=== PATIENT | female | born 1965 | race Caucasian/White ===

== ENCOUNTER 2023-06-19 14:20 | Emergency (ER) | payer SELFPAY ==
[2023-06-19 14:50] VITALS: BP 112/69; PULSE 92; RESP 20; TEMP 36.9; O2SAT 96; BMI 18.8
[2023-06-19 15:30] VITALS: BP 112/69; PULSE 92; RESP 16; O2SAT 96
[2023-06-19 15:36] LABS: Coronavirus 19, PCR Not Detected (NotDetected); Influenza B, PCR Not Detected (NotDetected)
[2023-06-19] MEDS: KETOROLAC 30MG/ML VIAL 30 MG IV (15:37)
[2023-06-19] MEDS: ACETAMINOPHEN 1,000MG/100ML VIAL 1000 MG IV (15:37)
[2023-06-19 15:43] LABS: Basophils % 0.4 % (0.1-2.0); Eosinophils % 0.2 % (0.1-12.0); Hematocrit 42.8 % (37.0-47.0); Hemoglobin 14.1 g/dL (12.2-16.2); Lymphocytes # 1.3 K/mm3 (0.7-4.5); Lymphocytes % 10.8 % (10-50); Mean Corpuscular HGB Conc 32.9 g/dL (31.8-35.4); Mean Corpuscular Hemoglobin 29.4 pg (27.0-31.2); Mean Corpuscular Volume 89.2 fl (81-99); Mean Platelet Volume 10.9 fl (7.4-10.4); Monocytes # 0.7 K/mm3 (0.1-1.0); Monocytes % 5.8 % (1.7-9.3); Neutrophils # 9.7 K/mm3 (1.8-7.8); Neutrophils % 82.7 % (37.0-80.0); Platelet Count 137 K/mm3 (142-424); Red Cell Distribution Width 14.1 % (11.5-17.5); White Blood Count 11.7 K/mm3 (4.8-10.8)
[2023-06-19 15:53] LABS: Chloride 106 mmol/L (98-107); Potassium 3.2 mmoL/L (3.5-5.1); Sodium 137 mmol/L (136-145)
[2023-06-19 15:55] LABS: Alanine Aminotransferase 20 U/L (12-78); Blood Urea Nitrogen 14 mg/dl (7-17); Creatinine Clearance Estimated 80 mL/min (50-200); Estimated Glomerular Filt Rate 102 ml/min (>60); GFR (African American) 124 ML/MIN (>60)
[2023-06-19 15:56] LABS: Albumin Level 3.2 g/dl (3.5-5.0); Albumin/Globulin Ratio 1.3 (1.1-1.8); Alkaline Phosphatase 90 U/L (38-126); Anion Gap 8.2 mEq/L (5-15); Aspartate Amino Transferase 30 U/L (14-36); Bilirubin,Total 0.2 mg/dl (0.2-1.3); Carbon Dioxide 26 mmol/L (22.0-30.0); Creatine Kinase 73 U/L (30-135); Globulin 2.5 g/dL (1.3-3.2); Glucose 99 mg/dl (74-100); Magnesium 1.8 mg/dl (1.6-2.3); Total Protein,Serum 5.7 g/dl (6.3-8.2)
[2023-06-19 16:00] VITALS: BP 122/70; PULSE 94; RESP 18; O2SAT 96
--- NOTE | 2023-06-19 16:03 | CT_ITS ---
PROCEDURE INFORMATION: Exam: CT Head Without Contrast Exam date and time: 06/19/2023 4:11 PM Age: 57 years old Clinical indication: Pain; Headache; Additional info: Bilateral tinnitus TECHNIQUE: Imaging protocol: Computed tomography of the head without contrast. Radiation optimization: All CT scans at this facility use at least one of these dose optimization techniques: automated exposure control; mA and/or kV adjustment per patient size (includes targeted exams where dose is matched to clinical indication); or iterative reconstruction. COMPARISON: No relevant prior studies available. FINDINGS: Brain: Normal. No hemorrhage. Unremarkable white matter. No mass effect. Cerebral ventricles: No ventriculomegaly. Paranasal sinuses: Small fluid level in the left maxillary sinus. Mastoid air cells: Visualized mastoid air cells are well aerated. Bones/joints: Unremarkable. No acute fracture. Soft tissues: Unremarkable. IMPRESSION: 1. No acute intracranial abnormality. 2. Minor left maxillary sinus disease.
--- NOTE | 2023-06-19 16:06 | CT_ITS ---
PROCEDURE INFORMATION: Exam: CT Cervical Spine Without Contrast Exam date and time: 06/19/2023 4:13 PM Age: 57 years old Clinical indication: Neck pain; Additional info: Midline pain rad lle TECHNIQUE: Imaging protocol: Computed tomography of the cervical spine without contrast. Radiation optimization: All CT scans at this facility use at least one of these dose optimization techniques: automated exposure control; mA and/or kV adjustment per patient size (includes targeted exams where dose is matched to clinical indication); or iterative reconstruction. COMPARISON: CT HEAD/BRAIN WO CON 06/19/2023 4:11 PM FINDINGS: Bones/joints: No acute fracture. Normal alignment. Mild disc space narrowing at C5-C6. No significant disc bulge or herniation. No severe spinal canal stenosis. Mild bilateral bony foraminal stenosis at C5-C6. Lungs: Biapical bronchiectasis and chronic appearing pleural thickening. Soft tissues: Unremarkable. IMPRESSION: No acute findings.
--- NOTE | 2023-06-19 16:06 | [facility].EDGENADL ---
Discharge Plan Disposition Patient Disposition: Home, Self-Care Prescriptions Prescriptions: No Action No Known Home Medications Referrals Follow up/Referrals: Brice Hughes DO [Staff Physician] - See instructions Provider,Referral, [Primary Care Provider] - See instructions Activity Restrictions/Add. Instructions Additional Instructions/Restrictions: At this time it was felt you are safe to be discharged home. If new or worsening symptoms please do not hesitate to return the emergency department. Please call and schedule an appointment with Dr. Hughes for next week as soon as you are able to establish care for further workup. Clinical Impressions Clinical Impression: Hypocalcemia, Hypokalemia, Pain, Influenza Discharge ED Provider: Fausto Jones General Adult HPI General Chief complaint: PAIN Stated complaint: arm/back pain Time Seen by Provider: 06/19/23 15:52 Mode of Arrival: Ambulatory Source of Information: Patient Limitations: No Limitations Description of Symptoms (Recalled from ER Triage Doc. 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 Onset was chronic, occurring since March. She is a [employer] worker. It is intermittent however has gotten progressively more continuous, in a bandlike distribution across her mid neck radiating down bilateral lower extremities left worse than right, intermittent left lower extremity pain. She has had no vertiginous symptoms however does have bilateral ringing in her ears which is near persistent. She has had some episodes of incontinence however feels as if she is about to go and does not make it to the restroom in time. No other acute complaints at this time. Denies trauma. No reported saddle anesthesia. Related Data Home Medications Medication Instructions Recorded Confirmed No Known Home Medications 06/19/23 06/19/23 Allergies Allergy/AdvReac Type Severity Reaction Status Date / Time morphine Allergy Verified 06/19/23 15:[address] [place] [address] Disclaimer: The information contained in this section may have been updated after the patient was seen, as this information can be updated by other users. Social History Smoking Status: Current every day smoker alcohol intake: never current occupational status: employed Travel in the last 8 weeks: None ROS Obtained: Yes Systems reviewed as appropriate & no additional complaints except as documented Physical Exam General General appearance: alert and in no apparent distress Head Head exam: atraumatic and normocephalic Eye Eye exam: Present PERRL and EOMI ENT ENT exam: Present mucous membranes moist and TM's normal bilaterally Neck Neck exam: Present normal inspection Chest Chest inspection: Present normal inspection and symmetric chest wall rise Respiratory Respiratory exam: Present normal lung sounds bilaterally; Absent respiratory distress Cardiovascular Cardiovascular exam: Present regular rate and normal rhythm Abdominal Exam Abdominal exam: Present soft; Absent tenderness Extremities Exam Extremities exam: Present normal inspection and other (5 out of 5 strength bilateral upper and lower extremities.) Neurological Exam Neurological exam: Present alert and CN II-XII intact; Absent motor sensory deficit Psychiatric Psychiatric exam: Present normal affect Skin Skin exam: Present warm and dry Medical Decision Making Barry Inquiry Pt receiving controlled substance: No Vital Signs: 06/19/23 14:50 06/19/23 15:30 06/19/23 16:00 Temperature 98.5 F Temperature Source Oral Pulse Rate 92 H 94 H Pulse Rate [Left Radial] 92 H Respiratory Rate 20 16 18 Blood Pressure 112/69 122/70 Blood Pressure [Right Arm] 112/69 Blood Pressure Mean [Right Arm] 83 Blood Pressure Source Automatic Cuff Automatic Cuff Blood Pressure Source [Right Arm] Automatic Cuff Blood Pressure Position Sitting Sitting Blood Pressure Position [Right Arm] Sitting 02 Sat by Pulse Oximetry 96 96 96 Oxygen Delivery Method Room Air Room Air Room Air 06/19/23 16:30 06/19/23 17:00 Temperature Temperature Source Pulse Rate 80 79 Pulse Rate [Left Radial] Respiratory Rate 14 18 Blood Pressure 99/53 L 104/62 L Blood Pressure [Right Arm] Blood Pressure Mean [Right Arm] Blood Pressure Source Automatic Cuff Automatic Cuff Blood Pressure Source [Right Arm] Blood Pressure Position Sitting Sitting Blood Pressure Position [Right Arm] 02 Sat by Pulse Oximetry 95 95 Oxygen Delivery Method Room Air Room Air Lab Data Lab Results 06/19/23 15:27: SARS-CoV-2 (PCR) Not detected, Influenza A Untype (PCR) Detected A, Influenza Type B (PCR) Not detected 06/19/23 15:30: WBC 11.7 H, RBC 4.80, Hgb 14.1, Hct 42.8, MCV 89.2, MCH 29.4, MCHC 32.9, RDW 14.1, Plt Count 137 L, MPV 10.9 H, Neut % (Auto) 82.7 H, Lymph % (Auto) 10.8, [place] % (Auto) 5.8, Eos % (Auto) 0.2, Baso % (Auto) 0.4, Neut # (Auto) 9.7 H, Lymph # (Auto) 1.3, [place] # (Auto) 0.7, Eos # (Auto) 0.0, Baso # (Auto) 0.0, Sodium 137, Potassium 3.2 L, Chloride 106, Carbon Dioxide 26, Anion Gap 8.2, BUN 14, Creatinine 0.60, Estimated Creat Clear 80, Estimated GFR 102, Est GFR ( Amer) 124, Glucose 99, Calcium 8.0 L, Magnesium 1.8, Total Bilirubin 0.2, AST 30, ALT 20, Alkaline Phosphatase 90, Total Creatine Kinase 73, Total Protein 5.7 L, Albumin 3.2 L, Globulin 2.5, Albumin/Globulin Ratio 1.3 06/19/23 16:53: Urine Color Yellow, Urine Appearance Clear, Urine pH 6.0, Ur Specific [place] 1.020, Urine Protein 1+, Urine Glucose (UA) Negative, Urine Ketones Trace, Urine Blood 1+, Urine Nitrate Negative, Urine Bilirubin Negative, Urine Urobilinogen 1.0, Ur Leukocyte Esterase Negative, Urine RBC Occasional, Urine WBC 3-5, Ur Squamous Epith Cells Occasional, Urine Bacteria Trace 06/19/23 15:30 06/19/23 15:30 Orders (Tests/Meds): ED MEDICATIONS Discontinued Medications Generic Name Dose Route Start Last Admin Trade Name Freq PRN Reason Stop Dose Admin Acetaminophen 1,000 mg 06/19/23 15:08 06/19/23 15:37 Acetaminophen 1,000mg/100ml Vial IV 06/19/23 15:09 1,000 mg ONCE ONE Administration Calcium Carbonate 500 mg 06/19/23 17:20 06/19/23 17:42 Oyster Shell Calcium (Elemental) 500mg Tab PO 06/19/23 17:21 500 mg ONCE ONE Administration Ketorolac Tromethamine 30 mg 06/19/23 15:08 06/19/23 15:37 Ketorolac 30mg/Ml Vial IV 06/19/23 15:09 30 mg ONCE ONE Administration Potassium Chloride 40 meq 06/19/23 17:20 06/19/23 17:41 Potassium Chloride 20meq Tab PO 06/19/23 17:21 40 meq ONCE ONE Administration ORDERS Category Date Time Status CT cervical spine wo con Stat Cat Scan 06/19/23 16:[address] head/brain wo con Stat Cat Scan 06/19/23 16:03 Completed CBC w/Auto Diff [Complete Blood Count Auto Diff] Stat Lab 06/19/23 15:30 Completed CK [Creatine Kinase] Stat Lab 06/19/23 15:30 Completed CMP [Comprehensive Metabolic Panel] Stat Lab 06/19/23 15:30 Completed MG [Magnesium] Stat Lab 06/19/23 15:30 Completed Rapid PCR Covid and Flu A/B Stat Lab 06/19/23 15:27 Completed UA [Urinalysis and Microscopic] Stat Lab 06/19/23 16:53 Completed Medical Decision Narrative: In summary patient is a 57-year-old female past medical history described above who presents emergency department for evaluation of pain that is chronic. Patient is hemodynamically stable nontoxic-appearing arrival, afebrile with a nonfocal neurologic exam. Differential diagnosis includes intracranial mass, cervical spine pathology, myositis, radiculopathy, among others. Workup will be conducted with hematologic labs, urinalysis, noncontrasted CT scan of the head and cervical spine, postvoid residual. Initial inventions include Tylenol and Toradol. Workup reviewed by me, hematologic labs are nonactionable, mild hypokalemia and hypocalcemia that is not critical and will be repleted orally, she does have influenza A but states that she tested positive for it last week. CT head informally interpreted by me, no large intra-axial hemorrhage or midline shift. Formal read shows moderate left maxillary sinus disease, no acute intracranial abnormality. PVR 25 mL not concerning for spinal cord compression. Given this patient is appropriate for discharge at this time and will follow-up on an outpatient basis to establish care with Dr. Hughes in the coming days. Critical Care Critical Care Time Critical Care Time: No
[2023-06-19 16:30] VITALS: BP 99/53; PULSE 80; RESP 14; O2SAT 95
[2023-06-19 16:30] LABS: Influenza A, PCR Detected (NotDetected)
--- NOTE | 2023-06-19 16:39 | PC.NURSE ---
Pt resting. No needs voiced. Call light within reach.
[2023-06-19 17:00] VITALS: BP 104/62; PULSE 79; RESP 18; O2SAT 95
[2023-06-19 17:00] LABS: Microscopic, Urine URINE MICROSCOPIC (MICROSCOPIC)
--- NOTE | 2023-06-19 17:21 | PC.NURSE ---
POST VOID 25MLS. NOTIFIED
[2023-06-19 17:26] LABS: Appearance,Urine CLEAR (Clear); Bilirubin,Urine Negative (Negative); Blood, Urine 1+ (Negative); Color,Urine YELLOW (Yellow); Glucose,Urine (UA) Negative (Negative); Ketones,Urine TRACE (Negative); Leukocyte Esterase,Urine Negative (Negative); Nitrate,Urine Negative (Negative); Protein,Urine 1+ (Negative)
[2023-06-19 17:32] LABS: Bacteria,Urine Trace /lpf; RBC,Urine Occasional #/hpf (0-3); Squamous Epithelial Cell,Urine Occasional #/hpf (0-5)
[2023-06-19] MEDS: POTASSIUM CHLORIDE 20MEQ TAB 40 MEQ PO (17:41)
[2023-06-19] MEDS: OYSTER SHELL CALCIUM (ELEMENTAL) 500MG TAB 500 MG PO (17:42)
--- NOTE | 2023-06-19 17:45 | PC.NURSE ---
DR SMITH AT BEDSIDE TO UPDATE PT
[2023-06-19 17:49] VITALS: BP 118/70; PULSE 78; RESP 18; TEMP 36.8; O2SAT 99
== END 2023-06-19 17:52 | disposition home or self-care (01) ==
PROVIDERS: Emergency Provider Emergency Medicine
DX: M54.2 Cervicalgia (principal); M54.6 Pain in thoracic spine; M79.604 Pain in right leg; M79.605 Pain in left leg; M79.602 Pain in left arm; E83.51 Hypocalcemia; E87.6 Hypokalemia; R32 Unspecified urinary incontinence; J10.89 Influenza due to other identified influenza virus with other manifestations; F17.200 Nicotine dependence, unspecified, uncomplicated; Z85.51 Personal history of malignant neoplasm of bladder
CPT/HCPCS: 70450; 72125; 80053; 81001; 82550; 83735; 85025; 87636; 96374; 96375; 99285; J0131

== ENCOUNTER 2023-07-04 15:56 | Observation (INO) | payer SELFPAY ==
[2023-07-04] VITALS (9 sets, daily range): BP systolic 109–134; BP diastolic 68–90; PULSE 81–116; RESP 16–20; TEMP 36.6–36.8; O2SAT 89–100; BMI 18.5
--- NOTE | 2023-07-04 | ECG_ITS ---
APPROVED REPORT Exam: Resting ECG HR:111 bpm ECG Measurements Heart Rate 111 AXES WI 136 P 82 QRSd 82 QRS 66 QT 317 T 59 QTc 383 Conclusion SINUS TACHYCARDIA ABNORMAL RHYTHM ECG UNCONFIRMED REPORT Electronically signed by : Ciaran Park MD 07/05/2023 20:01:03
--- NOTE | 2023-07-04 16:04 | PC.NURSE ---
PT PLACED ON 2L/NC. ROOM AIR SAT 89%
--- NOTE | 2023-07-04 16:15 | ED_ITS ---
Discharge Plan Disposition Chief Complaint: Shortness of Breath/Dyspnea Discharge ED Provider: Fausto Jones HPI <KUSH Mora - Last Filed: 07/04/23 17:38> General Chief Complaint: Shortness of Breath/Dyspnea Stated Complaint: SOA, back pain Time Seen by Provider: 07/04/23 16:14 Mode of Arrival: Wheelchair Source of Information: Patient Limitations: No Limitations Description of Symptoms (Recalled from ER Triage Doc. by RN): PT C/O SHORTNESS OF BREATH X 2 WEEKS. RECENTLY HAD FLU. REPORTS DIARRHEA, RESOLVED. COUGH AND BACK PAIN. History of Present Illness HPI narrative: Patient is a 57-year-old female with only significant [place]ub[place] history of ongoing tobaccoism but not on any home medications, and no chronic medical conditions who was recently diagnosed approximately 2 weeks ago with the flu. Patient reports increasing shortness of breath over those 2 weeks. And now patient gives a several day history of right-sided chest wall pain worse with breathing and movement but it does not radiate. She denies cardiac type chest pain fever chills hemoptysis hematochezia melena hematemesis. She reports a wet somewhat productive cough. There is no aggravating or relieving factors. Related Data Home Medications Medication Instructions Recorded Confirmed No Known Home Medications 06/19/23 07/04/23 Allergies Allergy/AdvReac Type Severity Reaction Status Date / Time morphine Allergy Verified 06/19/23 15:08 PFSH <KUSH Mora - Last Filed: 07/04/23 17:38> [facility] Disclaimer: The information contained in this section may have been updated after the patient was seen, as this information can be updated by other users. Social History (Updated 06/19/23 @ 17:48 by Fausto Jones MD) Smoking Status: Current every day smoker alcohol intake: never current occupational status: employed Travel in the last 8 weeks: None <KUSH Mora - Last Filed: 07/04/23 17:38> ROS Obtained: Yes Systems reviewed as appropriate & no additional complaints except as documented Physical Exam <KUSH Mora - Last Filed: 07/04/23 17:38> Narrative Physical exam: The patient is a thin, petite, unwell appearing, cachectic appearing 57-year-old female who otherwise is in no acute distress General General appearance: alert, in no apparent distress and other (Appears to be unwell) Head Head exam: atraumatic and normal inspection Eye Eye exam: Present normal appearance, PERRL and EOMI ENT ENT exam: Present normal exam, normal oropharynx and mucous membranes moist Neck Neck exam: Present normal inspection, full ROM and trachea midline; Absent lymphadenopathy Chest Chest inspection: Present normal inspection and symmetric chest wall rise; Absent tenderness Respiratory Respiratory exam: Present other (Deep breath provokes cough however breath sounds are heard to bases bilaterally. Patient has right greater than left in spiratory and expiratory wheezes and rhonchi.); Absent respiratory distress or accessory muscle use Cardiovascular Cardiovascular exam: Present normal rhythm, tachycardia, normal heart sounds, +S1 and +S2 Abdominal Exam Abdominal exam: Present soft and normal bowel sounds; Absent tenderness, guarding or rebound Extremities Exam Extremities exam: Present normal inspection and full ROM Neurological Exam Neurological exam: Present alert, oriented X3 and CN II-XII intact Psychiatric Psychiatric exam: Present normal affect and normal mood Skin Skin exam: Present warm, dry and normal color HEART Score <KUSH Mora - Last Filed: 07/04/23 17:38> HEART Score HEART Score assessment performed?: Yes History (anamnesis): Slightly suspicious ECG: Normal Age: 45-65 years Risk factors: 1-2 risk factors Troponin: </= normal limit HEART Score: 2 <Fausto Jones MD - Last Filed: 07/04/23 18:03> HEART Score HEART Score: 2 Critical Care <KUSH Mora - Last Filed: 07/04/23 17:38> Critical Care Time Critical Care Time: Yes Attestation: On 07/04/23, the high probability of a clinically significant, sudden or life threatening deterioration of the following system(s) required my full and direct attention, intervention and personal management. The time I documented below is in addition to time spent performing reported procedures but includes the following listed in this critical care notation. Total Time Total Critical Care Time: 30 Medical Decision Making <KUSH Mora - Last Filed: 07/04/23 17:38> Medical Records Medical records reviewed: Yes I reviewed the patient's medical records. Vital Signs Vital Signs: 07/04/23 15:58 07/04/23 16:16 07/04/23 16:30 Temperature 97.9 F Temperature Source Oral Pulse Rate 114 H 101 H Pulse Rate [Apical] 116 H Respiratory Rate 20 18 18 Blood Pressure 129/88 120/69 Blood Pressure [Right Arm] 129/88 Blood Pressure Mean 86 Blood Pressure Mean [Right Arm] 101 Blood Pressure Source [Right Arm] Automatic Cuff Blood Pressure Position [Right Arm] Sitting 02 Sat by Pulse Oximetry 89 L 92 L 92 L Oxygen Delivery Method Room Air Nasal Cannula Nasal Cannula Oxygen Flow Rate (LPM) 2 3 07/04/23 17:12 07/04/23 17:30 Temperature Temperature Source Pulse Rate 97 H 97 H Pulse Rate [Apical] Respiratory Rate 16 16 Blood Pressure 134/69 109/68 L Blood Pressure [Right Arm] Blood Pressure Mean 93 81 Blood Pressure Mean [Right Arm] Blood Pressure Source [Right Arm] Blood Pressure Position [Right Arm] 02 Sat by Pulse Oximetry 100 98 Oxygen Delivery Method Oxygen Flow Rate (LPM) Lab Data Lab results reviewed: Yes I reviewed the patient's lab results. Labs: Lab Results 07/04/23 16:16: WBC 27.9 H*, RBC 3.89 L, Hgb 11.6 L, Hct 35.9 L, MCV 92.5, MCH 29.8, MCHC 32.2, RDW 14.3, Plt Count 606 H, MPV 8.9, Neut % (Auto) 86.9 H, Lymph % (Auto) 7.4 L, [place] % (Auto) 4.7, Eos % (Auto) 0.6, Baso % (Auto) 0.4, Neut # (Auto) 24.3 H, Lymph # (Auto) 2.1, [place] # (Auto) 1.3 H, Eos # (Auto) 0.2, Baso # (Auto) 0.1, Total Counted 100, Neutrophils % (Manual) 79 H, Lymphocytes % (Manual) 18, Monocytes % (Manual) 3, Platelet Estimate Moderate increase, RBC Morphology Normal, PT 11.2, INR 1.04, D-Dimer 1.49 H, Sodium 140, Potassium 3.8, Chloride 105, Carbon Dioxide 31 H, Anion Gap 7.8, BUN 13, Creatinine 0.50 L, Estimated Creat Clear 94, Estimated GFR 126, Est GFR ( Amer) 153, Glucose 103 H, Lactate 1.4, Calcium 8.2 L, Total Bilirubin 0.2, AST 33, ALT 23, Alkaline Phosphatase 156 H, Troponin I < 0.01, Total Protein 6.3, Albumin 2.6 L, Globulin 3.7 H, Albumin/Globulin Ratio 0.7 L, Procalcitonin 0.394 07/04/23 16:16 07/04/23 16:16 Response Orders (Tests/Meds): ED MEDICATIONS Generic Name Dose Route Start Last Admin Trade Name Freq PRN Reason Stop Dose Admin Acetaminophen 650 mg 07/04/23 17:35 Acetaminophen 325mg Tab PO 08/03/23 17:34 Q4HP PRN Fever or Mild Pain (1-3) Albuterol/Ipratropium 3 ml 07/04/23 18:00 Ipratropium/Albuterol 3 Ml [facility] 08/03/23 17:59 Q6RT [facility] Dexamethasone Sodium Phosphate 10 mg 07/04/23 17:21 07/04/23 17:22 Dexamethasone 4mg/Ml 1ml Vial IV 07/04/23 17:22 10 mg ONCE ONE Administration Enoxaparin Sodium 40 mg 07/05/23 09:00 Enoxaparin 40mg/0.4ml Syringe SQ 08/04/23 08:59 DAILY DAVID Piperacillin Sod/Tazobactam 50 mls @ 100 mls/hr 07/04/23 16:45 07/04/23 17:10 Sod 3.375 gm/ Sodium Chloride IV 07/14/23 16:44 100 mls/hr Q6H DAVID Administration Vancomycin/PEG/NADA/Lysine/Water 1.25 gm in 250 mls @ 125 mls/hr 07/04/23 16:45 Vancomycin 1.25gm/250ml (Peg) Premix IV 07/04/23 18:44 ONCE ONE Miscellaneous 1 each 07/04/23 16:45 Vancomycin Consult Request NOTAPPLIC 08/03/23 16:44 CONSULT PHARMACY [facility] Nicotine 21 mg 07/04/23 17:37 Nicotine 21mg/24hr Patch TD 08/03/23 17:36 DAILYP PRN Nicotine Cravings Sodium Chloride 3 ml 07/04/23 17:37 Sodium Chloride 3% 15ml [facility] 08/03/23 17:36 ONCE PRN INDUCE SPUTUM COLLECTION Discontinued Medications Generic Name Dose Route Start Last Admin Trade Name Freq PRN Reason Stop Dose Admin Acetaminophen 1,000 mg 07/04/23 16:19 07/04/23 17:22 Acetaminophen 1,000mg/100ml Vial IV 07/04/23 16:20 1,000 mg ONCE ONE Administration Albuterol/Ipratropium 3 ml 07/04/23 16:19 07/04/23 17:19 Ipratropium/Albuterol 3 Ml Neb IH 07/04/23 16:20 3 ml ONCE ONE Administration Dexamethasone Sodium Phosphate 10 mg 07/04/23 16:19 07/04/23 17:03 Dexamethasone 4mg/Ml 1ml Vial IM 07/04/23 16:20 Not Given ONCE ONE Azithromycin 500 mg/ Sodium 250 mls @ 250 mls/hr 07/04/23 16:30 07/04/23 17:17 Chloride IV 07/14/23 16:29 Not Given Q24H DAVID Lactated Ringer's 1,000 mls @ 999 mls/hr 07/04/23 16:19 07/04/23 16:30 Lactated Ringer's 1000 Ml Bag IV 07/04/23 17:19 999 mls/hr .Q1H1M ONE Administration Ceftriaxone Sodium 1 gm/ 50 mls @ 100 mls/hr 07/04/23 16:30 07/04/23 17:18 Sodium Chloride IV 07/14/23 16:29 Not Given Q24H DAVID Iopamidol 70 ml 07/04/23 17:04 07/04/23 17:05 Iopamidol-370 (76%);100ml Bottle IV 07/04/23 17:05 70 ml ONCE ONE Administration Ketorolac Tromethamine 15 mg 07/04/23 16:19 07/04/23 17:02 Ketorolac 30mg/Ml Vial IV 07/04/23 16:20 15 mg ONCE ONE Administration Sodium Chloride 10 ml 07/04/23 17:04 07/04/23 17:05 Sodium Chloride 0.9% 10ml Syr (Rad Only) IV 07/04/23 17:05 10 ml ONCE ONE Administration Sodium Chloride 50 ml 07/04/23 17:04 07/04/23 17:05 0.9 % Sodium Chloride 50 Ml Vial IV 07/04/23 17:05 50 ml ONCE ONE Administration ORDERS Category Date Time Status CT angio chest PE protocol Stat Cat Scan 07/04/23 16:30 Completed Pulmonology Consult [Consult to Pulmonology] [CONS] Cons 07/05/23 07:00 Active Routine Chest XR -- portable [XR chest portable] Stat Exams 07/04/23 16:20 Completed CBC w/Auto Diff [Complete Blood Count Auto Diff] Stat Lab 07/04/23 16:16 Completed CMP [Comprehensive Metabolic Panel] Stat Lab 07/04/23 16:16 Completed Complete Blood Count Auto Diff AMLAB Lab 07/05/23 06:00 Ordered Comprehensive Metabolic Panel AMLAB Lab 07/05/23 06:00 Ordered D-Dimer Stat Lab 07/04/23 16:16 Completed Full Resp Panel w/COVID ([facility]) Routine Lab 07/04/23 16:30 Received INR [Prothrombin Time INR] Stat Lab 07/04/23 16:16 Completed Lactic Acid Stat Lab 07/04/23 16:16 Completed Magnesium AMLAB Lab 07/05/23 06:00 Ordered Procalcitonin Stat Lab 07/04/23 16:16 Completed Trop I [Troponin I] Stat Lab 07/04/23 16:16 Completed Troponin I Q3H Lab 07/04/23 19:30 Ordered Troponin I Q3H Lab 07/04/23 22:30 Ordered Blood Culture Stat Micro 07/04/23 16:50 Received Sputum Culture & Gram Stain Stat Micro 07/04/23 17:37 Ordered Tissue Perfus/Sepsis Re-Eval Sepsis Re-Evaluation Performed: Yes Date Performed: 06/06/23 Time Performed: 17:22 MDM Narrative Medical Decision Narrative: In summary patient is a 57-year-old female who presents to the emergency department for evaluation of shortness of breath and right chest wall pain. Patient is tachycardic but normotensive on arrival but afebrile. Physical exam shows inspiratory and expiratory wheezes right greater than left as well as faint rhonchi bilaterally. Patient has no tachypnea or accessory muscle use. Palpation of the chest wall is nontender. Patient reports increasing pain with deep breath. She denies subjective fever chills hemoptysis hematochezia melena hematemesis hematuria. Differential diagnosis includes post influenza pneumonia, PE, ACS, neoplasm etc. Initial workup will be conducted with hematologic labs radiographic studies full respiratory panel. Initial interventions include DuoNeb Decadron acetaminophen and Toradol. Initial workup reviewed by me shows sepsis without septic shock due to elevated white count with left shift elevated procalcitonin, D-dimer of 1.49 and my informal interpretation of her plain film x-ray and CTA PE protocol does not show any evidence of thrombus but does shows multifocal pneumonia with a likely associated right parapneumonic effusion the base. Upon repeat evaluation has had some interval improvement after DuoNeb and steroids with her subjective shortness of breath and some reduction of her chest wall pain after administration of Toradol and acetaminophen. Given this I discussed with the patient her findings and via shared decision making I recommended admission to the hospital for continued IV antibiotics for sepsis. Patient was agreeable. Spoke with hospital medicine regarding the patient management of her care. Plan is for hospital medicine to admit. <Fausto Jones MD - Last Filed: 07/04/23 18:03> [place] Inquiry Pt receiving controlled substance: No Vital Signs Vital Signs: 07/04/23 15:58 07/04/23 16:16 07/04/23 16:30 Temperature 97.9 F Temperature Source Oral Pulse Rate 114 H 101 H Pulse Rate [Apical] 116 H Respiratory Rate 20 18 18 Blood Pressure 129/88 120/69 Blood Pressure [Right Arm] 129/88 Blood Pressure Mean 86 Blood Pressure Mean [Right Arm] 101 Blood Pressure Source [Right Arm] Automatic Cuff Blood Pressure Position [Right Arm] Sitting 02 Sat by Pulse Oximetry 89 L 92 L 92 L Oxygen Delivery Method Room Air Nasal Cannula Nasal Cannula Oxygen Flow Rate (LPM) 2 3 07/04/23 17:12 07/04/23 17:30 Temperature Temperature Source Pulse Rate 97 H 97 H Pulse Rate [Apical] Respiratory Rate 16 16 Blood Pressure 134/69 109/68 L Blood Pressure [Right Arm] Blood Pressure Mean 93 81 Blood Pressure Mean [Right Arm] Blood Pressure Source [Right Arm] Blood Pressure Position [Right Arm] 02 Sat by Pulse Oximetry 100 98 Oxygen Delivery Method Oxygen Flow Rate (LPM) Lab Data Labs: Lab Results 07/04/23 16:16: WBC 27.9 H*, RBC 3.89 L, Hgb 11.6 L, Hct 35.9 L, MCV 92.5, MCH 29.8, MCHC 32.2, RDW 14.3, Plt Count 606 H, MPV 8.9, Neut % (Auto) 86.9 H, Lymph % (Auto) 7.4 L, [place] % (Auto) 4.7, Eos % (Auto) 0.6, Baso % (Auto) 0.4, Neut # (Auto) 24.3 H, Lymph # (Auto) 2.1, [place] # (Auto) 1.3 H, Eos # (Auto) 0.2, Baso # (Auto) 0.1, Total Counted 100, Neutrophils % (Manual) 79 H, Lymphocytes % ( Manual) 18, Monocytes % (Manual) 3, Platelet Estimate Moderate increase, RBC Morphology Normal, PT 11.2, INR 1.04, D-Dimer 1.49 H, Sodium 140, Potassium 3.8, Chloride 105, Carbon Dioxide 31 H, Anion Gap 7.8, BUN 13, Creatinine 0.50 L, Estimated Creat Clear 94, Estimated GFR 126, Est GFR ( Amer) 153, Glucose 103 H, Lactate 1.4, Calcium 8.2 L, Total Bilirubin 0.2, AST 33, ALT 23, Alkaline Phosphatase 156 H, Troponin I < 0.01, Total Protein 6.3, Albumin 2.6 L, Globulin 3.7 H, Albumin/Globulin Ratio 0.7 L, Procalcitonin 0.394 Response Orders (Tests/Meds): ED MEDICATIONS Generic Name Dose Route Start Last Admin Trade Name Freq PRN Reason Stop Dose Admin Acetaminophen 650 mg 07/04/23 17:35 Acetaminophen 325mg Tab PO 08/03/23 17:34 Q4HP PRN Fever or Mild Pain (1-3) Albuterol/Ipratropium 3 ml 07/04/23 18:00 Ipratropium/Albuterol 3 Ml Neb IH 08/03/23 17:59 Q6RT DAVID Dexamethasone Sodium Phosphate 10 mg 07/04/23 17:21 07/04/23 17:22 Dexamethasone 4mg/Ml 1ml Vial IV 07/04/23 17:22 10 mg ONCE ONE Administration Enoxaparin Sodium 40 mg 07/05/23 09:00 Enoxaparin 40mg/0.4ml Syringe SQ 08/04/23 08:59 DAILY DAVID Piperacillin Sod/Tazobactam 50 mls @ 100 mls/hr 07/04/23 16:45 07/04/23 17:10 Sod 3.375 gm/ Sodium Chloride IV 07/14/23 16:44 100 mls/hr Q6H DAVID Administration Vancomycin/PEG/NADA/Lysine/Water 1.25 gm in 250 mls @ 125 mls/hr 07/04/23 16:45 Vancomycin 1.25gm/250ml (Peg) Premix IV 07/04/23 18:44 ONCE ONE Miscellaneous 1 each 07/04/23 16:45 Vancomycin Consult Request NOTAPPLIC 08/03/23 16:44 CONSULT PHARMACY [facility] Nicotine 21 mg 07/04/23 17:37 Nicotine 21mg/24hr Patch TD 08/03/23 17:36 DAILYP PRN Nicotine Cravings Sodium Chloride 3 ml 07/04/23 17:37 Sodium Chloride 3% 15ml Neb 08/03/23 17:36 ONCE PRN INDUCE SPUTUM COLLECTION Discontinued Medications Generic Name Dose Route Start Last Admin Trade Name Freq PRN Reason Stop Dose Admin Acetaminophen 1,000 mg 07/04/23 16:19 07/04/23 17:22 Acetaminophen 1,000mg/100ml Vial IV 07/04/23 16:20 1,000 mg ONCE ONE Administration Albuterol/Ipratropium 3 ml 07/04/23 16:19 07/04/23 17:19 Ipratropium/Albuterol 3 Ml Neb 07/04/23 16:20 3 ml ONCE ONE Administration Dexamethasone Sodium Phosphate 10 mg 07/04/23 16:19 07/04/23 17:03 Dexamethasone 4mg/Ml 1ml Vial IM 07/04/23 16:20 Not Given ONCE ONE Azithromycin 500 mg/ Sodium 250 mls @ 250 mls/hr 07/04/23 16:30 07/04/23 17:17 Chloride IV 07/14/23 16:29 Not Given Q24H DAVID Lactated Ringer's 1,000 mls @ 999 mls/hr 07/04/23 16:19 07/04/23 16:30 Lactated Ringer's 1000 Ml Bag IV 07/04/23 17:19 999 mls/hr .Q1H1M ONE Administration Ceftriaxone Sodium 1 gm/ 50 mls @ 100 mls/hr 07/04/23 16:30 07/04/23 17:18 Sodium Chloride IV 07/14/23 16:29 Not Given Q24H DAVID Iopamidol 70 ml 07/04/23 17:04 07/04/23 17:05 Iopamidol-370 (76%);100ml Bottle IV 07/04/23 17:05 70 ml ONCE ONE Administration Ketorolac Tromethamine 15 mg 07/04/23 16:19 07/04/23 17:02 Ketorolac 30mg/Ml Vial IV 07/04/23 16:20 15 mg ONCE ONE Administration Sodium Chloride 10 ml 07/04/23 17:04 07/04/23 17:05 Sodium Chloride 0.9% 10ml Syr (Rad Only) IV 07/04/23 17:05 10 ml ONCE ONE Administration Sodium Chloride 50 ml 07/04/23 17:04 07/04/23 17:05 0.9 % Sodium Chloride 50 Ml Vial IV 07/04/23 17:05 50 ml ONCE ONE Administration ORDERS Category Date Time Status CT angio chest PE protocol Stat Cat Scan 07/04/23 16:30 Completed Pulmonology Consult [Consult to Pulmonology] [CONS] Cons 07/05/23 07:00 Active Routine Chest XR -- portable [XR chest portable] Stat Exams 07/04/23 16:20 Completed CBC w/Auto Diff [Complete Blood Count Auto Diff] Stat Lab 07/04/23 16:16 Completed CMP [Comprehensive Metabolic Panel] Stat Lab 07/04/23 16:16 Completed Complete Blood Count Auto Diff AMLAB Lab 07/05/23 06:00 Ordered Comprehensive Metabolic Panel AMLAB Lab 07/05/23 06:00 Ordered D-Dimer Stat Lab 07/04/23 16:16 Completed Full Resp Panel w/COVID ([facility]) Routine Lab 07/04/23 16:30 Received INR [Prothrombin Time INR] Stat Lab 07/04/23 16:16 Completed Lactic Acid Stat Lab 07/04/23 16:16 Completed Magnesium AMLAB Lab 07/05/23 06:00 Ordered Procalcitonin Stat Lab 07/04/23 16:16 Completed Trop I [Troponin I] Stat Lab 07/04/23 16:16 Completed Troponin I Q3H Lab 07/04/23 19:30 Ordered Troponin I Q3H Lab 07/04/23 22:30 Ordered Blood Culture Stat Micro 07/04/23 16:50 Received Sputum Culture & Gram Stain Stat Micro 07/04/23 17:37 Ordered ECG Data Tracing #1: ECG Narrative: Independently interpreted by me, rate is 111, rhythm is regular, axis is normal, no ST elevation in anatomical contiguous leads, QTc 383. MDM Narrative Medical Decision Narrative: In summary patient is a 57-year-old female who presents to the emergency department for evaluation of shortness of breath and right chest wall pain. Patient is tachycardic but normotensive on arrival but afebrile. Physical exam shows inspiratory and expiratory wheezes right greater than left as well as faint rhonchi bilaterally. Patient has no tachypnea or accessory muscle use. Palpation of the chest wall is nontender. Patient reports increasing pain with deep breath. She denies subjective fever chills hemoptysis hematochezia melena hematemesis hematuria. Differential diagnosis includes post influenza pneumonia, PE, ACS, neoplasm etc. Initial workup will be conducted with hematologic labs radiographic studies full respiratory panel. Initial interventions include DuoNeb Decadron acetaminophen and Toradol. Initial workup reviewed by me shows sepsis without septic shock due to elevated white count with left shift elevated procalcitonin, D-dimer of 1.49 and my informal interpretation of her plain film x-ray and CTA PE protocol does not show any evidence of thrombus but does shows multifocal pneumonia with a likely associated right parapneumonic effusion the base. Upon repeat evaluation has had some interval improvement after DuoNeb and steroids with her subjective shortness of breath and some reduction of her chest wall pain after administration of Toradol and acetaminophen. Given this I discussed with the patient her findings and via shared decision making I recommended admission to the hospital for continued IV antibiotics for sepsis. Patient was agreeable. Spoke with hospital medicine regarding the patient management of her care. Plan is for hospital medicine to admit.
--- NOTE | 2023-07-04 16:20 | XR_ITS ---
PROCEDURE INFORMATION: Exam: XR Chest Exam date and time: 07/04/2023 4:28 PM Age: 57 years old Clinical indication: Cough and shortness of breath; Additional info: Cough, right-sided chest pain TECHNIQUE: Imaging protocol: Radiologic exam of the chest. Views: 1 view. COMPARISON: CT CERVICAL SPINE WO CON 06/19/2023 4:13 PM FINDINGS: Lungs: There are scattered indistinct nodular opacities right upper lobe and both lower lobes more pronounced on the right probably infectious in nature and could be further assessed on CT examination of the chest. Pleural spaces: There is blunting of the costophrenic angles more pronounced on the right likely secondary to small pleural effusions. Heart/Mediastinum: Unremarkable. No cardiomegaly. Bones/joints: Deformity left 6th rib secondary to old healed fracture. No acute bony abnormalities. IMPRESSION: Numerous indistinct airspace nodular opacities lung alan likely infectious in nature which could be further assessed on CT exam of the chest.
[2023-07-04] MEDS: LACTATED RINGERS 1000ML 1,000 ML 999 ML IV (16:30)
--- NOTE | 2023-07-04 16:30 | CT_ITS ---
PROCEDURE INFORMATION: Exam: CTA Chest With Contrast Exam date and time: 07/04/2023 4:56 PM Age: 57 years old Clinical indication: Pain; Shortness of breath; Right-sided; Additional info: R chest pain, recent flu, tachy TECHNIQUE: Imaging protocol: Computed tomographic angiography of the chest with contrast. Exam focused on the arteries. 3D rendering (Not supervised by radiologist): MIP and/or 3D reconstructed images were created by the technologist. Radiation optimization: All CT scans at this facility use at least one of these dose optimization techniques: automated exposure control; mA and/or kV adjustment per patient size (includes targeted exams where dose is matched to clinical indication); or iterative reconstruction. Contrast material: ISOVUE 370; Contrast volume: 70 ml; Contrast route: INTRAVENOUS (IV); COMPARISON: CR XR CHEST PORTABLE 07/04/2023 4:28 PM FINDINGS: Pulmonary arteries: Pulmonary vasculature is adequately opacified without filling defects or other evidence of acute pulmonary embolism. Aorta: Mild atherosclerotic changes descending thoracic aorta. No aortic aneurysm. Lungs: Scattered heterogeneous consolidative opacities throughout the right lung intermixed with peribronchial tree-in-bud opacities both lung alan likely representing combination of multifocal pneumonia and diffuse bronchiolitis. There is confluent area of enhancing consolidation right lung base in part secondary to atelectasis. There is a chronic granulomatous changes right hilum and right midlung zone. Pleural spaces: There is a small right pleural effusion. Left pleural surface is unremarkable. Heart: Heart is not significantly enlarged. No significant coronary artery calcifications. No significant pericardial effusion. Lymph nodes: Mild mediastinal lymphadenopathy that may be reactive and secondary to the lung pathology. Bones/joints: Unremarkable. No acute fracture. Soft tissues: Unremarkable. IMPRESSION: 1. Negative CT angiogram of the chest. No evidence of acute pulmonary embolism. 2. Scattered multifocal pneumonia right lung superimposed on diffuse bronchiolitis both lung alan. 3. Right basilar subsegmental atelectasis and small parapneumonic right pleural effusion. 4. Mild mediastinal lymphadenopathy that may be reactive in nature but should be followed up for confirmation.
[2023-07-04 16:31] LABS: Basophils # 0.1 K/mm3 (0-0.2); Basophils % 0.4 % (0.1-2.0); Eosinophils # 0.2 K/mm3 (0.0-0.4); Eosinophils % 0.6 % (0.1-12.0); Hematocrit 35.9 % (37.0-47.0); Hemoglobin 11.6 g/dL (12.2-16.2); Lymphocytes # 2.1 K/mm3 (0.7-4.5); Lymphocytes % 7.4 % (10-50); Mean Corpuscular HGB Conc 32.2 g/dL (31.8-35.4); Mean Corpuscular Hemoglobin 29.8 pg (27.0-31.2); Mean Corpuscular Volume 92.5 fl (81-99); Mean Platelet Volume 8.9 fl (7.4-10.4); Monocytes # 1.3 K/mm3 (0.1-1.0); Monocytes % 4.7 % (1.7-9.3); Neutrophils # 24.3 K/mm3 (1.8-7.8); Neutrophils % 86.9 % (37.0-80.0); Platelet Count 606 K/mm3 (142-424); Red Blood Count 3.89 M/mm3 (4.20-5.40); Red Cell Distribution Width 14.3 % (11.5-17.5); White Blood Count 27.9 K/mm3 (4.8-10.8)
[2023-07-04 16:35] LABS: MANUAL DIFFERENTIAL MANUAL DIFFERENTIAL (MANUAL DIFF)
[2023-07-04 16:39] LABS: Alanine Aminotransferase 23 U/L (12-78); Albumin Level 2.6 g/dl (3.5-5.0); Albumin/Globulin Ratio 0.7 (1.1-1.8); Alkaline Phosphatase 156 U/L (38-126); Anion Gap 7.8 mEq/L (5-15); Aspartate Amino Transferase 33 U/L (14-36); Bilirubin,Total 0.2 mg/dl (0.2-1.3); Blood Urea Nitrogen 13 mg/dl (7-17); Calcium 8.2 mg/dl (8.4-10.2); Carbon Dioxide 31 mmol/L (22.0-30.0); Chloride 105 mmol/L (98-107); Creatinine Clearance Estimated 94 mL/min (50-200); Estimated Glomerular Filt Rate 126 ml/min (>60); GFR (African American) 153 ML/MIN (>60); Globulin 3.7 g/dL (1.3-3.2); Glucose 103 mg/dl (74-100); Potassium 3.8 mmoL/L (3.5-5.1); Sodium 140 mmol/L (136-145); Total Protein,Serum 6.3 g/dl (6.3-8.2)
[2023-07-04 16:41] LABS: INR 1.04 (0.9-1.1); Prothrombin Time 11.2 seconds (10.1-12.5)
[2023-07-04 16:54] LABS: Lactic Acid 1.4 mmol/L (0.7-2.1); Troponin I < 0.01 ng/ml (0.00-0.034)
[2023-07-04 16:56] LABS: Procalcitonin 0.394 ng/mL (0.0-2.0)
[2023-07-04 16:59] LABS: D-Dimer 1.49 ug/mL (0.0-0.5)
[2023-07-04] MEDS: KETOROLAC 30MG/ML VIAL 15 MG IV (17:02)
[2023-07-04 17:04] LABS: Lymphocytes % 18 % (10-50); Monocytes % 3 % (2-9); Neutrophils % 79 % (42-76); Platelet Estimate Moderate Increase; RBC Morphology Normal; Total Cells Counted 100
[2023-07-04] MEDS: SODIUM CHLORIDE 0.9% 10ML SYR (RAD ONLY) 10 ML IV (17:05)
[2023-07-04] MEDS: IOPAMIDOL-370 (76%);100ML BOTTLE 70 ML IV (17:05)
[2023-07-04] MEDS: 0.9 % SODIUM CHLORIDE 50 ML VIAL IV (17:05)
[2023-07-04] MEDS: PIPERCILLIN/TAZO 3.375 GM in 0.9 % SODIUM CHLORIDE 50 ML IV ×2 (17:10→22:27)
[2023-07-04 17:17] LABS: Adenovirus,PCR Not Detected (NotDetected); Coronavirus 19, PCR Not Detected (NotDetected); Coronavirus 229E Not Detected (NotDetected); Coronavirus NL63 Not Detected (NotDetected); Coronavirus OC43 Not Detected (NotDetected); Coronovirus HKU1,PCR Not Detected (NotDetected); Human Metapneumovirus Not Detected (NotDetected); Influenza A, PCR Not Detected (NotDetected); Influenza AH1, 2009 Not Detected (NotDetected); Influenza AH1, PCR Not Detected (NotDetected); Influenza AH3,PCR Not Detected (NotDetected); Influenza B, PCR Not Detected (NotDetected); Parainfluenza 1, PCR Not Detected (NotDetected); Parainfluenza 2, PCR Not Detected (NotDetected); Parainfluenza 3, PCR Not Detected (NotDetected); Parainfluenza 4, PCR Not Detected (NotDetected); Respiratory Syncytial Virus Not Detected (NotDetected); Rhinovirus/Enterovirus Not Detected (NotDetected)
[2023-07-04] MEDS: IPRATROPIUM/ALBUTEROL 3 ML NEB IH ×2 (17:19→23:00)
[2023-07-04] MEDS: ACETAMINOPHEN 1,000MG/100ML VIAL 1000 MG IV (17:22)
[2023-07-04] MEDS: DEXAMETHASONE 4MG/ML 1ML VIAL 10 MG IV (17:22)
--- NOTE | 2023-07-04 17:34 | PC.NURSE ---
JOSE LUTZ SPEAKING WITH DR BLANK FOR ADMISSION
--- NOTE | 2023-07-04 17:38 | PC.NURSE ---
PROPERTY AND EQUIPMENT CLERK NOTIFIED OF ADMISSION
--- NOTE | 2023-07-04 17:39 | P.HP_ITS ---
History of Present Illness *Admission Date: 07/04/23 *Reason for visit:: dyspnea *History of present illness: Ms. Longoria is a 57-year-old female with no significant past medical history. Smokes 1 to 2 packs a day. 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 States that a month ago she had flu and is just not gotten better since. Over the past week has developed worsening cough, diarrhea, pain in the right side of her back. Chills and subjective fevers but no juan fever. Denies any nausea or vomiting or precordial chest pain. On workup in the ER, she was found to be tachycardic, with new oxygen requirement. Leukocytosis of 27,000. Chest imaging obtained showing diffuse bilateral multifocal pneumonia with pleural effusion (suspected parapneumonic). Requiring oxygen in the ER. Initiated on antibiotics with vancomycin and Zosyn and treated with DuoNebs. Medicine consulted for admission and further management. On arrival to the floor, patient is feeling little bit better. Is currently satting 90 to 92% on room air. Reports she is never been diagnosed with COPD but is smoked 1 to 2 packs a day for over 50 years. [facility] Disclaimer: The information contained in this section may have been updated after the patient was seen, as this information can be updated by other users. Social History Smoking Status: Current every day smoker alcohol intake: never current occupational status: employed Travel in the last 8 weeks: None Review of Systems Review of Systems Review of systems (narrative): 14 point review of systems performed, pertinent positives and negatives as per HPI Meds Home Medications and Allergies Home Medications Medication Instructions Recorded Confirmed Type No Known Home Medications 06/19/23 07/04/23 History New Prescriptions to Start Prescriptions: Allergies Allergy/AdvReac Type Severity Reaction Status Date / Time morphine Allergy Verified 06/19/23 15:08 Exam Data for Last 24 hours Vital signs and Labs for Last 24 Hours: Temp Pulse Resp BP Pulse Ox O2 Del Method O2 Flow Rate 97.9 F 97 H 16 109/68 L 98 Nasal Cannula 3 07/04/23 15:58 07/04/23 17:30 07/04/23 17:30 07/04/23 17:30 07/04/23 17:30 07/04/23 16:30 07/04/23 16:30 Laboratory Results - last 24 hr 07/04/23 16:16: WBC 27.9 H*, RBC 3.89 L, Hgb 11.6 L, Hct 35.9 L, MCV 92.5, MCH 29.8, MCHC 32.2, RDW 14.3, Plt Count 606 H, MPV 8.9, Neut % (Auto) 86.9 H, Lymph % (Auto) 7.4 L, [place] % (Auto) 4.7, Eos % (Auto) 0.6, Baso % (Auto) 0.4, Neut # (Auto) 24.3 H, Lymph # (Auto) 2.1, [place] # (Auto) 1.3 H, Eos # (Auto) 0.2, Baso # (Auto) 0.1, Total Counted 100, Neutrophils % (Manual) 79 H, Lymphocytes % (Manual) 18, Monocytes % (Manual) 3, Platelet Estimate Moderate increase, RBC Morphology Normal, PT 11.2, INR 1.04, D-Dimer 1.49 H, Sodium 140, Potassium 3.8, Chloride 105, Carbon Dioxide 31 H, Anion Gap 7.8, BUN 13, Creatinine 0.50 L, Estimated Creat Clear 94, Estimated GFR 126, Est GFR ( Amer) 153, Glucose 103 H, Lactate 1.4, Calcium 8.2 L, Total Bilirubin 0.2, AST 33, ALT 23, Alkaline Phosphatase 156 H, Troponin I < 0.01, Total Protein 6.3, Albumin 2.6 L, Globulin 3.7 H, Albumin/Globulin Ratio 0.7 L, Procalcitonin 0.394 I & O for Last 24 hours: Intake & Output 07/01/23 07/02/23 07/03/23 07/04/23 23:59 23:59 23:59 23:59 Weight 48.988 kg Constitutional Constitutional: no acute distress and thin *Routine HEENT Exam Head: Present normocephalic Eye: Present EOMI and PERRL ENT: Present mucous membranes moist *Routine Neck Exam Neck: Present supple; Absent lymphadenopathy *Routine Respiratory Exam Respiratory: Present rhonchi, wheezes and crackles Comments: Adventitious sounds bilaterally, crackles worst in left lower base *Routine Cardiovascular Exam Cardiovascular: Present Normal S1 and tachycardia; Absent murmur *Routine Abdominal Exam Abdominal: Present soft and normoactive bowel sounds; Absent tenderness *Routine Rectal Exam Rectal:: deferred *Routine Genitalia Exam Genitalia:: deferred *Routine Extremities Exam Extremities: Absent cyanosis, clubbing or edema *Routine Skin Exam Skin: Present warm; Absent rash *Routine Neurological Exam Neurological: Present alert, oriented X3 and moving all extremities; Absent altered mental status Assessment and Plan *Assessment and plan (1) Sepsis: Status: Acute Category: Medical Code(s): A41.9 - Sepsis, unspecified organism (2) Acute hypoxemic respiratory failure: Status: Acute Category: Medical Code(s): J96.01 - Acute respiratory failure with hypoxia (3) Multifocal pneumonia: Status: Acute Category: Medical Code(s): J18.9 - Pneumonia, unspecified organism (4) Pleural effusion: Status: Acute Category: Medical Code(s): J90 - Pleural effusion, not elsewhere classified (5) Tobacco use disorder: Status: Chronic Category: Medical Code(s): F17.200 - Nicotine dependence, unspecified, uncomplicated Plan Ms. Longoria is a 57-year-old female with extensive smoking history. Reports having had flu about a month ago. Worsening cough and chest discomfort. On arrival found to be hypoxic with pneumonia and meeting sepsis criteria with leukocytosis and tachycardia. Discussed case with the ER provider, request admission for IV antibiotics, persistent pneumonia post flu, and workup with pulmonology. Medicine agreed to admit. Showing some improvement after initiating breathing treatments. Will monitor overnight and have pulmonology see the patient in the morning. Problems addressed as follows: Sepsis secondary to pneumonia with acute hypoxemic respiratory failure Suspected COPD Tobacco use disorder -Meeting sepsis criteria with tachycardia, leukocytosis of 27,000, multifocal pneumonia on chest CT. Personally reviewed CT, shows pleural effusion on right side with dense patchy consolidations. -In light of recent flu, full respiratory panel obtained. Will continue broad- spectrum antibiotics due to risk for MRSA including vancomycin and Zosyn. Monitor for toxicity. -Sputum sample pending, blood cultures obtained. -Continue DuoNebs every 4 hours scheduled -Pulmonology consulted, appreciate their assistance in care -Receiving sepsis bolus -Supplemental oxygen as needed, goal saturation greater than 90%. -CBC, CMP, magnesium ordered for the morning. - Kidney function normal with creatinine 0.5, BUN 13. No significant elec trolyte disturbances. Bicarb 31. Pro-Humberto 0.39. 21 mg nicotine patch as needed daily Full code Regular diet Lovenox 40 mg daily subcu
[2023-07-04] MEDS: RINGERS SOLUTION,LACTATED 500 ML 999 ML IV (17:58)
[2023-07-04] MEDS: LACTATED RINGERS 1000ML 1,000 ML 125 ML IV (18:36)
[2023-07-04] MEDS: VANCOMYCIN/WATER FOR INJ (PEG) 1.25 GM/250 ML PIGGYBACK IV (18:36)
[2023-07-04] MEDS: NICOTINE 21MG/24HR PATCH 21 MG TD (18:42)
[2023-07-04 20:49] LABS: Troponin I < 0.01 ng/ml (0.00-0.034)
[2023-07-04 23:07] LABS: Troponin I < 0.01 ng/ml (0.00-0.034)
[2023-07-05] VITALS (10 sets, daily range): BP systolic 111–127; BP diastolic 68–73; PULSE 76–107; RESP 16–23; TEMP 36.5–37; O2SAT 90–94; BMI 18.4
[2023-07-05] MEDS: PIPERCILLIN/TAZO 3.375 GM in 0.9 % SODIUM CHLORIDE 50 ML IV ×4 (03:48→22:14)
--- NOTE | 2023-07-05 06:00 | PC.NURSE ---
Pt is alert and oriented x4 and currently tolerating RA. Pt has rested well this shift and tolerated fluids and antibiotic therapy well. Pt reported having nightmares, reported to GUILLE Raman. nicotine patch remains in place. Pt denies pain and needs at this time.
[2023-07-05] MEDS: IPRATROPIUM/ALBUTEROL 3 ML NEB IH ×4 (06:25→23:11)
[2023-07-05 06:45] LABS: Basophils % 0.1 % (0.1-2.0); Eosinophils % 0.1 % (0.1-12.0); Hematocrit 34.9 % (37.0-47.0); Hemoglobin 10.8 g/dL (12.2-16.2); Lymphocytes % 4.5 % (10-50); Mean Corpuscular Hemoglobin 28.7 pg (27.0-31.2); Mean Corpuscular Volume 92.7 fl (81-99); Mean Platelet Volume 9.2 fl (7.4-10.4); Monocytes # 0.4 K/mm3 (0.1-1.0); Neutrophils # 21.2 K/mm3 (1.8-7.8); Neutrophils % 93.4 % (37.0-80.0); Platelet Count 565 K/mm3 (142-424); Red Blood Count 3.76 M/mm3 (4.20-5.40); Red Cell Distribution Width 14.2 % (11.5-17.5); White Blood Count 22.7 K/mm3 (4.8-10.8)
[2023-07-05 06:46] LABS: MANUAL DIFFERENTIAL MANUAL DIFFERENTIAL (MANUAL DIFF)
[2023-07-05 06:53] LABS: Chloride 105 mmol/L (98-107); Potassium 4.2 mmoL/L (3.5-5.1); Sodium 136 mmol/L (136-145)
[2023-07-05 06:56] LABS: Alanine Aminotransferase 24 U/L (12-78); Albumin Level 2.3 g/dl (3.5-5.0); Albumin/Globulin Ratio 0.7 (1.1-1.8); Alkaline Phosphatase 135 U/L (38-126); Anion Gap 5.2 mEq/L (5-15); Aspartate Amino Transferase 24 U/L (14-36); Bilirubin,Total 0.2 mg/dl (0.2-1.3); Blood Urea Nitrogen 18 mg/dl (7-17); Calcium 8.2 mg/dl (8.4-10.2); Carbon Dioxide 30 mmol/L (22.0-30.0); Creatinine Clearance Estimated 78 mL/min (50-200); Estimated Glomerular Filt Rate 102 ml/min (>60); GFR (African American) 124 ML/MIN (>60); Globulin 3.5 g/dL (1.3-3.2); Glucose 159 mg/dl (74-100); Magnesium 2.1 mg/dl (1.6-2.3); Total Protein,Serum 5.8 g/dl (6.3-8.2)
[2023-07-05 07:48] LABS: Lymphocytes % 8 % (10-50); Monocytes % 2 % (2-9); Neutrophils % 90 % (42-76); Platelet Estimate Moderate Increase; RBC Morphology Normal; Total Cells Counted 100
--- NOTE | 2023-07-05 07:48 | HMH.PHAINT1 ---
Pharmacy Intervention Comments: Spoke with patient at bedside and verified not taking any prescription medications at home; of note, patient stated they have been taking Nyquil around the clock (Q4h) and IBU Q4-6h
[2023-07-05] MEDS: ENOXAPARIN 40MG/0.4ML SYRINGE 40 MG SQ (08:14)
[2023-07-05] MEDS: LACTATED RINGERS 1000ML 1,000 ML 125 ML IV (08:14)
--- NOTE | 2023-07-05 10:14 | P.CONS_ITS ---
History of Present Illness History of present illness: Ms. Zaldivar is a 57-year-old female with reported history of asthmatic bronchitis, tobacco abuse, presented to the ER with worsening respiratory distress along with cough and diarrhea and pulmonary was called for further evaluation and management. Patient admits history of flu 4 weeks ago managed as an outpatient basis. Admits improving symptoms and then symptoms started getting worse started by right-sided pleuritic chest pain followed by worsening shortness of breath along with cough and productive phlegm. [facility] Disclaimer: The information contained in this section may have been updated after the patient was seen, as this information can be updated by other users. Social History Smoking Status: Current every day smoker alcohol intake: never current occupational status: employed Travel in the last 8 weeks: None Review of Systems Constitutional Constitutional: Reports anorexia, Reports body ache(s) and Reports fatigue Eyes Eyes: Denies eye discharge, Denies dry eyes, Denies irritation and Denies itchy eyes ENT Ears, Nose, Mouth, and Throat: Denies epistaxis, Denies facial pain, Denies lip swelling, Reports nasal discharge and Denies throat swelling *Cardiovascular Cardiovascular: Reports dyspnea and Reports dyspnea on exertion *Respiratory Respiratory: Reports chest congestion, Reports cough, Reports dyspnea, Reports dyspnea on exertion, Reports excessive phlegm production, Denies hemoptysis, Reports pain on inspiration, Reports pain with cough and Denies wheezing *Gastrointestinal Gastrointestinal: Denies abdominal pain, Denies belching and Denies cramping *Musculoskeletal Musculoskeletal: Reports back pain, Reports myalgias and Reports other (No small joint swelling or Pain) Psychiatric Psychiatric: Denies homicidal ideation and Denies suicidal ideation Endocrine Endocrine: Reports fatigue and Denies heat intolerance Hematologic/Lymphatic Hematologic/Lymphatic: Denies easy bleeding and Denies lymphadenopathy Allergic/Immunologic Allergic/Immunologic: Denies itchy eyes, Denies lip swelling, Denies throat swelling and Denies wheezing Pulmonology Exam Inpatient Vital signs and Labs for Last 24 Hours: Temp Pulse Resp BP Pulse Ox O2 Del Method O2 Flow Rate 98.2 F 104 H 23 118/73 92 L Room Air 3 07/05/23 08:00 07/05/23 08:00 07/05/23 08:00 07/05/23 08:00 07/05/23 08:00 07/05/23 09:00 07/04/23 16:30 Laboratory Results - last 24 hr 07/04/23 16:16: WBC 27.9 H*, RBC 3.89 L, Hgb 11.6 L, Hct 35.9 L, MCV 92.5, MCH 29.8, MCHC 32.2, RDW 14.3, Plt Count 606 H, MPV 8.9, Neut % (Auto) 86.9 H, Lymph % (Auto) 7.4 L, [place] % (Auto) 4.7, Eos % (Auto) 0.6, Baso % (Auto) 0.4, Neut # (Auto) 24.3 H, Lymph # (Auto) 2.1, [place] # (Auto) 1.3 H, Eos # (Auto) 0.2, Baso # (Auto) 0.1, Total Counted 100, Neutrophils % (Manual) 79 H, Lymphocytes % (Manual) 18, Monocytes % (Manual) 3, Platelet Estimate Moderate increase, RBC Morphology Normal, PT 11.2, INR 1.04, D-Dimer 1.49 H, Sodium 140, Potassium 3.8, Chloride 105, Carbon Dioxide 31 H, Anion Gap 7.8, BUN 13, Creatinine 0.50 L, Estimated Creat Clear 94, Estimated GFR 126, Est GFR ( Amer) 153, Glucose 103 H, Lactate 1.4, Calcium 8.2 L, Total Bilirubin 0.2, AST 33, ALT 23, Alkaline Phosphatase 156 H, Troponin I < 0.01, Total Protein 6.3, Albumin 2.6 L, Globulin 3.7 H, Albumin/Globulin Ratio 0.7 L, Procalcitonin 0.394 07/04/23 16:30: Chlamy pneumoniae PCR TNP, Adenovirus (PCR) Not detected, B. pertussis DNA (PCR) TNP, Coronavirus OC43 (PCR) Not detected, Coronavirus HKU1 (PCR) Not detected, Coronavirus 229E (PCR) Not detected, SARS-CoV-2 (PCR) Not detected, Coronavirus NL63 (PCR) Not detected, Human Metapneumovir PCR Not detected, Influenza A (H1) PCR Not detected, Influ A (H1N1/09) PCR Not detected, Influenza A (H3) PCR Not detected, Influenza Type A (PCR) Not detected, Influenza Type B (PCR) Not detected, M. pneumoniae (PCR) TNP, Parainfluenza 1 (PCR) Not detected, Parainfluenza 2 (PCR) Not detected, Parainfluenza 3 (PCR) Not detected, Parainfluenza 4 (PCR) Not detected, RSV (PCR) Not detected, Entero/Rhino (PCR) Not detected 07/04/23 19:50: Troponin I < 0.01 07/04/23 22:27: Troponin I < 0.01 07/05/23 06:29: WBC 22.7 H*, RBC 3.76 L, Hgb 10.8 L, Hct 34.9 L, MCV 92.7, MCH 28.7, MCHC 31.0 L, RDW 14.2, Plt Count 565 H, MPV 9.2, Neut % (Auto) 93.4 H, Lymph % (Auto) 4.5 L, [place] % (Auto) 2.0, Eos % (Auto) 0.1, Baso % (Auto) 0.1, Neut # (Auto) 21.2 H, Lymph # (Auto) 1.0, [place] # (Auto) 0.4, Eos # (Auto) 0.0, Baso # (Auto) 0.0, Total Counted 100, Neutrophils % (Manual) 90 H, Lymphocytes % (Manual) 8 L, Monocytes % (Manual) 2, Platelet Estimate Moderate increase, RBC Morphology Normal, Sodium 136, Potassium 4.2, Chloride 105, Carbon Dioxide 30, Anion Gap 5.2, BUN 18 H D, Creatinine 0.60, Estimated Creat Clear 78, Estimated GFR 102, Est GFR ( Amer) 124, Glucose 159 H D, Calcium 8.2 L, Magnesium 2.1, Total Bilirubin 0.2, AST 24 D, ALT 24, Alkaline Phosphatase 135 H, Total Protein 5.8 L, Albumin 2.3 L D, Globulin 3.5 H, Albumin/Globulin Ratio 0.7 L I & O for Labs for Last 24 Hours: Intake & Output 07/02/23 07/03/23 07/04/23 07/05/23 23:59 23:59 23:59 23:59 Intake Total 1155 / 1155 Output Total 0 / 0 0 / 0 Balance 0 / 795 1155 / 1155 Weight 108 lb 108 lb 0.001 oz Constitutional: Present moderate distress Head: Present normocephalic and atraumatic ENT: Present normal exam, normal oropharynx and mucous membranes moist Neck: Present normal inspection and full ROM Respiratory: Present prolonged expiratory phase, respiratory distress, wheezes, diminished air movement and able to speak in complete sentences Cardiac: Present S1/S2, Tachycardia and radial pulses present GI: Present soft and distention; Absent tenderness or guarding Rectal (female): Present deferred (female): Present deferred Skin: Present intact; Absent cyanosis or jaundice Neuro: Present alert, awake and oriented x 3 Extremities: Present normal inspection; Absent clubbing or cyanosis Psychiatric: Present normal affect and cooperative Meds Home Medications and Allergies Home Medications Medication Instructions Recorded Confirmed Type No Known Home Medications 06/19/23 07/04/23 History New Prescriptions to Start Prescriptions: Allergies Allergy/AdvReac Type Severity Reaction Status Date / Time morphine Allergy Verified 06/19/23 15:08 Results Laboratory Findings 07/05/23 06:29 07/05/23 06:29 PT/INR, D-dimer PT 11.2 seconds (10.1-12.5) 07/04/23 16:16 INR 1.04 (0.9-1.1) 07/04/23 16:16 D-Dimer 1.49 ug/mL (0.0-0.5) H 07/04/23 16:16 Abnormal lab findings: Abnormal Labs 07/04/23 07/05/23 16:16 06:29 WBC 27.9 H* 22.7 H* RBC 3.89 L 3.76 L Hgb 11.6 L 10.8 L Hct 35.9 L 34.9 L MCHC 31.0 L Plt Count 606 H 565 H Neut % (Auto) 86.9 H 93.4 H Lymph % (Auto) 7.4 L 4.5 L Neut # (Auto) 24.3 H 21.2 H [place] # (Auto) 1.3 H Neutrophils % (Manual) 79 H 90 H Lymphocytes % (Manual) 8 L D-Dimer 1.49 H Carbon Dioxide 31 H BUN 18 H D Creatinine 0.50 L Glucose 103 H 159 H D Calcium 8.2 L 8.2 L Alkaline Phosphatase 156 H 135 H Total Protein 5.8 L Albumin 2.6 L 2.3 L D Globulin 3.7 H 3.5 H Albumin/Globulin Ratio 0.7 L 0.7 L Assessment and Plan *Assessment and plan (1) Acute hypoxemic respiratory failure: Status: Acute Category: Medical Code(s): J96.01 - Acute respiratory failure with hypoxia (2) Pleural effusion: Status: Acute Category: Medical Code(s): J90 - Pleural effusion, not elsewhere classified (3) Pneumonia: Status: Acute Category: Medical Code(s): J18.9 - Pneumonia, unspecified organism Plan Ms. Zaldivar is a 57-year-old female with reported history of asthmatic bronchitis, tobacco abuse, presented to the ER with worsening respiratory distress along with cough and diarrhea and pulmonary was called for further evaluation and management. Patient admits history of flu 4 weeks ago managed as an outpatient basis. Admits improving symptoms and then symptoms started getting worse started by right-sided pleuritic chest pain followed by worsening shortness of breath along with cough and productive phlegm. Significant neutrophilic leukocytosis upon admission. CTA upon admission no evidence of pulmonary embolism. Bilateral lower lobe primary patchy airspace disease, Rt > Lt, bronchial thickening along with small right parapneumonic effusion. On examination patient does not appear to be in any respiratory distress. On room air saturating 93%. No significant wheezing noted on auscultation. Plan -Continue current antibiotics including vancomycin and Zosyn -Sputum Gram stain and CHEIKH stain and culture -DuoNebs every 6 hours along with Pulmicort every 12 scheduled -Nasal MRSA PCR -Serum fungal serologies We will hold off on performing bronchoscopy at this point of time pending clinical improvement We will hold off on performing thoracentesis this point of time given smaller size of the noted effusion # Thank you for involving pulmonary in this patient care. Will continue to follow.
[2023-07-05] MEDS: CITALOPRAM 10MG TABLET 10 MG PO (11:27)
[2023-07-05] MEDS: VANCOMYCIN HCL 1,000 MG in 0.9 % SODIUM CHLORIDE 250 ML 125 MG IV (11:29)
[2023-07-05] MEDS: SODIUM CHLORIDE 3% 15ML NEB 3 ML IH (11:43)
--- NOTE | 2023-07-05 13:50 | EXP.ACUTE.PN ---
Subjective *Date: 07/05/23 *Time: 13:50 Interval history: Improving, afebrile. On room air this morning. Tolerating p.o. intake. Still with prominent cough that is productive. Showing slight improvement in white cell count. Pulmonology evaluating today. Medical Exam Vital signs and Labs for Last 24 Hours: Vital Signs Temp Pulse Pulse Resp BP BP Pulse Ox 07/05/23 12:00 98.3 F 107 H 22 115/68 90 L 07/05/23 11:43 80 18 07/05/23 11:43 76 07/05/23 11:43 76 07/05/23 11:00 07/05/23 09:00 07/05/23 08:00 07/05/23 08:00 98.2 F 104 H 23 118/73 92 L 07/05/23 06:27 88 07/05/23 06:27 90 07/05/23 05:00 07/05/23 03:00 07/05/23 04:00 98.5 F 84 18 127/71 92 L 07/05/23 00:00 98.1 F 96 H 16 111/68 92 L 07/05/23 06:43 07/05/23 01:00 07/04/23 23:00 07/04/23 21:00 07/04/23 20:00 07/04/23 23:27 87 07/04/23 20:00 98.3 F 81 16 115/68 92 L 07/04/23 19:00 07/04/23 18:59 07/04/23 18:15 98.0 F 90 18 125/90 07/04/23 18:01 98 H 125/70 94 L 07/04/23 17:30 97 H 16 109/68 L 98 07/04/23 17:12 97 H 16 134/69 100 07/04/23 16:30 101 H 18 120/69 92 L 07/04/23 16:16 114 H 18 129/88 92 L 07/04/23 15:58 97.9 F 116 H 20 129/88 89 L O2 Del Method O2 Flow Rate 07/05/23 12:00 Room Air 07/05/23 11:43 07/05/23 11:43 07/05/23 11:43 07/05/23 11:00 Room Air 07/05/23 09:00 Room Air 07/05/23 08:00 Room Air 07/05/23 08:00 Room Air 07/05/23 06:27 07/05/23 06:27 07/05/23 05:00 Room Air 07/05/23 03:00 Room Air 07/05/23 04:00 Room Air 07/05/23 00:00 Room Air 07/05/23 06:43 Room Air 07/05/23 01:00 Room Air 07/04/23 23:00 Room Air 07/04/23 21:00 Room Air 07/04/23 20:00 Room Air 07/04/23 23:27 07/04/23 20:00 Room Air 07/04/23 19:00 Room Air 07/04/23 18:59 Room Air 07/04/23 18:15 Room Air 07/04/23 18:01 Room Air 07/04/23 17:30 07/04/23 17:12 07/04/23 16:30 Nasal Cannula 3 07/04/23 16:16 Nasal Cannula 2 07/04/23 15:58 Room Air Intake and Output 07/04/23 07/05/23 07/05/23 23:59 07:59 15:59 Intake Total 795 / 1515 720 / 1515 Output Total 0 / 0 0 / 0 0 / 0 Balance 0 / 795 795 / 1515 720 / 1515 Intake: Intake, Oral Amount 120 / 840 720 / 840 Intake, Total IV Amount 675 / 675 Lactated Ringers 1000ML 1,000 625 / 625 ml @ 125 mls/hr IV .Q8H DAVID Rx# :[id number] Pipercillin/Tazo 3.375 gm In 0. 50 / 50 9 % Sodium Chloride 50 ml @ 100 mls/hr IV Q6H DAVID Rx#:[id number] Output: Output, Urine Amount 0 / 0 0 / 0 0 / 0 Other: Number of Voids 0 Number of Unmeasured Voids 1 1 Weight 48.988 kg Patient Weight 07/05/23 23:59 Weight 48.988 kg Laboratory Results - last 24 hr 07/04/23 16:16: WBC 27.9 H*, RBC 3.89 L, Hgb 11.6 L, Hct 35.9 L, MCV 92.5, MCH 29.8, MCHC 32.2, RDW 14.3, Plt Count 606 H, MPV 8.9, Neut % (Auto) 86.9 H, Lymph % (Auto) 7.4 L, [place] % (Auto) 4.7, Eos % (Auto) 0.6, Baso % (Auto) 0.4, Neut # (Auto) 24.3 H, Lymph # (Auto) 2.1, [place] # (Auto) 1.3 H, Eos # (Auto) 0.2, Baso # (Auto) 0.1, Total Counted 100, Neutrophils % (Manual) 79 H, Lymphocytes % (Manual) 18, Monocytes % (Manual) 3, Platelet Estimate Moderate increase, RBC Morphology Normal, PT 11.2, INR 1.04, D-Dimer 1.49 H, Sodium 140, Potassium 3.8, Chloride 105, Carbon Dioxide 31 H, Anion Gap 7.8, BUN 13, Creatinine 0.50 L, Estimated Creat Clear 94, Estimated GFR 126, Est GFR ( Amer) 153, Glucose 103 H, Lactate 1.4, Calcium 8.2 L, Total Bilirubin 0.2, AST 33, ALT 23, Alkaline Phosphatase 156 H, Troponin I < 0.01, Total Protein 6.3, Albumin 2.6 L, Globulin 3.7 H, Albumin/Globulin Ratio 0.7 L, Procalcitonin 0.394 07/04/23 16:30: Chlamy pneumoniae PCR TNP, Adenovirus (PCR) Not detected, B. pertussis DNA (PCR) TNP, Coronavirus OC43 (PCR) Not detected, Coronavirus HKU1 (PCR) Not detected, Coronavirus 229E (PCR) Not detected, SARS-CoV-2 (PCR) Not detected, Coronavirus NL63 (PCR) Not detected, Human Metapneumovir PCR Not detected, Influenza A (H1) PCR Not detected, Influ A (H1N1/09) PCR Not detected, Influenza A (H3) PCR Not detected, Influenza Type A (PCR) Not detected, Influenza Type B (PCR) Not detected, M. pneumoniae (PCR) TNP, Parainfluenza 1 (PCR) Not detected, Parainfluenza 2 (PCR) Not detected, Parainfluenza 3 (PCR) Not detected, Parainfluenza 4 (PCR) Not detected, RSV (PCR) Not detected, Entero/Rhino (PCR) Not detected 07/04/23 19:50: Troponin I < 0.01 07/04/23 22:27: Troponin I < 0.01 07/05/23 06:29: WBC 22.7 H*, RBC 3.76 L, Hgb 10.8 L, Hct 34.9 L, MCV 92.7, MCH 28.7, MCHC 31.0 L, RDW 14.2, Plt Count 565 H, MPV 9.2, Neut % (Auto) 93.4 H, Lymph % (Auto) 4.5 L, [place] % (Auto) 2.0, Eos % (Auto) 0.1, Baso % (Auto) 0.1, Neut # (Auto) 21.2 H, Lymph # (Auto) 1.0, [place] # (Auto) 0.4, Eos # (Auto) 0.0, Baso # (Auto) 0.0, Total Counted 100, Neutrophils % (Manual) 90 H, Lymphocytes % (Manual) 8 L, Monocytes % (Manual) 2, Platelet Estimate Moderate increase, RBC Morphology Normal, Sodium 136, Potassium 4.2, Chloride 105, Carbon Dioxide 30, Anion Gap 5.2, BUN 18 H D, Creatinine 0.60, Estimated Creat Clear 78, Estimated GFR 102, Est GFR ( Amer) 124, Glucose 159 H D, Calcium 8.2 L, Magnesium 2.1, Total Bilirubin 0.2, AST 24 D, ALT 24, Alkaline Phosphatase 135 H, Total Protein 5.8 L, Albumin 2.3 L D, Globulin 3.5 H, Albumin/Globulin Ratio 0.7 L I & O for Labs for Last 24 Hours: Intake & Output 07/02/23 07/03/23 07/04/23 07/05/23 23:59 23:59 23:59 23:59 Intake Total 1515 / 1515 Output Total 0 / 0 0 / 0 Balance 0 / 795 1515 / 1515 Weight 48.988 kg 48.988 kg Constitutional: Present no acute distress, thin and chronically ill appearing Head: Present atraumatic and normocephalic ENT: Present normal exam Neck: Present normal inspection Respiratory: Present rhonchi, wheezes, crackles and normal respiratory effort Cardiac: Present Reg Rate and Rhythm GI: Present normal bowel sounds; Absent tenderness Extremities: Present normal inspection and full ROM Skin: Present intact; Absent erythema Neuro: Present Grossly Intact, alert, awake, oriented x 3 and moves all extremities Assessment and Plan *Assessment and plan (1) Sepsis: Status: Acute Category: Medical Code(s): A41.9 - Sepsis, unspecified organism (2) Acute hypoxemic respiratory failure: Status: Acute Category: Medical Code(s): J96.01 - Acute respiratory failure with hypoxia (3) Multifocal pneumonia: Status: Acute Category: Medical Code(s): J18.9 - Pneumonia, unspecified organism (4) Pleural effusion: Status: Acute Category: Medical Code(s): J90 - Pleural effusion, not elsewhere classified (5) Tobacco use disorder: Status: Chronic Category: Medical Code(s): F17.200 - Nicotine dependence, unspecified, uncomplicated (6) Depression: Status: Acute Category: Medical Code(s): F32.A - Depression, unspecified Plan Ms. Longoria is a 57-year-old female with extensive smoking history. Reports having had flu about a month ago. Worsening cough and chest discomfort. On arrival found to be hypoxic with pneumonia and meeting sepsis criteria with leukocytosis and tachycardia. Discussed case with the ER provider, request admission for IV antibiotics, persistent pneumonia post flu, and workup with pulmonology. Medicine agreed to admit. Showing some improvement after initiating breathing treatments. Still has significant elevation in white count of 22,000, awaiting sputum cultures, pulmonology evaluating today, continues to require inpatient monitoring and treatment. Problems addressed as follows: Sepsis secondary to pneumonia with acute hypoxemic respiratory failure Suspected COPD -Meeting sepsis criteria with tachycardia, leukocytosis of 27,000, multifocal pneumonia on chest CT. Personally reviewed CT, shows pleural effusion on right side with dense patchy consolidations. -In light of recent flu, full respiratory panel obtained. Will continue broad-spectrum antibiotics due to risk for MRSA including vancomycin and Zosyn. Monitor for toxicity. -Discussed case with pulmonology, recommend MRSA swab of nose and await sputum culture. -Continue DuoNebs scheduled every 4 hours - Supplemental oxygen as needed, goal saturation greater than 90%. Currently on room air -White count 22, hemoglobin 10.8. Kidney function normal with creatinine of 0.6. - trelegy 100 inhaler -CBC, CMP, magnesium ordered for the morning. Tobacco use disorder: 21 mg nicotine patch as needed daily Depression: Patient has expressed history of thoughts of self-harm. Denies any plan. No active suicidal thoughts. Would like to talk with psychiatry. Feels she would benefit from close follow-up. Initiate Celexa 10 mg daily. Psych consult placed, they are to see patient in the morning. Full code Regular diet Lovenox 40 mg daily subcu
[2023-07-05] MEDS: NICOTINE 21MG/24HR PATCH 21 MG TD (17:31)
[2023-07-05] MEDS: BUDESONIDE 0.5MG/2ML NEB 0.5 MG IH (18:54)
[2023-07-05] MEDS: ALBUTEROL-HFA 90MCG/PUFF INHALER 8GM 2 PUFF IH (22:03)
[2023-07-05] MEDS: KETOROLAC 30MG/ML VIAL 15 MG IV (22:08)
[2023-07-06] VITALS (8 sets, daily range): BP systolic 110–149; BP diastolic 61–80; PULSE 80–106; RESP 16–21; TEMP 36.6–37.2; O2SAT 90–93; BMI 17.8
--- NOTE | 2023-07-06 04:15 | PC.NURSE ---
Pt is alert and oriented x4, and currently tolerating RA. Pt has c/o severe pain in her back and was treated per mar. Rhonchi remains scattered in bilateral lungs. pt has tolerated antibiotic therapy well. Pt has rested intermittently and denies other needs.
[2023-07-06] MEDS: LACTATED RINGERS 1000ML 1,000 ML 125 ML IV ×2 (05:10→18:28)
[2023-07-06] MEDS: PIPERCILLIN/TAZO 3.375 GM in 0.9 % SODIUM CHLORIDE 50 ML IV ×4 (05:10→23:02)
[2023-07-06] MEDS: IPRATROPIUM/ALBUTEROL 3 ML NEB IH (06:23)
[2023-07-06] MEDS: BUDESONIDE 0.5MG/2ML NEB 0.5 MG IH (06:23)
[2023-07-06] MEDS: VANCOMYCIN HCL 1,000 MG in 0.9 % SODIUM CHLORIDE 250 ML 125 MG IV (06:48)
[2023-07-06 07:41] LABS: MANUAL DIFFERENTIAL MANUAL DIFFERENTIAL (MANUAL DIFF)
[2023-07-06 07:49] LABS: Basophils % 0.2 % (0.1-2.0); Eosinophils # 0.1 K/mm3 (0.0-0.4); Eosinophils % 0.5 % (0.1-12.0); Hemoglobin 9.7 g/dL (12.2-16.2); Lymphocytes % 12.3 % (10-50); Mean Corpuscular HGB Conc 31.3 g/dL (31.8-35.4); Mean Corpuscular Hemoglobin 28.6 pg (27.0-31.2); Mean Corpuscular Volume 91.2 fl (81-99); Mean Platelet Volume 8.9 fl (7.4-10.4); Monocytes # 1.2 K/mm3 (0.1-1.0); Platelet Count 693 K/mm3 (142-424); Red Cell Distribution Width 14.3 % (11.5-17.5); White Blood Count 24.4 K/mm3 (4.8-10.8)
[2023-07-06 07:56] LABS: Chloride 105 mmol/L (98-107); Potassium 3.9 mmoL/L (3.5-5.1); Sodium 135 mmol/L (136-145)
[2023-07-06 07:59] LABS: Anion Gap 5.9 mEq/L (5-15); Blood Urea Nitrogen 15 mg/dl (7-17); Carbon Dioxide 28 mmol/L (22.0-30.0); Creatinine Clearance Estimated 65 mL/min (50-200); Estimated Glomerular Filt Rate 86 ml/min (>60); GFR (African American) 104 ML/MIN (>60)
[2023-07-06 08:00] LABS: Calcium 8.3 mg/dl (8.4-10.2); Glucose 88 mg/dl (74-100)
[2023-07-06 08:32] LABS: Eosinophils % 1 % (0-3); Lymphocytes % 12 % (10-50); Monocytes % 5 % (2-9); Neutrophils % 81 % (42-76); Nucleated Red Blood Cells 1; Platelet Estimate Moderate Increase; RBC Morphology Normal; Total Cells Counted 100
[2023-07-06] MEDS: ENOXAPARIN 30MG/0.3ML SYRINGE 30 MG SQ (08:39)
[2023-07-06] MEDS: CITALOPRAM 10MG TABLET 10 MG PO (08:39)
[2023-07-06] MEDS: ACETAMINOPHEN 325MG TAB 650 MG PO ×2 (08:39→20:22)
--- NOTE | 2023-07-06 08:56 | PC.NURSE ---
Current Medications Acetaminophen (Acetaminophen 325mg Tab) 650 mg PO Q4HP PRN PRN Reason: Fever or Mild Pain (1-3) Stop: 08/03/23 17:34 Last Admin: 07/06/23 08:39 Dose: 650 mg Albuterol Sulfate (Albuterol-Hfa 90mcg/Puff Inhaler 8gm) 2 puff IH Q4HP PRN PRN Reason: Shortness Of Breath Stop: 08/04/23 10:29 Last Admin: 07/05/23 22:03 Dose: 2 puff Albuterol/Ipratropium (Ipratropium/Albuterol 3 Ml Neb) 3 ml IH Q6RT [facility] Stop: 08/03/23 17:59 Last Admin: 07/06/23 06:23 Dose: 3 ml Budesonide (Budesonide 0.5mg/2ml Neb) 0.5 mg IH BIDRT [facility] Stop: 08/04/23 17:59 Last Admin: 07/06/23 06:23 Dose: 0.5 mg Citalopram Hydrobromide (Citalopram 10mg Tablet) 10 mg PO DAILY [facility] Stop: 08/04/23 10:29 Last Admin: 07/06/23 08:39 Dose: 10 mg Enoxaparin Sodium (Enoxaparin 30mg/0.3ml Syringe) 30 mg SQ DAILY [facility] Stop: 08/05/23 08:59 Last Admin: 07/06/23 08:39 Dose: 30 mg Piperacillin Sod/Tazobactam (Sod 3.375 gm/ Sodium Chloride) 50 mls @ 100 mls/hr IV Q6H [facility] Stop: 07/14/23 16:44 Last Admin: 07/06/23 05:10 Dose: 100 mls/hr Lactated Ringer's (Lactated Ringer's 1000 Ml Bag) 1,000 mls @ 125 mls/hr IV .Q8H [facility] Stop: 08/03/23 18:14 Last Admin: 07/06/23 05:10 Dose: 125 mls/hr Vancomycin HCl 1,000 mg/ (Sodium Chloride) 250 mls @ 125 mls/hr IV Q18H [facility] Stop: 07/15/23 12:29 Last Admin: 07/06/23 06:48 Dose: 125 mls/hr Miscellaneous (Aerochamber/Optihaler) 0 unit MC NEEDED PRN PRN Reason: for Use with Inhaler Stop: 08/04/23 10:29 Nicotine (Nicotine 21mg/24hr Patch) 21 mg TD DAILYP PRN PRN Reason: Nicotine Cravings Stop: 08/03/23 17:36 Last Admin: 07/05/23 17:31 Dose: 21 mg Sodium Chloride (Sodium Chloride 3% 15ml Neb) 3 ml IH ONCE PRN PRN Reason: INDUCE SPUTUM COLLECTION Stop: 08/03/23 17:36 Last Admin: 07/05/23 11:43 Dose: 3 ml Sodium Chloride (Sodium Chloride 0.9% 10ml Flush Syringe) 10 ml IV NEEDED PRN PRN Reason: Maintain IV Site Stop: 08/03/23 18:06
--- NOTE | 2023-07-06 11:13 | EXP.PULM.PN ---
Subjective *Date: 07/06/23 *Time: 11:13 Interval history: No acute respiratory events overnight. Patient admits continued improvement in her symptoms but continued to complain of pleuritic pain, improving. Pulmonology Exam Inpatient Vital signs and Labs for Last 24 Hours: Temp Pulse Resp BP Pulse Ox O2 Del Method O2 Flow Rate 98.4 F 104 H 20 149/72 H 93 L Room Air 3 07/06/23 07:58 07/06/23 07:58 07/06/23 07:58 07/06/23 07:58 07/06/23 07:58 07/06/23 09:10 07/04/23 16:30 Laboratory Results - last 24 hr 07/06/23 07:03: WBC 24.4 H*, RBC 3.40 L, Hgb 9.7 L, Hct 31.0 L, MCV 91.2, MCH 28.6, MCHC 31.3 L, RDW 14.3, Plt Count 693 H, MPV 8.9, Neut % (Auto) 82.0 H, Lymph % (Auto) 12.3, [place] % (Auto) 5.0, Eos % (Auto) 0.5, Baso % (Auto) 0.2, Neut # (Auto) 20.0 H, Lymph # (Auto) 3.0, [place] # (Auto) 1.2 H, Eos # (Auto) 0.1, Baso # (Auto) 0.0, Total Counted 100, Neutrophils % (Manual) 81 H, Lymphocytes % (Manual) 12, Atypical Lymphs % 1.0, Monocytes % (Manual) 5, Eosinophils % (Manual) 1, Nucleated RBCs 1, Platelet Estimate Moderate increase, RBC Morphology Normal, Sodium 135 L, Potassium 3.9, Chloride 105, Carbon Dioxide 28, Anion Gap 5.9, BUN 15, Creatinine 0.70, Estimated Creat Clear 65, Estimated GFR 86, Est GFR ( Amer) 104, Glucose 88, Calcium 8.3 L I & O for Labs for Last 24 Hours: Intake & Output 07/03/23 07/04/23 07/05/23 07/06/23 23:59 23:59 23:59 23:59 Intake Total 2820 / 2820 235 / 235 Output Total 0 / 0 0 / 0 0 / 0 Balance 0 / 795 2820 / 2820 235 / 235 Weight 108 lb 108 lb 0.001 oz 104 lb 4.8 oz Microbiology Reports for the Last 24 Hours: Microbiology 07/05/23 11:20 Sputum - Expectorated Sputum CHEIKH Preparation - Final Constitutional: Present moderate distress Head: Present normocephalic and atraumatic ENT: Present normal exam, normal oropharynx and mucous membranes moist Neck: Present normal inspection and full ROM Respiratory: Present respiratory distress and able to speak in complete sentences; Absent prolonged expiratory phase or wheezes Cardiac: Present S1/S2, Tachycardia and radial pulses present GI: Present soft and distention; Absent tenderness or guarding Rectal (female): Present deferred (female): Present deferred Skin: Present intact; Absent cyanosis or jaundice Neuro: Present alert, awake and oriented x 3 Extremities: Present normal inspection; Absent clubbing or cyanosis Psychiatric: Present normal affect and cooperative Assessment and Plan *Assessment and plan (1) Acute hypoxemic respiratory failure: Status: Acute Category: Medical Code(s): J96.01 - Acute respiratory failure with hypoxia (2) Pleural effusion: Status: Acute Category: Medical Code(s): J90 - Pleural effusion, not elsewhere classified (3) Pneumonia: Status: Acute Category: Medical Code(s): J18.9 - Pneumonia, unspecified organism Plan Ms. Zaldivar is a 57-year-old female with reported history of asthmatic bronchitis, tobacco abuse, presented to the ER with worsening respiratory distress along with cough and diarrhea and pulmonary was called for further evaluation and management. Patient admits history of flu 4 weeks ago managed as an outpatient basis. Admits improving symptoms and then symptoms started getting worse started by right-sided pleuritic chest pain followed by worsening shortness of breath along with cough and productive phlegm. Significant neutrophilic leukocytosis upon admission. CTA upon admission no evidence of pulmonary embolism. Bilateral lower lobe primary patchy airspace disease, Rt > Lt, bronchial thickening along with small right parapneumonic effusion. On examination patient does not appear to be in any respiratory distress. On room air saturating 93%. No significant wheezing noted on auscultation. Interval update: No significant respiratory events overnight. Continued to remain on room air. Continued to complain of pleuritic chest pain though improving. Leukocytosis relatively stable/improving still at 24.4 this morning. Afebrile. Sputum cultures and nasal MRSA PCR pending. CHEIKH negative for fungal elements. Given clinical send the plan was made to discharge the patient on Bactrim and levofloxacin for a total of 10 days. Plan -Initiate Advair 250 over DuoNebs every 6 hours on as-needed basis -Wean antibiotics to Bactrim DS twice daily and levofloxacin for a total of 10 days. -Follow the patient in pulmonary clinic in 5 days -Follow with final sputum cultures and nasal MRSA PCR. -Follow-up with serum fungal serologies We will hold off on performing bronchoscopy at this point of time pending clinical improvement We will hold off on performing thoracentesis this point of time given smaller size of the noted effusion # Thank you for involving pulmonary in this patient care. Will follow the patient in pulmonary clinic in 5 days with a chest x-ray PA lateral prior to clinic visit
--- NOTE | 2023-07-06 16:29 | PC.NURSE ---
A&OX4. PT HAS TOLERATED RA WELL THROUGHOUT SHIFT. RESPIRATIONS REGULAR AND UNLABORED. INSPIRATORY AND EXPIRATORY RHONCHI SCATTERED THROUGHOUT. NO COUGH NOTED. HEART RATE REGULAR. +2 PULSES NOTED THROUGHOUT. NO EDEMA NOTED. DENIES ANY PAIN OR SOB THUS FAR. ACTIVE BOWEL SOUNDS HEARD THROUGHOUT. SOFT AND NONTENDER ABDOMEN. PT HAS REPORTED HAVING A BM THIS SHIFT. PT RECEIVED A SHOWER THIS SHIFT AND LINEN CHANGE. [employer] TEACHER EQUAL. PT RECEIVED ZOSYN TWICE THIS SHIFT AND TOLERATED WELL. PT HAS BEEN EMOTIONAL AT TIMES TODAY CRYING JUST WORRIED BECAUSE SHE FEELS SHE ISN'T GETTING BETTER AND THINGS ARE ONLY GETTING WORSE. NURSE REASSURED PT AND ADRIENNE ROWE OFFICE WAS NOTIFIED TO SEE IF SHE WOULD BE COMING TO SEE THE PT TODAY. THEY STATED THEY WERE AWARE OF THE CONSULT BUT HER SCHEDULE WAS FULL THIS AFTERNOON SO; SHE PROBABLY WOULDN'T BE ABLE TO SEE HER UNTIL TOMORROW. PT REPORTED PAIN ONCE AND RECEIVED TYLENOL PER JUL. ON REASSESSMENT, PT STATED PAIN WAS GONE. NO QUESTIONS OR CONCERNS VOICED. BED IN LOWEST POSITION. CALL LIGHT WITHIN REACH. VSS.
[2023-07-06] MEDS: FLUTICASONE/SALMETEROL 250/50MCG DISKUS 1 PUFF IH (17:32)
[2023-07-06] MEDS: NICOTINE 21MG/24HR PATCH 21 MG TD (18:28)
[2023-07-06 23:58] LABS: Vancomycin,Trough 5.9 ug/mL (5.0-10.0)
[2023-07-07] VITALS: BP 96/51; PULSE 106; RESP 18; TEMP 37.7; O2SAT 90
[2023-07-07] MEDS: VANCOMYCIN HCL 1,000 MG in 0.9 % SODIUM CHLORIDE 250 ML 125 MG IV (00:11)
[2023-07-07] MEDS: LACTATED RINGERS 1000ML 1,000 ML 125 ML IV (03:38)
[2023-07-07] MEDS: ACETAMINOPHEN 325MG TAB 650 MG PO ×2 (03:41→09:34)
[2023-07-07] MEDS: PIPERCILLIN/TAZO 3.375 GM in 0.9 % SODIUM CHLORIDE 50 ML IV ×2 (03:50→11:28)
[2023-07-07 04:00] VITALS: BP 94/63; PULSE 90; RESP 18; TEMP 37; O2SAT 92; BMI 17.8
[2023-07-07] MEDS: ALBUTEROL-HFA 90MCG/PUFF INHALER 8GM 2 PUFF IH (04:01)
[2023-07-07 05:10] LABS: MANUAL DIFFERENTIAL MANUAL DIFFERENTIAL (MANUAL DIFF)
[2023-07-07 05:15] LABS: Basophils # 0.1 K/mm3 (0-0.2); Basophils % 0.3 % (0.1-2.0); Eosinophils # 0.3 K/mm3 (0.0-0.4); Eosinophils % 1.3 % (0.1-12.0); Hematocrit 29.5 % (37.0-47.0); Hemoglobin 9.3 g/dL (12.2-16.2); Lymphocytes # 2.6 K/mm3 (0.7-4.5); Lymphocytes % 14.4 % (10-50); Mean Corpuscular HGB Conc 31.5 g/dL (31.8-35.4); Mean Corpuscular Hemoglobin 28.4 pg (27.0-31.2); Mean Corpuscular Volume 90.2 fl (81-99); Mean Platelet Volume 8.5 fl (7.4-10.4); Monocytes # 1.1 K/mm3 (0.1-1.0); Monocytes % 6.1 % (1.7-9.3); Neutrophils # 14.3 K/mm3 (1.8-7.8); Neutrophils % 77.9 % (37.0-80.0); Platelet Count 679 K/mm3 (142-424); Red Blood Count 3.27 M/mm3 (4.20-5.40); Red Cell Distribution Width 14.6 % (11.5-17.5); White Blood Count 18.3 K/mm3 (4.8-10.8)
[2023-07-07 05:17] LABS: Chloride 105 mmol/L (98-107); Potassium 3.9 mmoL/L (3.5-5.1); Sodium 134 mmol/L (136-145)
[2023-07-07 05:20] LABS: Blood Urea Nitrogen 14 mg/dl (7-17); Creatinine Clearance Estimated 65 mL/min (50-200); Estimated Glomerular Filt Rate 86 ml/min (>60); GFR (African American) 104 ML/MIN (>60)
[2023-07-07 05:21] LABS: Anion Gap 4.9 mEq/L (5-15); Calcium 8.2 mg/dl (8.4-10.2); Carbon Dioxide 28 mmol/L (22.0-30.0); Glucose 100 mg/dl (74-100)
[2023-07-07 05:25] LABS: Vancomycin,Peak 17.5 ug/ml (11-39)
[2023-07-07 06:00] LABS: Eosinophils % 2 % (0-3); Lymphocytes % 16 % (10-50); Monocytes % 5 % (2-9); Neutrophils % 77 % (42-76); Platelet Estimate Moderate Increase; RBC Morphology Normal; Total Cells Counted 100
[2023-07-07] MEDS: FLUTICASONE/SALMETEROL 250/50MCG DISKUS 1 PUFF IH (06:34)
--- NOTE | 2023-07-07 07:50 | EXP.PN ---
Subjective *Date: 07/06/23 *Time: 07:50 Interval history: patient is seen at bedside, complains of SOB and wheezing, otherwise no complains of Chest pain, N/V, fevers Exam Data for Last 24 hours Vital signs and Labs for Last 24 Hours: Temp Pulse Resp BP Pulse Ox O2 Del Method O2 Flow Rate 98.6 F 90 18 94/63 L 92 L Room Air 3 07/07/23 04:00 07/07/23 04:00 07/07/23 04:00 07/07/23 04:00 07/07/23 04:00 07/07/23 05:00 07/04/23 16:30 Laboratory Results - last 24 hr 07/06/23 07:03: WBC 24.4 H*, RBC 3.40 L, Hgb 9.7 L, Hct 31.0 L, MCV 91.2, MCH 28.6, MCHC 31.3 L, RDW 14.3, Plt Count 693 H, MPV 8.9, Neut % (Auto) 82.0 H, Lymph % (Auto) 12.3, [place] % (Auto) 5.0, Eos % (Auto) 0.5, Baso % (Auto) 0.2, Neut # (Auto) 20.0 H, Lymph # (Auto) 3.0, [place] # (Auto) 1.2 H, Eos # (Auto) 0.1, Baso # (Auto) 0.0, Total Counted 100, Neutrophils % (Manual) 81 H, Lymphocytes % (Manual) 12, Atypical Lymphs % 1.0, Monocytes % (Manual) 5, Eosinophils % (Manual) 1, Nucleated RBCs 1, Platelet Estimate Moderate increase, RBC Morphology Normal, Sodium 135 L, Potassium 3.9, Chloride 105, Carbon Dioxide 28, Anion Gap 5.9, BUN 15, Creatinine 0.70, Estimated Creat Clear 65, Estimated GFR 86, Est GFR ( Amer) 104, Glucose 88, Calcium 8.3 L 07/06/23 23:27: Vancomycin Trough 5.9 07/07/23 04:37: WBC 18.3 H, RBC 3.27 L, Hgb 9.3 L, Hct 29.5 L, MCV 90.2, MCH 28.4, MCHC 31.5 L, RDW 14.6, Plt Count 679 H, MPV 8.5, Neut % (Auto) 77.9, Lymph % (Auto) 14.4, [place] % (Auto) 6.1, Eos % (Auto) 1.3, Baso % (Auto) 0.3, Neut # (Auto) 14.3 H, Lymph # (Auto) 2.6, [place] # (Auto) 1.1 H, Eos # (Auto) 0.3, Baso # (Auto) 0.1, Total Counted 100, Neutrophils % (Manual) 77 H, Lymphocytes % (Manual) 16, Monocytes % (Manual) 5, Eosinophils % (Manual) 2, Platelet Estimate Moderate increase, RBC Morphology Normal, Sodium 134 L, Potassium 3.9, Chloride 105, Carbon Dioxide 28, Anion Gap 4.9 L, BUN 14, Creatinine 0.70, Estimated Creat Clear 65, Estimated GFR 86, Est GFR ( Amer) 104, Glucose 100, Calcium 8.2 L, Vancomycin Peak 17.5 I & O for Last 24 hours: Intake & Output 07/04/23 07/05/23 07/06/23 07/07/23 23:59 23:59 23:59 23:59 Intake Total 2820 / 2820 1845 / 2880 1035 / 1035 Output Total 0 / 0 0 / 0 3 / 3 0 / 0 Balance 0 / 795 2820 / 2820 1842 / 2877 1035 / 1035 Weight 48.988 kg 48.988 kg 47.31 kg 47.34 kg Microbiology Reports for the Last 24 Hours: Microbiology 07/05/23 08:21 Sputum - Expectorated Sputum Gram Stain - Final 07/05/23 12:00 Nose MRSA Culture - Final Constitutional Constitutional: no acute distress *Routine HEENT Exam Head: Present normocephalic Eye: Present EOMI and PERRL ENT: Present mucous membranes moist *Routine Neck Exam Neck: Present supple; Absent lymphadenopathy *Routine Respiratory Exam Respiratory: Present prolonged expiratory phase and wheezes *Routine Cardiovascular Exam Cardiovascular: Present RRR *Routine Abdominal Exam Abdominal: Present soft and normoactive bowel sounds; Absent tenderness *Routine Extremities Exam Extremities: Absent cyanosis, clubbing or edema *Routine Skin Exam Skin: Present warm; Absent rash *Routine Neurological Exam Neurological: Present alert and oriented X3 Assessment and Plan *Assessment and plan (1) Sepsis: Status: Acute Category: Medical Code(s): A41.9 - Sepsis, unspecified organism (2) Acute hypoxemic respiratory failure: Status: Acute Category: Medical Code(s): J96.01 - Acute respiratory failure with hypoxia (3) Multifocal pneumonia: Status: Acute Category: Medical Code(s): J18.9 - Pneumonia, unspecified organism (4) Pleural effusion: Status: Acute Category: Medical Code(s): J90 - Pleural effusion, not elsewhere classified (5) Tobacco use disorder: Status: Chronic Category: Medical Code(s): F17.200 - Nicotine dependence, unspecified, uncomplicated (6) Depression: Status: Acute Category: Medical Code(s): F32.A - Depression, unspecified Plan Ms. Longoria is a 57-year-old female with extensive smoking history. Reports having had flu about a month ago. Worsening cough and chest discomfort. On arrival found to be hypoxic with pneumonia and meeting sepsis criteria with leukocytosis and tachycardia. Discussed case with the ER provider, request admission for IV antibiotics, persistent pneumonia post flu, and workup with pulmonology. Medicine agreed to admit. Showing some improvement after initiating breathing treatments. Still has significant elevation in white count of 22,000, awaiting sputum cultures, pulmonology evaluating today, continues to require inpatient monitoring and treatment. Problems addressed as follows: Sepsis secondary to pneumonia with acute hypoxemic respiratory failure COPD exacerbation -Meeting sepsis criteria with tachycardia, leukocytosis of 27,000, multifocal pneumonia on chest CT. Personally reviewed CT, shows pleural effusion on right side with dense patchy consolidations. -In light of recent flu, full respiratory panel obtained. Will continue broad-spectrum antibiotics due to risk for MRSA including vancomycin and Zosyn. Monitor for toxicity. -Discussed case with pulmonology, recommend MRSA swab of nose and await sputum culture. -Continue DuoNebs scheduled every 4 hours - Supplemental oxygen as needed, goal saturation greater than 90%. Currently on room air Tobacco use disorder: 21 mg nicotine patch as needed daily Depression: Patient has expressed history of thoughts of self-harm. Denies any plan. No active suicidal thoughts. Would like to talk with psychiatry. Feels she would benefit from close follow-up. Initiate Celexa 10 mg daily. Psych consult placed, they are to see patient in the morning. Full code Regular diet Lovenox 40 mg daily subcu continue current treatment, likely DC tomorrow
[2023-07-07 08:00] VITALS: BP 105/62; PULSE 98; RESP 22; TEMP 36.6; O2SAT 94
--- NOTE | 2023-07-07 08:13 | P.PN_ITS ---
Subjective *Date: 07/07/23 *Time: 08:13 Medical Exam Vital signs and Labs for Last 24 Hours: Vital Signs Temp Pulse Resp BP Pulse Ox O2 Del Method 07/07/23 05:00 Room Air 07/07/23 03:00 Room Air 07/07/23 01:00 Room Air 07/06/23 23:00 Room Air 07/06/23 21:00 Room Air 07/07/23 04:00 98.6 F 90 18 94/63 L 92 L Room Air 07/07/23 00:00 99.8 F H 106 H 18 96/51 L 90 L Room Air 07/06/23 20:00 98.5 F 103 H 18 134/72 92 L 07/06/23 18:32 Room Air 07/06/23 17:02 Room Air 07/06/23 15:09 Room Air 07/06/23 15:11 98.1 F 95 H 18 110/71 90 L Room Air 07/06/23 13:07 Room Air 07/06/23 12:00 98.1 F 95 H 21 131/71 91 L Room Air 07/06/23 11:10 Room Air 07/06/23 09:10 Room Air Intake and Output 07/06/23 07/07/23 07/07/23 23:59 07:59 15:59 Intake Total 1200 / 2880 1035 / 1035 Output Total 0 / 3 0 / 0 Balance 1200 / 2877 1035 / 1035 Intake: Intake, Oral Amount 270 / 1275 360 / 360 Intake, Total IV Amount 930 / 1605 675 / 675 Lactated Ringers 1000ML 1,000 830 / 1455 625 / 625 ml @ 125 mls/hr IV .Q8H DAVID Rx# :[id number] Pipercillin/Tazo 3.375 gm In 0. 100 / 150 50 / 50 9 % Sodium Chloride 50 ml @ 100 mls/hr IV Q6H DAVID Rx#:[id number] Output: Output, Urine Amount 0 / 3 0 / 0 Other: Number of Voids 3 Number of Unmeasured Voids 2 1 Weight 47.34 kg Patient Weight 07/07/23 23:59 Weight 47.34 kg Laboratory Results - last 24 hr 07/06/23 07:03: Total Counted 100, Neutrophils % (Manual) 81 H, Lymphocytes % (Manual) 12, Atypical Lymphs % 1.0, Monocytes % (Manual) 5, Eosinophils % (Manual) 1, Nucleated RBCs 1, Platelet Estimate Moderate increase, RBC Morphology Normal 07/06/23 23:27: Vancomycin Trough 5.9 07/07/23 04:37: WBC 18.3 H, RBC 3.27 L, Hgb 9.3 L, Hct 29.5 L, MCV 90.2, MCH 28.4, MCHC 31.5 L, RDW 14.6, Plt Count 679 H, MPV 8.5, Neut % (Auto) 77.9, Lymph % (Auto) 14.4, [place] % (Auto) 6.1, Eos % (Auto) 1.3, Baso % (Auto) 0.3, Neut # (Auto) 14.3 H, Lymph # (Auto) 2.6, [place] # (Auto) 1.1 H, Eos # (Auto) 0.3, Baso # (Auto) 0.1, Total Counted 100, Neutrophils % (Manual) 77 H, Lymphocytes % (Manual) 16, Monocytes % (Manual) 5, Eosinophils % (Manual) 2, Platelet Estimate Moderate increase, RBC Morphology Normal, Sodium 134 L, Potassium 3.9, Chloride 105, Carbon Dioxide 28, Anion Gap 4.9 L, BUN 14, Creatinine 0.70, Estimated Creat Clear 65, Estimated GFR 86, Est GFR ( Amer) 104, Glucose 100, Calcium 8.2 L, Vancomycin Peak 17.5 I & O for Labs for Last 24 Hours: Intake & Output 07/04/23 07/05/23 07/06/23 07/07/23 23:59 23:59 23:59 23:59 Intake Total 2820 / 2820 1845 / 2880 1035 / 1035 Output Total 0 / 0 0 / 0 3 / 3 0 / 0 Balance 0 / 795 2820 / 2820 1842 / 2877 1035 / 1035 Weight 48.988 kg 48.988 kg 47.31 kg 47.34 kg Microbiology Reports for the Last 24 Hours: Microbiology 07/05/23 08:21 Sputum - Expectorated Sputum Gram Stain - Final 07/05/23 12:00 Nose MRSA Culture - Final The patient's infection will respond to the chosen ABx?: Yes (BLOOD AND SPUTUM CULTURE PENDING, WHITE COUNT 18.4 AND IMPROVING.) Is the patient receiving the right drug, dose, and route?: Yes Could a more targeted ABx be ordered?: No
--- NOTE | 2023-07-07 08:27 | EXP.PHA.CONS ---
Pharmacy Consult Date: 07/07/23 Time: 08:27 Referring provider: DR. BLANK Reason for Consult:: VANCOMYCIN DOSE ADJUSTMENT Allergies Allergy/AdvReac Type Severity Reaction Status Date / Time morphine Allergy Verified 06/19/23 15:08 Home Medications Medication Instructions Recorded Confirmed Type No Known Home Medications 06/19/23 07/04/23 History New Prescriptions to Start Prescriptions: Height: 1.63 m Weight: 47.34 kg Laboratory Results:: Laboratory Results - last 24 hr 07/06/23 07:03: Total Counted 100, Neutrophils % (Manual) 81 H, Lymphocytes % (Manual) 12, Atypical Lymphs % 1.0, Monocytes % (Manual) 5, Eosinophils % (Manual) 1, Nucleated RBCs 1, Platelet Estimate Moderate increase, RBC Morphology Normal 07/06/23 23:27: Vancomycin Trough 5.9 07/07/23 04:37: WBC 18.3 H, RBC 3.27 L, Hgb 9.3 L, Hct 29.5 L, MCV 90.2, MCH 28.4, MCHC 31.5 L, RDW 14.6, Plt Count 679 H, MPV 8.5, Neut % (Auto) 77.9, Lymph % (Auto) 14.4, [place] % (Auto) 6.1, Eos % (Auto) 1.3, Baso % (Auto) 0.3, Neut # (Auto) 14.3 H, Lymph # (Auto) 2.6, [place] # (Auto) 1.1 H, Eos # (Auto) 0.3, Baso # (Auto) 0.1, Total Counted 100, Neutrophils % (Manual) 77 H, Lymphocytes % (Manual) 16, Monocytes % (Manual) 5, Eosinophils % (Manual) 2, Platelet Estimate Moderate increase, RBC Morphology Normal, Sodium 134 L, Potassium 3.9, Chloride 105, Carbon Dioxide 28, Anion Gap 4.9 L, BUN 14, Creatinine 0.70, Estimated Creat Clear 65, Estimated GFR 86, Est GFR ( Amer) 104, Glucose 100, Calcium 8.2 L, Vancomycin Peak 17.5 Assessment and Plan Assessment and plan all Dx Assessment and Plan for all problems:: BASED ON PATIENT FACTORS AND VANCOMYCIN TROUGH LEVEL OF 17.5 AND 5.9, RECOMMEND SLIGHTLY INCREASING VANCOMYCIN DOSE TO 1,250MG IV EVERY 18 HOURS. PHARMACY WILL CONTINUE TO MONITOR. -MILLI GUNTER PHARMD
--- NOTE | 2023-07-07 09:00 | XR_ITS ---
FINAL REPORT CLINICAL HISTORY: pnm, shortness of breath COMPARISON: 07/04/2023 FINDINGS: A portable view of the chest was obtained. Cardiac and mediastinal silhouettes are within normal limits. There has been interval worsening of patchy bilateral slightly nodular right greater than left opacities. Pleural effusions have increased in size from prior. There is no pneumothorax. . IMPRESSION: Interval worsening right greater than left nodular opacities with increased pleural effusions. Reviewed, Interpreted and Dictated by Jennifer Mancilla MD Transcribed by Leesa Santana Authenticated and [facility]
[2023-07-07] MEDS: CITALOPRAM 10MG TABLET 10 MG PO (09:26)
[2023-07-07] MEDS: ENOXAPARIN 40MG/0.4ML SYRINGE 40 MG SQ (09:32)
--- NOTE | 2023-07-07 09:57 | EXP.PULM.PN ---
Subjective *Date: 07/07/23 *Time: 11:08 Interval history: No acute respiratory events overnight. Admits continued improvement in her respiratory status. Pulmonology Exam Inpatient Vital signs and Labs for Last 24 Hours: Temp Pulse Resp BP Pulse Ox O2 Del Method O2 Flow Rate 98 F 98 H 22 105/62 L 94 L Room Air 3 07/07/23 08:00 07/07/23 08:00 07/07/23 08:00 07/07/23 08:00 07/07/23 08:00 07/07/23 09:00 07/04/23 16:30 Laboratory Results - last 24 hr 07/06/23 23:27: Vancomycin Trough 5.9 07/07/23 04:37: WBC 18.3 H, RBC 3.27 L, Hgb 9.3 L, Hct 29.5 L, MCV 90.2, MCH 28.4, MCHC 31.5 L, RDW 14.6, Plt Count 679 H, MPV 8.5, Neut % (Auto) 77.9, Lymph % (Auto) 14.4, [place] % (Auto) 6.1, Eos % (Auto) 1.3, Baso % (Auto) 0.3, Neut # (Auto) 14.3 H, Lymph # (Auto) 2.6, [place] # (Auto) 1.1 H, Eos # (Auto) 0.3, Baso # (Auto) 0.1, Total Counted 100, Neutrophils % (Manual) 77 H, Lymphocytes % (Manual) 16, Monocytes % (Manual) 5, Eosinophils % (Manual) 2, Platelet Estimate Moderate increase, RBC Morphology Normal, Sodium 134 L, Potassium 3.9, Chloride 105, Carbon Dioxide 28, Anion Gap 4.9 L, BUN 14, Creatinine 0.70, Estimated Creat Clear 65, Estimated GFR 86, Est GFR ( Amer) 104, Glucose 100, Calcium 8.2 L, Vancomycin Peak 17.5 I & O for Labs for Last 24 Hours: Intake & Output 07/04/23 07/05/23 07/06/23 07/07/23 23:59 23:59 23:59 23:59 Intake Total 2820 / 2820 1845 / 2880 1455 / 1455 Output Total 0 / 0 0 / 0 3 / 3 0 / 0 Balance 0 / 795 2820 / 2820 1842 / 2877 1455 / 1455 Weight 108 lb 108 lb 0.001 oz 104 lb 4.811 oz 104 lb 5.869 oz Microbiology Reports for the Last 24 Hours: Microbiology 07/05/23 08:21 Sputum - Expectorated Sputum Gram Stain - Final 07/05/23 12:00 Nose MRSA Culture - Final Constitutional: Present moderate distress Head: Present normocephalic and atraumatic ENT: Present normal exam, normal oropharynx and mucous membranes moist Neck: Present normal inspection and full ROM Respiratory: Present respiratory distress and able to speak in complete sentences; Absent prolonged expiratory phase or wheezes Cardiac: Present S1/S2, Tachycardia and radial pulses present GI: Present soft and distention; Absent tenderness or guarding Rectal (female): Present deferred (female): Present deferred Skin: Present intact; Absent cyanosis or jaundice Neuro: Present alert, awake and oriented x 3 Extremities: Present normal inspection; Absent clubbing or cyanosis Psychiatric: Present normal affect and cooperative Assessment and Plan *Assessment and plan (1) Acute hypoxemic respiratory failure: Status: Acute Category: Medical Code(s): J96.01 - Acute respiratory failure with hypoxia (2) Pleural effusion: Status: Acute Category: Medical Code(s): J90 - Pleural effusion, not elsewhere classified (3) Pneumonia: Status: Acute Category: Medical Code(s): J18.9 - Pneumonia, unspecified organism Plan Ms. Zaldivar is a 57-year-old female with reported history of asthmatic bronchitis, tobacco abuse, presented to the ER with worsening respiratory distress along with cough and diarrhea and pulmonary was called for further evaluation and management. Patient admits history of flu 4 weeks ago managed as an outpatient basis. Admits improving symptoms and then symptoms started getting worse started by right-sided pleuritic chest pain followed by worsening shortness of breath along with cough and productive phlegm. Significant neutrophilic leukocytosis upon admission. CTA upon admission no evidence of pulmonary embolism. Bilateral lower lobe primary patchy airspace disease, Rt > Lt, bronchial thickening along with small right parapneumonic effusion. On examination patient does not appear to be in any respiratory distress. On room air saturating 93%. No significant wheezing noted on auscultation. Interval update: No significant respiratory events overnight. Continued to remain on room air. Continued to complain of pleuritic chest pain though improving. Leukocytosis relatively stable/improving still at 24.4 this morning. Afebrile. Sputum culture rare gram-negative rods. Nasal MRSA PCR negative CHEIKH negative for fungal elements. Plan -Initiate Advair 250 over DuoNebs every 6 hours on as-needed basis - Bactrim DS twice daily and levofloxacin for a total of 10 days starting today. She has received vancomycin and Zosyn starting 07/05/2023. -Follow the patient in pulmonary clinic in 5 days -Follow-up with serum fungal serologies We will hold off on performing bronchoscopy at this point of time pending clinical improvement We will hold off on performing thoracentesis this point of time given smaller size of the noted effusion # Thank you for involving pulmonary in this patient care. Will follow the patient in pulmonary clinic in 5 days with a chest x-ray PA lateral prior to clinic visit
--- NOTE | 2023-07-07 11:08 | EXP.DC.SUM ---
General Admission date:: 07/04/23 Discharge date: 07/07/23 HPI HPI HPI: Ms. Longoria is a 57-year-old female with no significant past medical history. Smokes 1 to 2 packs a day. 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 States that a month ago she had flu and is just not gotten better since. Over the past week has developed worsening cough, diarrhea, pain in the right side of her back. Chills and subjective fevers but no juan fever. Denies any nausea or vomiting or precordial chest pain. On workup in the ER, she was found to be tachycardic, with new oxygen requirement. Leukocytosis of 27,000. Chest imaging obtained showing diffuse bilateral multifocal pneumonia with pleural effusion (suspected parapneumonic). Requiring oxygen in the ER. Initiated on antibiotics with vancomycin and Zosyn and treated with DuoNebs. Medicine consulted for admission and further management. On arrival to the floor, patient is feeling little bit better. Is currently satting 90 to 92% on room air. Reports she is never been diagnosed with COPD but is smoked 1 to 2 packs a day for over 50 years. Hospital Course Hospital Course Hospital Course: Patient was seen and evaluated at the bedside on the day of discharge. Patient wishes to be discharged. All patient questions were answered and patient was given time to ask questions. Patient was discharged in stable condition. Patient understands that she can return to ER in case of any sudden changes in health. Total time spent on DC - 38 mins Ms. Longoria is a 57-year-old female with extensive smoking history. Reports having had flu about a month ago. Worsening cough and chest discomfort. On arrival found to be hypoxic with pneumonia and meeting sepsis criteria with leukocytosis and tachycardia. Discussed case with the ER provider, request admission for IV antibiotics, persistent pneumonia post flu, and workup with pulmonology. Medicine agreed to admit. Showing some improvement after initiating breathing treatments. Still has significant elevation in white count of 22,000, awaiting sputum cultures, pulmonology evaluating today, continues to require inpatient monitoring and treatment. Problems addressed as follows: Sepsis secondary to pneumonia with acute hypoxemic respiratory failure - improved COPD exacerbation - improved DC on oral bactrim and Levofloxacin Tobacco use disorder: 21 mg nicotine patch as needed daily Depression: Patient has expressed history of thoughts of self-harm. Denies any plan. No active suicidal thoughts. Would like to talk with psychiatry. Feels she would benefit from close follow-up. Initiate Celexa 10 mg daily. Psych consult placed, they are to see patient in the morning. Full code Regular diet Lovenox 40 mg daily subcu Exam Data for Last 24 hours Vital signs and Labs for Last 24 Hours: Temp Pulse Resp BP Pulse Ox O2 Del Method O2 Flow Rate 98 F 98 H 22 105/62 L 94 L Room Air 3 07/07/23 08:00 07/07/23 08:00 07/07/23 08:00 07/07/23 08:00 07/07/23 08:00 07/07/23 10:51 07/04/23 16:30 Laboratory Results - last 24 hr 07/06/23 23:27: Vancomycin Trough 5.9 07/07/23 04:37: WBC 18.3 H, RBC 3.27 L, Hgb 9.3 L, Hct 29.5 L, MCV 90.2, MCH 28.4, MCHC 31.5 L, RDW 14.6, Plt Count 679 H, MPV 8.5, Neut % (Auto) 77.9, Lymph % (Auto) 14.4, [place] % (Auto) 6.1, Eos % (Auto) 1.3, Baso % (Auto) 0.3, Neut # (Auto) 14.3 H, Lymph # (Auto) 2.6, [place] # (Auto) 1.1 H, Eos # (Auto) 0.3, Baso # (Auto) 0.1, Total Counted 100, Neutrophils % (Manual) 77 H, Lymphocytes % (Manual) 16, Monocytes % (Manual) 5, Eosinophils % (Manual) 2, Platelet Estimate Moderate increase, RBC Morphology Normal, Sodium 134 L, Potassium 3.9, Chloride 105, Carbon Dioxide 28, Anion Gap 4.9 L, BUN 14, Creatinine 0.70, Estimated Creat Clear 65, Estimated GFR 86, Est GFR ( Amer) 104, Glucose 100, Calcium 8.2 L, Vancomycin Peak 17.5 I & O for Last 24 hours: Intake & Output 07/04/23 07/05/23 07/06/23 07/07/23 23:59 23:59 23:59 23:59 Intake Total 2820 / 2820 1845 / 2880 1455 / 1455 Output Total 0 / 0 0 / 0 3 / 3 0 / 0 Balance 0 / 795 2820 / 2820 1842 / 2877 1455 / 1455 Weight 48.988 kg 48.988 kg 47.31 kg 47.34 kg Microbiology Reports for the Last 24 Hours: Microbiology 07/05/23 08:21 Sputum - Expectorated Sputum Gram Stain - Final 07/05/23 12:00 Nose MRSA Culture - Final Constitutional Constitutional: no acute distress *Routine HEENT Exam Head: Present normocephalic Eye: Present EOMI and PERRL ENT: Present mucous membranes moist *Routine Neck Exam Neck: Present supple; Absent lymphadenopathy *Routine Respiratory Exam Respiratory: Present CTA bilaterally *Routine Cardiovascular Exam Cardiovascular: Present RRR *Routine Abdominal Exam Abdominal: Present soft and normoactive bowel sounds; Absent tenderness *Routine Extremities Exam Extremities: Absent cyanosis, clubbing or edema *Routine Skin Exam Skin: Present warm; Absent rash *Routine Neurological Exam Neurological: Present alert and oriented X3 Results Data Completed and Pending Labs on day of discharge: Labs from last 24 hours 07/07/23 07/06/23 04:37 23:27 WBC 18.3 H RBC 3.27 L Hgb 9.3 L Hct 29.5 L MCV 90.2 MCH 28.4 MCHC 31.5 L RDW 14.6 Plt Count 679 H MPV 8.5 Neut % (Auto) 77.9 Lymph % (Auto) 14.4 [place] % (Auto) 6.1 Eos % (Auto) 1.3 Baso % (Auto) 0.3 Neut # (Auto) 14.3 H Lymph # (Auto) 2.6 [place] # (Auto) 1.1 H Eos # (Auto) 0.3 Baso # (Auto) 0.1 Total Counted 100 Neutrophils % (Manual) 77 H Lymphocytes % (Manual) 16 Monocytes % (Manual) 5 Eosinophils % (Manual) 2 Platelet Estimate Moderate increase RBC Morphology Normal Sodium 134 L Potassium 3.9 Chloride 105 Carbon Dioxide 28 Anion Gap 4.9 L BUN 14 Creatinine 0.70 Estimated Creat Clear 65 Estimated GFR 86 Est GFR ( Amer) 104 Glucose 100 Calcium 8.2 L Vancomycin Peak 17.5 Vancomycin Trough 5.9 DS: Diagnosis Discharge Diagnosis (1) Acute hypoxemic respiratory failure: Status: Acute Code(s): J96.01 - Acute respiratory failure with hypoxia (2) Pleural effusion: Status: Acute Code(s): J90 - Pleural effusion, not elsewhere classified (3) Pneumonia: Status: Acute Code(s): J18.9 - Pneumonia, unspecified organism Meds Home Medications and Allergies Home Medications Medication Instructions Recorded Confirmed Type fluticasone 250 mcg-salmeterol 50 1 inh inhalation BIDRT 30 days #60 07/07/23 Rx mcg/dose blistr powdr for ea inhalation (Advair Diskus) levofloxacin 500 mg tablet 500 mg PO Q24H 10 days #10 tabs 07/07/23 Rx nicotine 21 mg/24 hr daily 21 mg transdermal DAILYP PRN 07/07/23 Rx transdermal patch Nicotine Cravings 30 days #30 ea sulfamethoxazole 800 1 tab PO BID #20 tabs 07/07/23 Rx mg-trimethoprim 160 mg tablet (Bactrim DS) New Prescriptions to Start Prescriptions: fluticasone propion-salmeterol [Advair Diskus] Jakob,Irfan levofloxacin Jakob,Irfan nicotine Jakob,Irfan sulfamethoxazole-trimethoprim [Bactrim DS] Jakob,Irfan Allergies Allergy/AdvReac Type Severity Reaction Status Date / Time morphine Allergy Verified 06/19/23 15:08 Discharge Plan Disposition Patient Disposition: Home, Self-Care Condition: Good Follow up Plan Follow up with: Phuong Sexton MD [Physician] - 1 week Prescriptions/Medication Reconciliation: New fluticasone propion-salmeterol [Advair Diskus] 250-50 mcg/dose Blister With Device 1 inh inhalation BIDRT 30 Days Qty: 60 0RF nicotine 21 mg/24 hr Patch 24 Hour 21 mg transdermal DAILYP PRN (Reason: Nicotine Cravings) 30 Days Qty: 30 0RF sulfamethoxazole-trimethoprim [Bactrim DS] 800-160 mg tablet 1 tab PO BID Qty: 20 0RF levofloxacin 500 mg tablet 500 mg PO Q24H 10 Days Qty: 10 0RF Other Ambulatory Orders: XR chest 2V (Routine) Timeframe: 1 Week Facility: [facility] - Location: Radiology Ordered By: Phuong Sexton Problem Reconciliation Problems Reviewed?: Yes Patient Discharge Instructions ACTIVITY: Ambulate as tolerated DIET: continue same diet Patient Instructions: Pneumonia-Adult, DI for Sepsis -- Adult Providers Primary Care Provider: Provider,Referral Admit Provider: Popeye Kennedy Attending Provider: Popeye Kennedy
--- NOTE | 2023-07-08 13:25 | CARE MANAGER ---
Called and spoke with patient regarding recent discharge. Patient was aware of her scheduled f/u appts and was able to get all new medication with the exception of the inhaler. She believes her inhalor should be in today at her pharmacy, but stated that she is doing ok today without it. No concerns voiced at time of call.
[2023-07-10 18:22] LABS: Aspergillus flavus Negative (Neg:<1:1); Aspergillus fumigatus Negative (Neg:<1:1); Aspergillus niger Negative (Neg:<1:1); Blastomyces Antibody Negative (Neg:<1:1)
== END 2023-07-07 12:30 | disposition home or self-care (01) ==
LOC: ER 16:07 → 2ND 19:07
PROVIDERS: Internal Medicine Pulmonary Disease; Physician Assistant; Admitting Provider Internal Medicine Adolescent Medicine; Emergency Provider Emergency Medicine; Visit Provider Internal Medicine Adolescent Medicine
DX: J96.01 Acute respiratory failure with hypoxia (principal); F17.210 Nicotine dependence, cigarettes, uncomplicated; J18.9 Pneumonia, unspecified organism; J90 Pleural effusion, not elsewhere classified; J44.1 Chronic obstructive pulmonary disease with (acute) exacerbation
CPT/HCPCS: 36415; 71045; 71275; 80048; 80053; 80202; 83605; 83735; 84145; 84484; 85007; 85014; 85018; 85025; 85048; 85049; 85378; 85610; 86606; 86612; 87040; 87070; 87081; 87205; 87220; 87632; 87635; 93005; 94640; 99285; G0378; J0131; J2543; J3370; Q9967

== ENCOUNTER 2023-07-22 21:17 | Outpatient (CLI) | payer SELFPAY | END 2023-07-22 23:59 | LOC: LAB.DROPOF 21:17 | PROVIDERS: PCP Family Medicine; Visit Provider Family Medicine | DX: R31.9 Hematuria, unspecified (principal); C67.9 Malignant neoplasm of bladder, unspecified | CPT/HCPCS: 87086 ==

== ENCOUNTER 2023-07-26 19:30 | Outpatient (CLI) | payer SELFPAY ==
[2023-07-26 19:05] LABS: Adenovirus F 40/41, stool Not Detected (NotDetected); Astrovirus Not Detected (NotDetected); Campylobacter Not Detected (NotDetected); Cryptosporidium Not Detected (NotDetected); Cyclospora Cayetanesis Not Detected (NotDetected); Entamoeba histolytica Not Detected (NotDetected); Enteroaggregative E coli Not Detected (NotDetected); Enteropathogenic E coli Not Detected (NotDetected); Enterotoxigenic E coli Not Detected (NotDetected); Norovirus Not Detected (NotDetected); Plesimonas Shigalloides, PCR Not Detected (NotDetected); Rotavirus A Not Detected (NotDetected); Salmonella, PCR Not Detected (NotDetected); Sapovirus Not Detected (NotDetected); Shiga-like toxin E coli Not Detected (NotDetected); Shigella Enterovasive E coli Not Detected (NotDetected); Vibrio Cholerae Not Detected (NotDetected); Vibrio, PCR Not Detected (NotDetected); Yersinia Entercolitica, PCR Not Detected (NotDetected)
[2023-07-29 09:46] LABS: Clostridium Difficile A/B, PCR Detected (NotDetected); Giardia lamblia Detected (NotDetected)
== END 2023-07-26 23:59 ==
LOC: LAB.DROPOF 19:31
PROVIDERS: PCP Family Medicine; Visit Provider Family Medicine
DX: A04.72 Enterocolitis due to Clostridium difficile, not specified as recurrent (principal); R19.7 Diarrhea, unspecified
CPT/HCPCS: 87507

== ENCOUNTER 2023-09-16 12:43 | Outpatient (CLI) | payer SELFPAY | END 2023-09-16 23:59 | disposition home or self-care (01) | LOC: LAB.DROPOF 09-17 12:54 | PROVIDERS: PCP Family Medicine; Visit Provider Family Medicine | DX: R30.0 Dysuria (principal); B96.29 Other Escherichia coli [E. coli] as the cause of diseases classified elsewhere | CPT/HCPCS: 87086; 87088; 87186 ==

== ENCOUNTER 2023-12-09 13:19 | Outpatient (CLI) | payer SELFPAY | END 2023-12-09 23:59 | disposition home or self-care (01) | LOC: LAB.DROPOF 12-10 08:19 | PROVIDERS: PCP Nurse Practitioner; Visit Provider Nurse Practitioner | DX: R30.0 Dysuria (principal) | CPT/HCPCS: 87086; 87088; 87186 ==

== ENCOUNTER 2024-02-03 13:56 | Outpatient (CLI) | payer SELFPAY | END 2024-02-03 23:59 | disposition home or self-care (01) | LOC: LAB.DROPOF 02-04 15:03 | PROVIDERS: PCP Family Medicine; Visit Provider Family Medicine | DX: N30.90 Cystitis, unspecified without hematuria (principal) | CPT/HCPCS: 87086; 87088; 87186 ==

== ENCOUNTER 2024-02-14 08:03 | Outpatient (CLI) | payer SELFPAY ==
[2024-02-14] MEDS: ERTAPENEM SODIUM 1 GM VIAL IM (08:27)
[2024-02-14 08:28] VITALS: BP 134/86; PULSE 61; RESP 18; TEMP 36.9; O2SAT 98
== END 2024-02-14 08:55 | disposition home or self-care (01) ==
LOC: INF 08:06
PROVIDERS: PCP Family Medicine; Visit Provider Family Medicine
DX: N39.0 Urinary tract infection, site not specified (principal)
CPT/HCPCS: 96372; J1335

== ENCOUNTER 2024-02-15 08:08 | Outpatient (CLI) | payer SELFPAY ==
[2024-02-15 08:25] VITALS: BP 125/69; PULSE 65; RESP 18; TEMP 36.4; O2SAT 98
[2024-02-15] MEDS: ERTAPENEM SODIUM 1 GM VIAL IM (08:25)
== END 2024-02-15 08:45 | disposition home or self-care (01) ==
LOC: INF 08:09
PROVIDERS: PCP Family Medicine; Visit Provider Family Medicine
DX: N39.0 Urinary tract infection, site not specified (principal)
CPT/HCPCS: 96372; J1335

== ENCOUNTER 2024-02-16 10:59 | Outpatient (CLI) | payer SELFPAY ==
[2024-02-16] MEDS: ERTAPENEM SODIUM 1 GM VIAL IM (11:44)
[2024-02-16 11:45] VITALS: BP 107/56; PULSE 72; RESP 16; TEMP 35.9; O2SAT 99
== END 2024-02-16 12:00 | disposition home or self-care (01) ==
LOC: INF 11:00
PROVIDERS: PCP Family Medicine; Visit Provider Family Medicine
DX: N39.0 Urinary tract infection, site not specified (principal)
CPT/HCPCS: 96372; J1335

== ENCOUNTER 2024-02-17 11:21 | Outpatient (CLI) | payer SELFPAY ==
[2024-02-17 11:48] VITALS: BP 100/64; PULSE 64; RESP 16; TEMP 36.7; O2SAT 99
[2024-02-17] MEDS: ERTAPENEM SODIUM 1 GM VIAL IM (11:48)
== END 2024-02-17 11:55 | disposition home or self-care (01) ==
LOC: INF 11:21
PROVIDERS: PCP Family Medicine; Visit Provider Family Medicine
DX: N39.0 Urinary tract infection, site not specified (principal)
CPT/HCPCS: 96372; J1335

== ENCOUNTER 2024-02-18 11:33 | Outpatient (CLI) | payer SELFPAY ==
[2024-02-18] MEDS: ERTAPENEM SODIUM 1 GM VIAL IM (11:50)
[2024-02-18 11:56] VITALS: BP 117/61; PULSE 65; RESP 16; O2SAT 96
== END 2024-02-18 11:56 | disposition home or self-care (01) ==
LOC: INF 11:33
PROVIDERS: PCP Family Medicine; Visit Provider Family Medicine
DX: N39.0 Urinary tract infection, site not specified (principal)
CPT/HCPCS: 96372; J1335

== ENCOUNTER 2024-02-19 10:28 | Outpatient (CLI) | payer SELFPAY ==
[2024-02-19] MEDS: ERTAPENEM SODIUM 1 GM VIAL IM (10:53)
== END 2024-02-19 10:54 | disposition home or self-care (01) ==
LOC: INF 10:28
PROVIDERS: PCP Family Medicine; Visit Provider Family Medicine
DX: N39.0 Urinary tract infection, site not specified (principal)
CPT/HCPCS: G0463; J1335

== ENCOUNTER 2024-02-20 12:08 | Outpatient (CLI) | payer SELFPAY ==
[2024-02-20] MEDS: ERTAPENEM SODIUM 1 GM VIAL IM (12:27)
== END 2024-02-20 23:59 | disposition home or self-care (01) ==
LOC: INF 12:08
PROVIDERS: PCP Family Medicine; Visit Provider Family Medicine
DX: N39.0 Urinary tract infection, site not specified (principal)
CPT/HCPCS: J1335

== ENCOUNTER 2024-02-21 10:50 | Outpatient (CLI) | payer SELFPAY ==
[2024-02-21 11:13] VITALS: BP 119/82; PULSE 67; RESP 16; TEMP 36.6; O2SAT 99
[2024-02-21] MEDS: ERTAPENEM SODIUM 1 GM VIAL IM (11:13)
== END 2024-02-21 11:30 | disposition home or self-care (01) ==
LOC: INF 10:51
PROVIDERS: PCP Family Medicine; Visit Provider Family Medicine
DX: N39.0 Urinary tract infection, site not specified (principal)
CPT/HCPCS: 96372; J1335

== ENCOUNTER 2024-02-22 11:10 | Outpatient (CLI) | payer SELFPAY ==
[2024-02-22 11:28] VITALS: BMI 22.3
[2024-02-22 11:32] VITALS: BP 119/64; RESP 18; TEMP 36.3; O2SAT 99
[2024-02-22] MEDS: ERTAPENEM SODIUM 1 GM VIAL IM (11:39)
[2024-02-22 11:44] VITALS: BP 119/64; RESP 18; TEMP 36.3; O2SAT 99
== END 2024-02-22 11:46 | disposition home or self-care (01) ==
LOC: INF 11:10
PROVIDERS: PCP Family Medicine; Visit Provider Family Medicine
DX: N39.0 Urinary tract infection, site not specified (principal)
CPT/HCPCS: 96372; J1335

== ENCOUNTER 2024-02-23 11:26 | Outpatient (CLI) | payer SELFPAY ==
[2024-02-23] MEDS: ERTAPENEM SODIUM 1 GM VIAL IM (11:49)
[2024-02-23 11:54] VITALS: BP 122/65; PULSE 65; RESP 18; O2SAT 96
== END 2024-02-23 11:54 | disposition home or self-care (01) ==
LOC: INF 11:26
PROVIDERS: PCP Family Medicine; Visit Provider Family Medicine
DX: N39.0 Urinary tract infection, site not specified (principal)
CPT/HCPCS: 96372; J1335

== ENCOUNTER 2024-03-20 08:34 | Emergency (ER) | payer SELFPAY ==
[2024-03-20] VITALS (9 sets, daily range): BP systolic 105–164; BP diastolic 60–84; PULSE 61–78; RESP 18; TEMP 36.6–36.7; O2SAT 95–100; BMI 22.3
--- NOTE | 2024-03-20 09:20 | PC.NURSE ---
attempted to place a mayer cath, unable to at this time, consulted concern for blockage of urethra.
--- NOTE | 2024-03-20 09:22 | PC.NURSE ---
DR SMITH AT BEDSIDE
--- NOTE | 2024-03-20 09:26 | CT_ITS ---
FINAL REPORT CLINICAL HISTORY: obstructive uropathy, tissue in urethra COMPARISON: None FINDINGS: CT OF THE ABDOMEN AND PELVIS WITH CONTRAST Axial CT images of the abdomen and pelvis were obtained after the administration of IV contrast. Coronal and sagittal reformatted images were also obtained and reviewed. This study was performed with techniques to keep radiation doses as low as reasonably achievable (ALARA). Individualized dose reduction techniques using automated exposure control or adjustment of mA and/or kV according to the patient's size were employed. Abdomen: There are numerous small nodules in the lung bases, greater on the right than on the left, likely inflammatory. This may represent mycobacterial or fungal infection. The heart is normal in size. There are several less than 1 cm in size hepatic cysts present. The spleen demonstrates nonspecific splenic masses measuring up to 8 mm in size. No adrenal mass is present. The pancreas has an unremarkable appearance. The kidneys are normal, without evidence of mass or hydronephrosis. The aorta is normal in caliber. There is no free fluid or adenopathy. No mass or abnormal fluid collection is seen. Pelvis: The appendix partially visualized and appears unremarkable. The urinary bladder demonstrates marked bladder wall thickening, with either a bladder mass or clot at the base of the bladder. There is mild surrounding stranding, and several borderline in size lymph nodes adjacent to the bladder. This may represent an inflammatory process or neoplasm. There is no evidence of bowel obstruction. IMPRESSION: Marked bladder wall thickening, with mass or clot present in the base of the bladder. There is mild surrounding stranding and several borderline in size lymph nodes adjacent to the bladder. This may represent an inflammatory process or neoplasm. Numerous small nodules are present in the lung bases, greater on the right, likely inflammatory and may represent fungal or mycobacterial infection. Nonspecific splenic masses up to 8 mm in size, likely inflammatory. If clinically indicated a follow-up CT in 6 months could be performed to reevaluate. Reviewed, Interpreted and Dictated by Stanley Stephen III, MD Transcribed by Delphine Savage Authenticated and [facility]
--- NOTE | 2024-03-20 09:29 | HMH.EDGENADL ---
Discharge Plan Disposition Patient Disposition: Home, Self-Care Prescriptions Prescriptions: New levofloxacin 750 mg tablet 750 mg PO DAILY 7 Days Qty: 7 0RF Referrals Follow up/Referrals: South Swift MD [Primary Care Provider] - See instructions Activity Restrictions/Add. Instructions Additional Instructions/Restrictions: At this time it was felt you are safe to be discharged home. If new or worsening symptoms please do not hesitate to return the emergency department. Please follow-up with Dr. Davidson's clinic this Wednesday morning at 9 AM as you likely have recurrent bladder cancer. Please take your antibiotics as prescribed. Clinical Impressions Clinical Impression: Mass of bladder, UTI (urinary tract infection) Instructions Patient Instructions: DI for Urinary Tract Infection (UTI) Print Language Print Language: Cape Verdean Discharge ED Provider: Fausto Jones General Adult HPI General Chief complaint: Urogenital-Female Stated complaint: bladder pain, unable to urinate Time Seen by Provider: 03/20/24 09:12 Mode of Arrival: Ambulatory Source of Information: Patient Limitations: No Limitations Description of Symptoms (Recalled from ER Triage Doc. by RN): PT C/O PAINFUL URINATION, UNABLE TO VOID. HX OF BLADDER CANCER History of Present Illness HPI narrative: Patient is a 58-year-old female with past medical history of previous bladder cancer in her 20s managed in [place] surgically and with adjuvant treatment with no ongoing treatment who presents emergency department for evaluation of difficulty voiding and lower abdominal pain. Patient has had microscopic hematuria for 5 years , over the last few months she has began passing blood in her urine with intermittent clots however not very significant clots and not often. Over the last 48 hours she has had extreme difficulty voiding when she bears down only a little bit comes out causing her to become concerned and come here for continued evaluation. She does not have insurance and does not have routine medical care. Related Data Previous Rx's ?Medication ?Instructions ?Recorded levofloxacin 750 mg tablet 750 mg PO DAILY UTI 7 days #7 tabs 03/20/24 Allergies Allergy/AdvReac Type Severity Reaction Status Date / Time morphine Allergy Other Verified 02/15/24 08:44 [facility] Disclaimer: The information contained in this section may have been updated after the patient was seen, as this information can be updated by other users. Medical History (Updated 03/20/24 @ 12:34 by Fausto Jones MD) Bladder infection Under or uninsured Substance abuse Alcoholism Anxiety Bladder cancer Depression Surgical History Hx of tonsillectomy History of mandibular surgery Hx of hysterectomy Family History Other Bleeding disorder Cancer Coronary artery disease Diabetes Hypertension Social History (Updated 02/23/24 @ 11:43 by Mayra Cannon RN) Smoking Status: Former smoker tobacco type: cigarettes smoking status stop date: 2 weeks ago alcohol intake: current alcohol intake frequency: holidays/special occasions only substance use type: former substance user current occupational status: employed Travel in the last 8 weeks: None Other Medical History Have you received the Flu Vaccine for this season: No Have you received the Pneumonia Vaccine: No ROS Obtained: Yes Systems reviewed as appropriate & no additional complaints except as documented Physical Exam General General appearance: alert and in no apparent distress Head Head exam: atraumatic and normocephalic Eye Eye exam: Present PERRL and EOMI ENT ENT exam: Present mucous membranes moist Neck Neck exam: Present normal inspection Chest Chest inspection: Present normal inspection and symmetric chest wall rise Respiratory Respiratory exam: Present normal lung sounds bilaterally; Absent respiratory distress Cardiovascular Cardiovascular exam: Present regular rate and normal rhythm Abdominal Exam Abdominal exam: Present soft, distention and tenderness (Mild, suprapubic) Bimanual exam: Present other (Transmission And Protection Engineer present, purple friable tissue versus clot at the end of the urethra that is not able to be dislodged with light pressure) Extremities Exam Extremities exam: Present normal inspection Neurological Exam Neurological exam: Present alert Psychiatric Psychiatric exam: Present normal affect Skin Skin exam: Present warm and dry Medical Decision Making Medical Records Screening: Per USPSTF and CDC recommendations, given the prevalence of disease in our region, it is our hospital?s policy to screen for HIV and viral Hepatitis for all patients aged 18 and over and those with ongoing risk factors. Barry Inquiry Pt receiving controlled substance: No Vital Signs: 03/20/24 08:36 03/20/24 09:52 03/20/24 10:00 Temperature 97.8 F Temperature Source Oral Pulse Rate 62 78 Pulse Rate [Radial] 72 Respiratory Rate 18 Blood Pressure 145/77 H 164/84 H Blood Pressure [Left Arm] 163/74 H Blood Pressure Mean 110 Blood Pressure Mean [Left Arm] 103 Blood Pressure Source [Left Arm] Automatic Cuff Blood Pressure Position [Left Arm] Sitting 02 Sat by Pulse Oximetry 98 99 100 Oxygen Delivery Method Room Air Room Air Room Air 03/20/24 10:31 03/20/24 11:00 03/20/24 11:31 Temperature Temperature Source Pulse Rate 65 62 67 Pulse Rate [Radial] Respiratory Rate Blood Pressure 134/74 144/76 H 105/62 L Blood Pressure [Left Arm] Blood Pressure Mean 82 Blood Pressure Mean [Left Arm] Blood Pressure Source [Left Arm] Blood Pressure Position [Left Arm] 02 Sat by Pulse Oximetry 96 100 96 Oxygen Delivery Method Room Air Room Air Room Air Lab Data Lab Results 03/20/24 08:53: WBC 11.9 H, RBC 5.15, Hgb 14.5, Hct 46.0, MCV 89.3, MCH 28.2, MCHC 31.5 L, RDW 14.0, Plt Count 248, MPV 9.4, Neut % (Auto) 77.2, Lymph % (Auto) 14.2, [place] % (Auto) 4.9, Eos % (Auto) 2.9, Baso % (Auto) 0.8, Neut # (Auto) 9.2 H, Lymph # (Auto) 1.7, [place] # (Auto) 0.6, Eos # (Auto) 0.3, Baso # (Auto) 0.1, Sodium 139, Potassium 4.1, Chloride 108 H, Carbon Dioxide 23, Anion Gap 12.1, BUN 19 H, Creatinine 0.80, Estimated Creat Clear 70, Estimated GFR 73, Est GFR ( Amer) 89, Glucose 93, Calcium 9.1, Total Bilirubin 0.6, AST 28, ALT 21, Alkaline Phosphatase 73, Total Protein 6.7, Albumin 4.3, Globulin 2.4, Albumin/Globulin Ratio 1.8, HIV 1&2 Antibody Rapid Nonreactive 03/20/24 09:50: Urine Color Yellow, Urine Appearance Sl cloudy, Urine pH 6.0, Ur Specific [place] <= 1.005, Urine Protein 2+ A, Urine Glucose (UA) Negative, Urine Ketones Negative, Urine Blood 3+ A, Urine Nitrate Negative, Urine Bilirubin Negative, Urine Urobilinogen 0.2, Ur Leukocyte Esterase 1+ A, Urine RBC 20-50, Urine WBC 5-10, Ur Squamous Epith Cells None, Ur Transition Epith Cell Occ, Urine Bacteria Trace 03/20/24 08:53 03/20/24 08:53 Orders (Tests/Meds): ED MEDICATIONS Generic Name Dose Route Start Last Admin Trade Name Frezulma PRN Reason Stop Dose Admin Sodium Chloride 10 ml 03/20/24 10:14 03/20/24 10:15 Sodium Chloride 0.9% 10ml Syr (Rad Only) IV 04/19/24 10:13 10 ml NEEDED PRN Administration Maintain IV Site Discontinued Medications Generic Name Dose Route Start Last Admin Trade Name Freq PRN Reason Stop Dose Admin Acetaminophen 1,000 mg 03/20/24 09:28 03/20/24 09:59 Acetaminophen 1,000mg/100ml Vial IV 03/20/24 09:29 1,000 mg ONCE ONE Administration Fentanyl Citrate 50 mcg 03/20/24 09:28 Fentanyl 100mcg/2ml Vial IV 03/20/24 09:29 ONCE ONE Iopamidol 75 ml 03/20/24 10:14 03/20/24 10:15 Iopamidol-370 (76%);100ml Bottle IV 03/20/24 10:15 75 ml ONCE ONE Administration Ondansetron HCl 4 mg 03/20/24 09:28 03/20/24 09:59 Ondansetron 4mg/2ml Vial IV 03/20/24 09:29 4 mg ONCE ONE Administration ORDERS Category Date Time Status CT abdomen pelvis w con Stat Cat Scan 03/20/24 09:26 Completed CBC w/Auto Diff [Complete Blood Count Auto Diff] Stat Lab 03/20/24 08:53 Completed CMP [Comprehensive Metabolic Panel] Stat Lab 03/20/24 08:53 Completed HIV (1&2) Antibody Rapid Stat Lab 03/20/24 08:53 Completed Hep C Ab with Reflex to RNA Stat Lab 03/20/24 08:53 Received UA [Urinalysis and Microscopic] Stat Lab 03/20/24 09:50 Completed Urine Culture Stat Micro 03/20/24 09:50 Received Medical Decision Narrative: In summary patient is a 58-year-old female past medical history described above who presents emergency department for evaluation of difficulty voiding and low abdominal pain. Patient is hemodynamically stable nontoxic-appearing upon arrival, in pain, afebrile. Given friable tissue at the end of the urethra the ability to pass the catheter was questioned and I discussed the case with Dr. Davidson who graciously agreed to come evaluate the patient at bedside. He thinks catheter passage is safe and advanced the catheter himself with return of urine. Workup will be conducted with hematologic labs, urinalysis, CT abdomen pelvis with IV contrast. Initial inventions include IV Tylenol. Work reviewed by me, hematologic labs remarkable for leukocytosis of 11.9, no PIERRE or critical electrolyte abnormality to suspect postobstructive uropathy, urinalysis has bacteria, significant red blood cells, trace leukocytes, nitrate negative. Dr. Davidson recommends fluoroquinolone which would be prescribed by me. CT imaging shows marked bladder wall thickening with mass versus clot with surrounding stranding and border size lymph nodes neoplasm versus inflammation is on the differential. Dr. Davidson will follow-up on this this coming Wednesday and patient is appropriate for discharge at this time and was given return precautions we discharged with a course of antibiotics. Critical Care Critical Care Time Critical Care Time: No
[2024-03-20 09:35] LABS: Basophils # 0.1 K/mm3 (0-0.2); Basophils % 0.8 % (0.1-2.0); Eosinophils # 0.3 K/mm3 (0.0-0.4); Eosinophils % 2.9 % (0.1-12.0); Hemoglobin 14.5 g/dL (12.2-16.2); Lymphocytes # 1.7 K/mm3 (0.7-4.5); Lymphocytes % 14.2 % (10-50); Mean Corpuscular HGB Conc 31.5 g/dL (31.8-35.4); Mean Corpuscular Hemoglobin 28.2 pg (27.0-31.2); Mean Corpuscular Volume 89.3 fl (81-99); Mean Platelet Volume 9.4 fl (7.4-10.4); Monocytes # 0.6 K/mm3 (0.1-1.0); Monocytes % 4.9 % (1.7-9.3); Neutrophils # 9.2 K/mm3 (1.8-7.8); Neutrophils % 77.2 % (37.0-80.0); Platelet Count 248 K/mm3 (142-424); Red Blood Count 5.15 M/mm3 (4.20-5.40); White Blood Count 11.9 K/mm3 (4.8-10.8)
--- NOTE | 2024-03-20 09:35 | PC.NURSE ---
DR WHATLEY AT BEDSIDE, WILL PLACE TYREE.
--- NOTE | 2024-03-20 09:44 | PC.NURSE ---
Contacted Marya for assistance on insurance for pt. She will be to see the pt
[2024-03-20 09:48] LABS: Alanine Aminotransferase 21 U/L (12-78); Albumin Level 4.3 g/dl (3.5-5.0); Albumin/Globulin Ratio 1.8 (1.1-1.8); Alkaline Phosphatase 73 U/L (38-126); Anion Gap 12.1 mEq/L (5-15); Aspartate Amino Transferase 28 U/L (14-36); Bilirubin,Total 0.6 mg/dl (0.2-1.3); Blood Urea Nitrogen 19 mg/dl (7-17); Calcium 9.1 mg/dl (8.4-10.2); Carbon Dioxide 23 mmol/L (22.0-30.0); Chloride 108 mmol/L (98-107); Creatinine Clearance Estimated 70 mL/min (50-200); Estimated Glomerular Filt Rate 73 ml/min (>60); GFR (African American) 89 ML/MIN (>60); Globulin 2.4 g/dL (1.3-3.2); Glucose 93 mg/dl (74-100); Potassium 4.1 mmoL/L (3.5-5.1); Sodium 139 mmol/L (136-145); Total Protein,Serum 6.7 g/dl (6.3-8.2)
[2024-03-20 09:53] LABS: Microscopic, Urine URINE MICROSCOPIC (MICROSCOPIC)
[2024-03-20] MEDS: ACETAMINOPHEN 1,000MG/100ML VIAL 1000 MG IV (09:59)
[2024-03-20] MEDS: ONDANSETRON 4MG/2ML VIAL 4 MG IV (09:59)
[2024-03-20 10:05] LABS: Appearance,Urine SL CLOUDY (Clear); Bilirubin,Urine Negative (Negative); Blood, Urine 3+ (Negative); Color,Urine YELLOW (Yellow); Glucose,Urine (UA) Negative (Negative); Ketones,Urine Negative (Negative); Leukocyte Esterase,Urine 1+ (Negative); Nitrate,Urine Negative (Negative); Protein,Urine 2+ (Negative); Specific Gravity, Urine <= 1.005 (1.005-1.030); Urobilinogen,Urine 0.2 EU/dl (0.2)
--- NOTE | 2024-03-20 10:10 | PC.NURSE ---
PT TO CT
[2024-03-20] MEDS: SODIUM CHLORIDE 0.9% 10ML SYR (RAD ONLY) 10 ML IV (10:15)
[2024-03-20] MEDS: IOPAMIDOL-370 (76%);100ML BOTTLE 75 ML IV (10:15)
--- NOTE | 2024-03-20 10:19 | PC.NURSE ---
PT RETURNED FROM CT
[2024-03-20 10:25] LABS: Bacteria,Urine Trace /lpf; RBC,Urine 20-50 #/hpf (0-3)
[2024-03-20 10:26] LABS: Transitional Epi Cells,Urine OCC #/lpf (0-3)
[2024-03-20 11:20] LABS: HIV (1&2) Antibody Rapid NONREACTIVE (NONREACTIVE)
--- NOTE | 2024-03-20 13:01 | PC.NURSE ---
urine output 1200 cc
--- NOTE | 2024-03-20 13:01 | PC.NURSE ---
cath bag changed leg bag
[2024-03-21 09:22] LABS: HCV Ab Non Reactive (Non Reactive)
--- NOTE | 2024-03-23 13:26 | PC.NURSE ---
URINE CULTURE DISCUSSED WITH DR BROCK, ATTEMPTED TO FOLLOW-UP WITH PT. MESSAGE LEFT
== END 2024-03-20 13:04 | disposition home or self-care (01) ==
PROVIDERS: Emergency Provider Emergency Medicine; PCP Family Medicine
DX: N39.0 Urinary tract infection, site not specified (principal); N32.89 Other specified disorders of bladder; R30.9 Painful micturition, unspecified; R33.8 Other retention of urine; R10.30 Lower abdominal pain, unspecified
CPT/HCPCS: 74177; 80053; 81001; 85025; 86803; 87086; 87088; 87186; 87389; 96374; 96375; 99284; J0131; J2405; Q9967

== ENCOUNTER 2024-03-20 15:42 | Emergency (ER) | payer SELFPAY ==
--- NOTE | 2024-03-20 16:53 | ED_ITS ---
<Statement entered by Fausto Jones MD - 03/21/24 14:08> I was consulted by the BRENNON, and we discussed the complexity of the problems being addressed. I approved the treatment and management plan for this patient's care in the emergency department, thus performing a substantive portion of the medical decision making. Fausto Jones MD Discharge Plan Disposition Patient Disposition: Home, Self-Care Condition: Good Prescriptions Prescriptions: No Action levofloxacin 750 mg tablet 750 mg PO DAILY 7 Days Qty: 7 0RF Referrals Follow up/Referrals: South Swift MD [Primary Care Provider] - See instructions Activity Restrictions/Add. Instructions Additional Instructions/Restrictions: Keep all the follow-ups scheduled. Return to ER for any worsening or symptoms as needed Clinical Impressions Clinical Impression: Malfunction of Lucio catheter Qualifiers: Encounter type: initial encounter Qualified Code(s): T83.011A - Breakdown (mechanical) of indwelling urethral catheter, initial encounter Print Language Print Language: Kinyarwanda Discharge ED Provider: Sindy Hardy General Adult HPI General Stated complaint: F/C came out Time Seen by Provider: 03/20/24 15:56 History of Present Illness HPI narrative: Patient presents for evaluation of a Lucio malfunction. Patient had a Lucio catheter placed in the ER earlier this day however of the Lucio catheter fell out abruptly. Patient has no other symptoms and please see Dr. Jones's H&P from today's date for the full history. Catheter initially placed by Dr. Davidson in the ER. Related Data Previous Rx's ?Medication ?Instructions ?Recorded levofloxacin 750 mg tablet 750 mg PO DAILY UTI 7 days #7 tabs 03/20/24 Allergies Allergy/AdvReac Type Severity Reaction Status Date / Time morphine Allergy Other Verified 02/15/24 08:44 [facility] Disclaimer: The information contained in this section may have been updated after the patient was seen, as this information can be updated by other users. Medical History (Updated 03/20/24 @ 16:59 by KUSH Mora) Bladder infection Under or uninsured Substance abuse Alcoholism Anxiety Bladder cancer Depression Surgical History Hx of tonsillectomy History of mandibular surgery Hx of hysterectomy Family History Other Bleeding disorder Cancer Coronary artery disease Diabetes Hypertension Social History (Updated 02/23/24 @ 11:43 by Mayra Cannon RN) Smoking Status: Former smoker tobacco type: cigarettes smoking status stop date: 2 weeks ago alcohol intake: current alcohol intake frequency: holidays/special occasions only substance use type: former substance user current occupational status: employed Travel in the last 8 weeks: None Other Medical History Have you received the Flu Vaccine for this season: No Have you received the Pneumonia Vaccine: No ROS Obtained: Yes Systems reviewed as appropriate & no additional complaints except as documented Physical Exam General General appearance: alert and in no apparent distress Respiratory Respiratory exam: Present normal lung sounds bilaterally Cardiovascular Cardiovascular exam: Present regular rate and normal rhythm Neurological Exam Neurological exam: Present alert and oriented X3 Medical Decision Making Medical Records Medical records reviewed: Yes I reviewed the patient's medical records. Screening: Per USPSTF and CDC recommendations, given the prevalence of disease in our region, it is our hospital?s policy to screen for HIV and viral Hepatitis for all patients aged 18 and over and those with ongoing risk factors. Barry Inquiry Pt receiving controlled substance: No Medical Decision Narrative: In summary patient is a 58-year-old female who presents to the emergency department for evaluation of Lucio malfunction. Patient is hemodynamically stable upon arrival, febrile. Currently physical exam is unremarkable and nonfocal. Differential diagnosis could have cleared bladder out obstruction however patient presented immediately after the catheter came out thus Lucio malfunction is only relevant 1. Initial workup was performed earlier this date thus no further workup required. Initial interventions include anchoring into Lucio catheter. Lucio catheter replaced easily and patient is appropriate for discharge with continued followed up as previously scheduled. Critical Care Critical Care Time Critical Care Time: No
[2024-03-20 17:11] VITALS: RESP 18; O2SAT 97; BMI 19.7
[2024-03-20 17:14] VITALS: BP 137/89; PULSE 86; RESP 18; TEMP 36.8; O2SAT 96
== END 2024-03-20 17:17 | disposition home or self-care (01) ==
PROVIDERS: Emergency Provider Emergency Medicine; PCP Family Medicine
DX: T83.011A Breakdown (mechanical) of indwelling urethral catheter, initial encounter (principal)
CPT/HCPCS: 99281

== ENCOUNTER 2024-04-01 08:11 | Emergency (ER) | payer SELFPAY ==
[2024-04-01 08:12] VITALS: BP 138/75; PULSE 63; RESP 18; TEMP 36.9; O2SAT 98; BMI 22.3
[2024-04-01 08:30] VITALS: BP 141/71; PULSE 65; O2SAT 98
--- NOTE | 2024-04-01 08:55 | HMH.EDGENADL ---
Discharge Plan Disposition Chief Complaint: Urogenital-Female Prescriptions Prescriptions: New cephalexin 500 mg capsule 1,000 mg PO BID 7 Days Qty: 28 0RF No Action levofloxacin 750 mg tablet 750 mg PO DAILY 7 Days Qty: 7 0RF Referrals Follow up/Referrals: South Swift MD [Primary Care Provider] - See instructions Activity Restrictions/Add. Instructions Additional Instructions/Restrictions: Follow-up with Dr. Lawson and urology at [facility]. They will call you to schedule an appointment to follow-up. Call your family doctor to establish care for this visit to the emergency department and schedule follow-up within 48 hours to ensure improvement. If you have any worsening of your condition or any other concerning signs or symptoms, return to the emergency department or your primary care doctor for further evaluation. Clinical Impressions Clinical Impression: Hematuria Instructions Patient Instructions: DI for Urinary Tract Infection (UTI), DI for Urinary Tract Infection in Children Print Language Print Language: Faroese Discharge ED Provider: Rufino Reece General Adult HPI General Chief complaint: Urogenital-Female Stated complaint: blood in urine Time Seen by Provider: 04/01/24 08:17 Mode of Arrival: Ambulatory Source of Information: Patient Limitations: No Limitations Description of Symptoms (Recalled from ER Triage Doc. by RN): blood in urine. has bladder cancer History of Present Illness HPI narrative: Please note that above description of symptoms, in this electronic medical record under categorization of recalled from ER triage doctor by RN are reflective of an initial nursing assessment, however, is not reflective of my full history and physical exam that was personally taken and clarified. Consequentially, this preceding description of symptoms, which may include the patient's categorized chief complaint in the EMR, do not reflect my personal clinical impression, and the ultimate description of history of present illness and patient stated complaints should be deferred to this section of the note. Unless stated otherwise or congruent with this section of the note, additional signs, symptoms, or incongruence should be interpreted as inaccurate with my clinical impression. Related Data Previous Rx's ?Medication ?Instructions ?Recorded levofloxacin 750 mg tablet 750 mg PO DAILY UTI 7 days #7 tabs 03/20/24 cephalexin 500 mg capsule 1,000 mg (2 x 500 mg) PO BID 7 04/01/24 days #28 caps Allergies Allergy/AdvReac Type Severity Reaction Status Date / Time morphine Allergy Other Verified 03/27/24 09:13 PFSH PFSH Disclaimer: The information contained in this section may have been updated after the patient was seen, as this information can be updated by other users. Medical History Bladder infection Under or uninsured Substance abuse Alcoholism Anxiety Bladder cancer Depression Surgical History Hx of tonsillectomy History of mandibular surgery Hx of hysterectomy Family History Other Bleeding disorder Cancer Coronary artery disease Diabetes Hypertension Social History Smoking Status: Never smoker smoking status stop date: 2 weeks ago alcohol intake: current alcohol intake frequency: holidays/special occasions only substance use type: former substance user current occupational status: employed Other Medical History Have you received the Flu Vaccine for this season: No Have you received the Pneumonia Vaccine: No ROS Obtained: Yes All systems reviewed & no additional complaints except as documented Physical Exam General General appearance: alert Head Head exam: atraumatic and normocephalic Eye Eye exam: Present normal appearance, PERRL and EOMI Neck Neck exam: Present normal inspection, full ROM and trachea midline Respiratory Respiratory exam: Absent respiratory distress, wheezes, stridor, accessory muscle use or prolonged expiratory phase Cardiovascular Cardiovascular exam: Present other (Pulses equal symmetric in upper and lower extremities) Abdominal Exam Abdominal exam: Present soft; Absent distention, tenderness or pulsatile mass Extremities Exam Extremities exam: Absent edema Neurological Exam Neurological exam: Present alert, oriented X3 and CN II-XII intact; Absent motor sensory deficit Skin Skin exam: Present warm and dry; Absent diaphoresis or erythema Medical Decision Making Medical Records Medical records reviewed: Yes I reviewed the patient's medical records. Screening: Per USPSTF and CDC recommendations, given the prevalence of disease in our region, it is our hospital?s policy to screen for HIV and viral Hepatitis for all patients aged 18 and over and those with ongoing risk factors. Barry Inquiry Pt receiving controlled substance: No Barry was queried for this patient: No Vital Signs: 04/01/24 08:12 04/01/24 08:30 Temperature 98.4 F Temperature Source Oral Pulse Rate 65 Pulse Rate [Right] 63 Respiratory Rate 18 Blood Pressure 141/71 H Blood Pressure [Right Arm] 138/75 Blood Pressure Mean [Right Arm] 96 02 Sat by Pulse Oximetry 98 98 Lab Data Lab Results 04/01/24 08:50: WBC 7.6, RBC 4.91, Hgb 13.7, Hct 43.0, MCV 87.6, MCH 28.0, MCHC 32.0, RDW 14.6, Plt Count 258, MPV 8.9, Neut % (Auto) 57.8, Lymph % (Auto) 28.3, [place] % (Auto) 6.5, Eos % (Auto) 6.1, Baso % (Auto) 1.3, Neut # (Auto) 4.4, Lymph # (Auto) 2.1, [place] # (Auto) 0.5, Eos # (Auto) 0.5 H, Baso # (Auto) 0.1, Sodium 140, Potassium 3.8, Chloride 107, Carbon Dioxide 27, Anion Gap 9.8, BUN 15, Creatinine 0.70, Estimated Creat Clear 80, Estimated GFR 85, Est GFR ( Amer) 103, Glucose 89, Calcium 8.7, Total Bilirubin 0.6, AST 28, ALT 20, Alkaline Phosphatase 67, Total Protein 6.3, Albumin 4.1, Globulin 2.2, Albumin/Globulin Ratio 1.9 H, Urine Color Red, Urine Appearance Turbid, Urine pH 6.5, Ur Specific [place] 1.020, Urine Protein 2+ A, Urine Glucose (UA) Negative, Urine Ketones Negative, Urine Blood 3+ A, Urine Nitrate Negative, Urine Bilirubin Negative, Urine Urobilinogen 0.2, Ur Leukocyte Esterase 1+ A, Urine RBC Tntc, Urine WBC 3-5, Ur Squamous Epith Cells Occasional, Urine Bacteria 1+ 04/01/24 08:50 04/01/24 08:50 Orders (Tests/Meds): ORDERS Category Date Time Status CBC w/Auto Diff [Complete Blood Count Auto Diff] Stat Lab 04/01/24 08:50 Completed CMP [Comprehensive Metabolic Panel] Stat Lab 04/01/24 08:50 Completed UA [Urinalysis and Microscopic] Stat Lab 04/01/24 08:50 Completed Urine Culture Stat Micro 04/01/24 08:50 Received Medical Decision Narrative: 58-year-old female history of smoking, COPD, bladder cancer with recurrence of disease Lucio catheter in place presenting with hematuria. Patient states that starting yesterday, 03/31, she noticed that her Lucio bag started filling up with what looked primarily to be blood. Not passing clots. States that she has not any fevers, chills, nausea, vomiting, abdominal pain, but is having some left flank pain. Otherwise feels okay. States that she had follow-up with urology here at [facility], does not feel that she got anything out of that appointment and is now being referred to [place]. Has not had that follow-up yet. History was obtained via conversation with patient. On arrival, patient hemodynamically stable, alert, oriented x4, appropriate, GCS 15, moving all extremities spontaneously, pupils equal and reactive to light. Full physical exam performed and significant for well-appearing female no acute distress. Abdomen soft, nontender, nondistended. No flank tenderness. No overlying skin changes. Gross blood in the Lucio bag. Differential includes recurrence of disease, gross hematuria, hemorrhagic cystitis, among others. Patient placed on continuous cardiac monitoring and continuous pulse ox with initial blood pressure 138/75, heart rate 63, saturation 98% on room air. Workup independently interpreted and significant for nonactionable CBC or chemistry. He had patient's urinalysis with blood, protein, some scant leukocyte esterase and bacteria, no evidence of nitrites. Similar to previous urine, opting to treat. On independent interpretation of imaging, patient does have bladder wall thickening and mass consistent with likely oncologic process. See radiology read for full review of final results. On reevaluation, patient resting comfortably. Urology at the [facility] was contacted and interactive discussion was had with Dr. Lawson around 10:10 AM on 04/01. Recommended outpatient follow-up, I feel this is appropriate. Information given. Given patient presentation, workup, history, this most likely represents hemorrhagic bladder mass. Because patient at baseline without signs or symptoms of clinical decompensation, deemed appropriate for discharge. Results were relayed to patient who voiced understanding and were agreeable to outpatient management and follow up. I discussed my clinical impression with patient and answered all questions. At this time, the evidence for any other entities in the differential is insufficient to warrant any further testing or ED observation. This was explained as well. Advisory was given that persistent or worsening symptoms require further evaluation. I confirmed the understanding of this discussion. Canoe Inspector Final disclaimer Much of this encounter note is an electronic membership sales representative spoken language to printed text. Electronic membership sales representative of the spoken language may permit errors. Although I have reviewed the note, some errors may still exist. Critical Care Critical Care Time Critical Care Time: No
[2024-04-01 08:56] LABS: Microscopic, Urine URINE MICROSCOPIC (MICROSCOPIC)
[2024-04-01 09:03] LABS: Basophils # 0.1 K/mm3 (0-0.2); Basophils % 1.3 % (0.1-2.0); Eosinophils # 0.5 K/mm3 (0.0-0.4); Eosinophils % 6.1 % (0.1-12.0); Hemoglobin 13.7 g/dL (12.2-16.2); Lymphocytes # 2.1 K/mm3 (0.7-4.5); Lymphocytes % 28.3 % (10-50); Mean Corpuscular Volume 87.6 fl (81-99); Mean Platelet Volume 8.9 fl (7.4-10.4); Monocytes # 0.5 K/mm3 (0.1-1.0); Monocytes % 6.5 % (1.7-9.3); Neutrophils # 4.4 K/mm3 (1.8-7.8); Neutrophils % 57.8 % (37.0-80.0); Platelet Count 258 K/mm3 (142-424); Red Blood Count 4.91 M/mm3 (4.20-5.40); Red Cell Distribution Width 14.6 % (11.5-17.5); White Blood Count 7.6 K/mm3 (4.8-10.8)
[2024-04-01 09:12] LABS: Appearance,Urine TURBID (Clear); Bilirubin,Urine Negative (Negative); Blood, Urine 3+ (Negative); Color,Urine RED (Yellow); Glucose,Urine (UA) Negative (Negative); Ketones,Urine Negative (Negative); Leukocyte Esterase,Urine 1+ (Negative); Nitrate,Urine Negative (Negative); PH,Urine 6.5 (5.0-8.5); Protein,Urine 2+ (Negative); Urobilinogen,Urine 0.2 EU/dl (0.2)
[2024-04-01 09:14] LABS: Alanine Aminotransferase 20 U/L (12-78); Albumin Level 4.1 g/dl (3.5-5.0); Albumin/Globulin Ratio 1.9 (1.1-1.8); Alkaline Phosphatase 67 U/L (38-126); Anion Gap 9.8 mEq/L (5-15); Aspartate Amino Transferase 28 U/L (14-36); Bilirubin,Total 0.6 mg/dl (0.2-1.3); Blood Urea Nitrogen 15 mg/dl (7-17); Calcium 8.7 mg/dl (8.4-10.2); Carbon Dioxide 27 mmol/L (22.0-30.0); Chloride 107 mmol/L (98-107); Creatinine Clearance Estimated 80 mL/min (50-200); Estimated Glomerular Filt Rate 85 ml/min (>60); GFR (African American) 103 ML/MIN (>60); Globulin 2.2 g/dL (1.3-3.2); Glucose 89 mg/dl (74-100); Potassium 3.8 mmoL/L (3.5-5.1); Sodium 140 mmol/L (136-145); Total Protein,Serum 6.3 g/dl (6.3-8.2)
[2024-04-01 09:16] LABS: Bacteria,Urine 1+ /lpf; RBC,Urine TNTC #/hpf (0-3); Squamous Epithelial Cell,Urine Occasional #/hpf (0-5)
--- NOTE | 2024-04-01 09:46 | PC.NURSE ---
calling for appointment to [place]
--- NOTE | 2024-04-01 10:05 | PC.NURSE ---
speaking with transfer center
[2024-04-01 10:32] VITALS: BP 96/79; PULSE 68; RESP 18; TEMP 36.9; O2SAT 100
--- NOTE | 2024-04-02 08:15 | PC.NURSE ---
urine culture discussed with , pt dc with cephalexin, ntd
== END 2024-04-01 10:33 | disposition home or self-care (01) ==
PROVIDERS: Emergency Provider Emergency Medicine; PCP Family Medicine
DX: R31.9 Hematuria, unspecified (principal); C67.9 Malignant neoplasm of bladder, unspecified
CPT/HCPCS: 80053; 81001; 85025; 87086; 87088; 87186; 99283

== ENCOUNTER 2024-05-11 18:38 | Observation (INO) | payer OTHER, SELFPAY ==
[2024-05-11 18:40] VITALS: BP 181/91; PULSE 82; RESP 20; TEMP 36.7; O2SAT 97; BMI 23.8
[2024-05-11 18:51] VITALS: BP 181/91
--- NOTE | 2024-05-11 19:01 | ED_ITS ---
Discharge Plan Disposition Patient Disposition: Admitted Condition: Fair Clinical Impressions Clinical Impression: Complicated urinary tract infection, Infection with multi-drug resistant microorganisms, Bladder spasm Bladder cancer Qualifiers: Bladder location: unspecified site Qualified Code(s): C67.9 - Malignant neoplasm of bladder, unspecified Discharge ED Provider: Rufino Reece General Adult HPI <KUSH Mora - Last Filed: 05/11/24 21:20> General Chief complaint: PAIN Stated complaint: CA Bladder has F/C with Bladder spasms Time Seen by Provider: 05/11/24 19:00 History of Present Illness HPI narrative: Patient presents for evaluation of bladder spasms. Patient has a known history of recurrent bladder cancer and a chronic indwelling Lucio. She had the Lucio placed in March and it was just exchanged on 04/28/2024 at [facility]. They apparently did a urinalysis but she does not know the results however she was told that they would call in a medication and something for the bladder spasms which has not occurred. Patient reports that today at work she began having a significant increase in her bladder spasm pain and the bladder spasms caused her to leak urine around the Lucio catheter. She denies fever chills hemoptysis hematochezia melena reports some nausea but no vomiting diarrhea. Related Data Home Medications ?Medication ?Instructions ?Recorded ?Confirmed No Known Home Medications 05/12/24 05/12/24 Allergies Allergy/AdvReac Type Severity Reaction Status Date / Time morphine Allergy Other Verified 03/27/24 09:13 PFSH <KUSH Mora - Last Filed: 05/11/24 21:20> [facility] Disclaimer: The information contained in this section may have been updated after the patient was seen, as this information can be updated by other users. Medical History Bladder infection Under or uninsured Substance abuse Alcoholism Anxiety Bladder cancer Depression Surgical History Hx of tonsillectomy History of mandibular surgery Hx of hysterectomy Family History Other Bleeding disorder Cancer Coronary artery disease Diabetes Hypertension Social History Smoking Status: Former smoker tobacco type: cigarettes years smoked: 30 smoking status stop date: 2 weeks ago , also had paused after June for pneumonia alcohol intake: current alcohol intake frequency: holidays/special occasions only substance use type: former substance user current occupational status: employed Travel in the last 8 weeks: None Other Medical History Have you received the Flu Vaccine for this season: No Have you received the Pneumonia Vaccine: No <KUSH Mora - Last Filed: 05/11/24 21:20> ROS Obtained: Yes Systems reviewed as appropriate & no additional complaints except as documented Physical Exam <KUSH Mora - Last Filed: 05/11/24 21:20> General General appearance: alert Respiratory Respiratory exam: Present normal lung sounds bilaterally Cardiovascular Cardiovascular exam: Present regular rate Neurological Exam Neurological exam: Present alert and oriented X3 Medical Decision Making <KUSH Mora - Last Filed: 05/11/24 21:20> Medical Records Medical records reviewed: Yes I reviewed the patient's medical records. Screening: Per USPSTF and CDC recommendations, given the prevalence of disease in our region, it is our hospital?s policy to screen for HIV and viral Hepatitis for all patients aged 18 and over and those with ongoing risk factors. Barry Inquiry Pt receiving controlled substance: No Vital Signs: 05/11/24 18:40 05/11/24 18:51 05/11/24 20:25 Temperature 98.0 F 97.8 F Temperature Source Oral Pulse Rate 94 H Pulse Rate [Left Radial] 82 Respiratory Rate 20 18 Blood Pressure 181/91 H 136/83 Blood Pressure [Right Arm] 181/91 H Blood Pressure Mean 121 Blood Pressure Mean [Right Arm] 121 02 Sat by Pulse Oximetry 97 Oxygen Delivery Method Room Air Room Air Lab Data Lab results reviewed: Yes I reviewed the patient's lab results. Lab Results 05/11/24 20:10: Urine Color Yellow, Urine Appearance Cloudy, Urine pH 6.0, Ur Specific [place] 1.020, Urine Protein 2+ A, Urine Glucose (UA) Negative, Urine Ketones Negative, Urine Blood 3+ A, Urine Nitrate Negative, Urine Bilirubin Negative, Urine Urobilinogen 0.2, Ur Leukocyte Esterase 2+ A, Urine RBC Tntc, Urine WBC Tntc, Ur Squamous Epith Cells 50-100, Urine Bacteria 4+ 05/11/24 20:19: WBC 14.0 H, RBC 4.54, Hgb 12.6, Hct 38.8, MCV 85.5, MCH 27.8, MCHC 32.5, RDW 13.5, Plt Count 288, MPV 11.7 H, Neut % (Auto) 74.9, Lymph % (Auto) 17.4, [place] % (Auto) 6.3, Eos % (Auto) 0.3, Baso % (Auto) 0.7, Neut # (Auto) 10.5 H, Lymph # (Auto) 2.4, [place] # (Auto) 0.9, Eos # (Auto) 0.0, Baso # (Auto) 0.1, Sodium 136, Potassium 4.2, Chloride 105, Carbon Dioxide 22, Anion Gap 13.2, BUN 25 H, Creatinine 0.80, Estimated Creat Clear 70, Estimated GFR 73, Est GFR ( Amer) 89, Glucose 97, Calcium 9.5, Magnesium 2.0, Total Bilirubin 0.2, AST 25, ALT 18, Alkaline Phosphatase 63, Total Protein 6.6, Albumin 4.3, Globulin 2.3, Albumin/Globulin Ratio 1.9 H 05/12/24 06:05 05/12/24 06:05 Orders (Tests/Meds): ED MEDICATIONS Generic Name Dose Route Start Last Admin Trade Name Freq PRN Reason Stop Dose Admin Acetaminophen 650 mg 05/11/24 20:22 Acetaminophen 325mg Tab PO 06/10/24 20:21 Q4HP PRN Fever or Mild Pain (1-3) Diphenhydramine HCl 25 mg 05/11/24 23:13 Diphenhydramine 25mg Capsule PO 06/10/24 23:12 HSP PRN Sleep Enoxaparin Sodium 40 mg 05/12/24 09:00 05/12/24 08:45 Enoxaparin 40mg/0.4ml Syringe SUBCUT 06/11/24 08:59 40 mg DAILY DAVID Administration Ertapenem 1 gm/ Sodium 50 mls @ 100 mls/hr 05/12/24 15:00 05/12/24 15:09 Chloride IV 05/22/24 14:59 100 mls/hr Q24H DAVID Administration Ketorolac Tromethamine 15 mg 05/11/24 20:22 05/12/24 04:56 Ketorolac 30mg/Ml Vial IV 05/16/24 20:21 15 mg Q6HP PRN Administration Moderate Pain (4-6) Ondansetron HCl 4 mg 05/11/24 20:22 Ondansetron 4mg/2ml Vial IV 06/10/24 20:21 Q8HP PRN Nausea Phenazopyridine HCl 200 mg 05/12/24 09:00 05/12/24 12:06 Phenazopyridine 200mg Tablet PO 06/11/24 08:59 Not Given TID DAVID Promethazine HCl 25 mg 05/11/24 20:22 Promethazine 25mg Tablet PO 06/10/24 20:21 Q6HP PRN Nausea And Vomiting Sodium Chloride 10 ml 05/11/24 20:26 Sodium Chloride 0.9% 10ml Flush Syringe IV 05/12/24 20:27 NEEDED PRN Maintain IV Site Sodium Chloride 10 ml 05/12/24 13:36 Sodium Chloride 0.9% 10ml Flush Syringe IV 05/13/24 13:37 NEEDED PRN Maintain IV Site Discontinued Medications Generic Name Dose Route Start Last Admin Trade Name Freq PRN Reason Stop Dose Admin Meropenem 1 gm/ Sodium 100 mls @ 100 mls/hr 05/11/24 20:00 05/12/24 11:56 Chloride IV 05/21/24 19:59 100 mls/hr Q8H DAVID Administration Miscellaneous 1 each 05/11/24 20:32 05/11/24 22:55 Pharmacy Consult Request NOTAPPLIC 05/11/24 20:33 Not Given CONSULT PHARMACY ONE Oxybutynin Chloride 5 mg 05/11/24 19:30 Oxybutynin 5mg Tab PO 05/11/24 19:31 ONCE ONE Phenazopyridine HCl 200 mg 05/11/24 19:05 05/11/24 19:41 Phenazopyridine 200mg Tablet PO 05/11/24 19:06 200 mg ONCE ONE Administration ORDERS Category Date Time Status XR chest portable PICC plac Routine Exams 05/12/24 20:27 Ordered CBC w/Auto Diff [Complete Blood Count Auto Diff] Stat Lab 05/11/24 20:19 Completed CMP [Comprehensive Metabolic Panel] Stat Lab 05/11/24 20:19 Completed Complete Blood Count Auto Diff AMLAB Lab 05/12/24 06:05 Completed Comprehensive Metabolic Panel AMLAB Lab 05/12/24 06:05 Completed Magnesium Routine Lab 05/11/24 20:19 Completed Urinalysis and Microscopic Stat Lab 05/11/24 20:10 Completed Urine Culture Stat Micro 05/11/24 20:10 Received Medical Decision Narrative: In summary patient is a 58-year-old female who presents to the emergency department for evaluation of bladder pain. Patient is hemodynamically stable with a blood pressure 181/91 pulse 82 respiratory rate 20 satting at 97% room air upon arrival, afebrile at 98. Physical exam reveals suprapubic tenderness and urine in her current leg bag appears to be cloudy and turbid. There is no rebound or guarding or rigidity bowel sounds normal active.. Differential diagnosis includes bladder spasm versus UTI versus cystitis etc. Initial workup will be conducted with hematologic labs urinalysis with culture. Initial interventions include oxybutynin and Lucio catheter change. Initial workup reviewed by me and while her hematologic labs are not back her urinalysis reveals 2+ protein negative ketones 3+ blood nitrite negative leukocyte Estrace 2+ microscopic exam shows too numerous to count red blood cells too numerous to count white cells 50-100 epithelial cells despite a Lucio catheter change and 4+ bacteria. 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 Given this I had an interactive discussion with hospital medicine regarding patient management and she will be admitted for IV antibiotics with plan for arrangement for outpatient antibiotics and referral to infectious disease. <Rufino Reece MD - Last Filed: 05/12/24 15:17> Vital Signs: 05/11/24 18:40 05/11/24 18:51 05/11/24 20:25 Temperature 98.0 F 97.8 F Temperature Source Oral Pulse Rate 94 H Pulse Rate [Left Radial] 82 Respiratory Rate 20 18 Blood Pressure 181/91 H 136/83 Blood Pressure [Right Arm] 181/91 H Blood Pressure Mean 121 Blood Pressure Mean [Right Arm] 121 02 Sat by Pulse Oximetry 97 Oxygen Delivery Method Room Air Room Air Lab Data Lab Results 05/11/24 20:10: Urine Color Yellow, Urine Appearance Cloudy, Urine pH 6.0, Ur Specific [place] 1.020, Urine Protein 2+ A, Urine Glucose (UA) Negative, Urine Ketones Negative, Urine Blood 3+ A, Urine Nitrate Negative, Urine Bilirubin Negative, Urine Urobilinogen 0.2, Ur Leukocyte Esterase 2+ A, Urine RBC Tntc, Urine WBC Tntc, Ur Squamous Epith Cells 50-100, Urine Bacteria 4+ 05/11/24 20:19: WBC 14.0 H, RBC 4.54, Hgb 12.6, Hct 38.8, MCV 85.5, MCH 27.8, MCHC 32.5, RDW 13.5, Plt Count 288, MPV 11.7 H, Neut % (Auto) 74.9, Lymph % (Auto) 17.4, [place] % (Auto) 6.3, Eos % (Auto) 0.3, Baso % (Auto) 0.7, Neut # (Auto) 10.5 H, Lymph # (Auto) 2.4, [place] # (Auto) 0.9, Eos # (Auto) 0.0, Baso # (Auto) 0.1, Sodium 136, Potassium 4.2, Chloride 105, Carbon Dioxide 22, Anion Gap 13.2, BUN 25 H, Creatinine 0.80, Estimated Creat Clear 70, Estimated GFR 73, Est GFR ( Amer) 89, Glucose 97, Calcium 9.5, Magnesium 2.0, Total Bilirubin 0.2, AST 25, ALT 18, Alkaline Phosphatase 63, Total Protein 6.6, Albumin 4.3, Globulin 2.3, Albumin/Globulin Ratio 1.9 H Orders (Tests/Meds): ED MEDICATIONS Generic Name Dose Route Start Last Admin Trade Name Freq PRN Reason Stop Dose Admin Acetaminophen 650 mg 05/11/24 20:22 Acetaminophen 325mg Tab PO 06/10/24 20:21 Q4HP PRN Fever or Mild Pain (1-3) Diphenhydramine HCl 25 mg 05/11/24 23:13 Diphenhydramine 25mg Capsule PO 06/10/24 23:12 HSP PRN Sleep Enoxaparin Sodium 40 mg 05/12/24 09:00 05/12/24 08:45 Enoxaparin 40mg/0.4ml Syringe SUBCUT 06/11/24 08:59 40 mg DAILY DAVID Administration Ertapenem 1 gm/ Sodium 50 mls @ 100 mls/hr 05/12/24 15:00 05/12/24 15:09 Chloride IV 05/22/24 14:59 100 mls/hr Q24H DAVID Administration Ketorolac Tromethamine 15 mg 05/11/24 20:22 05/12/24 04:56 Ketorolac 30mg/Ml Vial IV 05/16/24 20:21 15 mg Q6HP PRN Administration Moderate Pain (4-6) Ondansetron HCl 4 mg 05/11/24 20:22 Ondansetron 4mg/2ml Vial IV 06/10/24 20:21 Q8HP PRN Nausea Phenazopyridine HCl 200 mg 05/12/24 09:00 05/12/24 12:06 Phenazopyridine 200mg Tablet PO 06/11/24 08:59 Not Given TID DAVID Promethazine HCl 25 mg 05/11/24 20:22 Promethazine 25mg Tablet PO 06/10/24 20:21 Q6HP PRN Nausea And Vomiting Sodium Chloride 10 ml 05/11/24 20:26 Sodium Chloride 0.9% 10ml Flush Syringe IV 05/12/24 20:27 NEEDED PRN Maintain IV Site Sodium Chloride 10 ml 05/12/24 13:36 Sodium Chloride 0.9% 10ml Flush Syringe IV 05/13/24 13:37 NEEDED PRN Maintain IV Site Discontinued Medications Generic Name Dose Route Start Last Admin Trade Name Freq PRN Reason Stop Dose Admin Meropenem 1 gm/ Sodium 100 mls @ 100 mls/hr 05/11/24 20:00 05/12/24 11:56 Chloride IV 05/21/24 19:59 100 mls/hr Q8H DAVID Administration Miscellaneous 1 each 05/11/24 20:32 05/11/24 22:55 Pharmacy Consult Request NOTAPPLIC 05/11/24 20:33 Not Given CONSULT PHARMACY ONE Oxybutynin Chloride 5 mg 05/11/24 19:30 Oxybutynin 5mg Tab PO 05/11/24 19:31 ONCE ONE Phenazopyridine HCl 200 mg 05/11/24 19:05 05/11/24 19:41 Phenazopyridine 200mg Tablet PO 05/11/24 19:06 200 mg ONCE ONE Administration ORDERS Category Date Time Status XR chest portable PICC plac Routine Exams 05/12/24 20:27 Ordered CBC w/Auto Diff [Complete Blood Count Auto Diff] Stat Lab 05/11/24 20:19 Completed CMP [Comprehensive Metabolic Panel] Stat Lab 05/11/24 20:19 Completed Complete Blood Count Auto Diff AMLAB Lab 05/12/24 06:05 Completed Comprehensive Metabolic Panel AMLAB Lab 05/12/24 06:05 Completed Magnesium Routine Lab 05/11/24 20:19 Completed Urinalysis and Microscopic Stat Lab 05/11/24 20:10 Completed Urine Culture Stat Micro 05/11/24 20:10 Received Medical Decision Narrative: In summary patient is a 58-year-old female who presents to the emergency department for evaluation of bladder pain. Patient is hemodynamically stable with a blood pressure 181/91 pulse 82 respiratory rate 20 satting at 97% room air upon arrival, afebrile at 98. Physical exam reveals suprapubic tenderness and urine in her current leg bag appears to be cloudy and turbid. There is no rebound or guarding or rigidity bowel sounds normal active.. Differential diagnosis includes bladder spasm versus UTI versus cystitis etc. Initial workup will be conducted with hematologic labs urinalysis with culture. Initial interventions include oxybutynin and Lucio catheter change. Initial workup reviewed by me and while her hematologic labs are not back her urinalysis reveals 2+ protein negative ketones 3+ blood nitrite negative leukocyte Estrace 2+ microscopic exam shows too numerous to count red blood cells too numerous to count white cells 50-100 epithelial cells despite a Lucio catheter change and 4+ bacteria. 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 Given this I had an interactive discussion with hospital medicine regarding patient management and she will be admitted for IV antibiotics with plan for arrangement for outpatient antibiotics and referral to infectious disease. I was consulted by the BRENNON, and we discussed the complexity of the problems being addressed. I approved the treatment and management plan for this patient's care in the Emergency Department, thus performing a substantive portion of the medical decision making. Rufino Reece MD Critical Care <KUSH Mora - Last Filed: 05/11/24 21:20> Critical Care Time Critical Care Time: No
[2024-05-11] MEDS: PHENAZOPYRIDINE 200MG TABLET 200 MG PO (19:41)
[2024-05-11 20:17] LABS: Microscopic, Urine URINE MICROSCOPIC (MICROSCOPIC)
[2024-05-11 20:21] LABS: Bilirubin,Urine Negative (Negative); Blood, Urine 3+ (Negative); Color,Urine YELLOW (Yellow); Glucose,Urine (UA) Negative (Negative); Ketones,Urine Negative (Negative); Leukocyte Esterase,Urine 2+ (Negative); Nitrate,Urine Negative (Negative); Protein,Urine 2+ (Negative); Urobilinogen,Urine 0.2 EU/dl (0.2)
[2024-05-11 20:25] VITALS: BP 136/83; PULSE 94; RESP 18; TEMP 36.6; O2SAT 96
[2024-05-11 20:26] LABS: Basophils # 0.1 K/mm3 (0-0.2); Basophils % 0.7 % (0.1-2.0); Eosinophils % 0.3 % (0.1-12.0); Hematocrit 38.8 % (37.0-47.0); Hemoglobin 12.6 g/dL (12.2-16.2); Lymphocytes # 2.4 K/mm3 (0.7-4.5); Lymphocytes % 17.4 % (10-50); Mean Corpuscular HGB Conc 32.5 g/dL (31.8-35.4); Mean Corpuscular Hemoglobin 27.8 pg (27.0-31.2); Mean Corpuscular Volume 85.5 fl (81-99); Mean Platelet Volume 11.7 fl (7.4-10.4); Monocytes # 0.9 K/mm3 (0.1-1.0); Monocytes % 6.3 % (1.7-9.3); Neutrophils # 10.5 K/mm3 (1.8-7.8); Neutrophils % 74.9 % (37.0-80.0); Platelet Count 288 K/mm3 (142-424); Red Blood Count 4.54 M/mm3 (4.20-5.40); Red Cell Distribution Width 13.5 % (11.5-17.5)
[2024-05-11 20:40] VITALS: BP 136/83; PULSE 94; RESP 18; O2SAT 96; BMI 24.4
[2024-05-11 20:40] LABS: Chloride 105 mmol/L (98-107)
[2024-05-11 20:41] LABS: Albumin Level 4.3 g/dl (3.5-5.0); Potassium 4.2 mmoL/L (3.5-5.1); Sodium 136 mmol/L (136-145)
[2024-05-11 20:43] LABS: Blood Urea Nitrogen 25 mg/dl (7-17); Creatinine Clearance Estimated 70 mL/min (50-200); Estimated Glomerular Filt Rate 73 ml/min (>60); GFR (African American) 89 ML/MIN (>60)
[2024-05-11 20:44] LABS: Alanine Aminotransferase 18 U/L (12-78); Albumin/Globulin Ratio 1.9 (1.1-1.8); Alkaline Phosphatase 63 U/L (38-126); Anion Gap 13.2 mEq/L (5-15); Aspartate Amino Transferase 25 U/L (14-36); Bilirubin,Total 0.2 mg/dl (0.2-1.3); Calcium 9.5 mg/dl (8.4-10.2); Carbon Dioxide 22 mmol/L (22.0-30.0); Globulin 2.3 g/dL (1.3-3.2); Glucose 97 mg/dl (74-100); Total Protein,Serum 6.6 g/dl (6.3-8.2)
[2024-05-11 20:46] LABS: Appearance,Urine Cloudy (Clear)
[2024-05-11 20:47] LABS: Bacteria,Urine 4+ /lpf; RBC,Urine TNTC #/hpf (0-3); Squamous Epithelial Cell,Urine 50-100 #/hpf (0-5); WBC,Urine TNTC #/hpf (0-3)
--- NOTE | 2024-05-11 20:48 | P.HP_ITS ---
<Statement entered by Hira Lawson MD - 05/16/24 22:28> I personally evaluated the patient and agree with the plan as outlined by the FREIGHT MANAGER. History of Present Illness *Admission Date: 05/11/24 *Reason for visit:: Bladder cancer chronic Lucio with drug-resistant urinary tract infection *History of present illness: Ms. Zaldivar a 58-year-old female, has come to the emergency room today due to significant bladder spasm causing great pain. She has an indwelling catheter that is there due to urethral mass and bladder mass. Patient is noted to having previous bladder cancer treated in her 20s. Patient saw Dr. Davidson in the emergency room on 1111 of this year. Catheter was placed. And noting that catheter was also replaced on April 28 according to the patient. Per the patient she is expecting to start chemotherapy. It is noted that she has some concerning lymph node also previous CT scan a area in the spleen and questionable areas in the lungs. Patient was a long-term smoker but stopped in June 2023 after significant episode of pneumonia. Patient has been noted as having a urinary tract infection that is resistant with Morganella Morganii. Resistance to all except meropenem and ertapenem. Both drugs will require long-term IV use of a minimum of 14 days. Given first dose of meropenem in the emergency room. Pharmacy consult done for dosing, setting up for PICC line placement tomorrow. Then to consider referral to Dr. Polanco in [place] infectious disease to follow. 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 I have explained the PICC line placement and why it would be necessary. Or that s he would have to come in having IV antibiotics done which just was not practical. And she would not be able to work. Patient is insistent that she continues to work and states that she will then protect the PICC line the best she can Patient is stable at this time except for the intermittent bladder spasms which give a pain of 9 out of 10, we are now trying a couple things going to give 1 dose of Toradol to see if this will help. Noting that the patient has a history of hematuria but her CBC is normal at this time with normal platelets [facility] Disclaimer: The information contained in this section may have been updated after the patient was seen, as this information can be updated by other users. Medical History Bladder infection Under or uninsured Substance abuse Alcoholism Anxiety Bladder cancer Depression Surgical History Hx of tonsillectomy History of mandibular surgery Hx of hysterectomy Family History Other Bleeding disorder Cancer Coronary artery disease Diabetes Hypertension Social History (Updated 05/11/24 @ 20:54 by Nahum Ward APRN) Smoking Status: Former smoker tobacco type: cigarettes years smoked: 30 smoking status stop date: 2 weeks ago , also had paused after June for pneumonia alcohol intake: current alcohol intake frequency: holidays/special occasions only substance use type: former substance user current occupational status: employed Travel in the last 8 weeks: None Have you lived/traveled outside US in past 30 days?: No Contact w/someone who lives/traveled outside US past 30 days?: No Exposure to someone with infectious disease in past 14 days?: No Do you have a fever (greater than 100.4 F or 38 C)?: No Have you tested positive for COVID-19: No Exposed to someone with COVID-19 in past 14 days?: No Do you have a sore throat?: No Do you have a cough?: No Do you have any weakness?: No Do you have any diarrhea?: No Are you experiencing any unusual bleeding?: No Do you have any muscle aches/pain?: No Do you have any abdominal pain?: No Are you experiencing loss of taste or smell?: No Other Medical History Have you received the Flu Vaccine for this season: No Have you received the Pneumonia Vaccine: No Review of Systems Review of Systems Review of systems:: pertinent systems reviewed and negative unless documented below Constitutional Constitutional: Reports as per HPI Eyes Eyes: Reports as per HPI ENT Ears, Nose, Mouth, and Throat: Reports as per HPI *Cardiovascular Cardiovascular: Reports as per HPI *Respiratory Respiratory: Reports as per HPI *Gastrointestinal Gastrointestinal: Reports as per HPI *Genitourinary Genitourinary: Reports as per HPI and Reports dysuria (Bladder spasms, Lucio in place) *Musculoskeletal Musculoskeletal: Reports as per HPI Integumentary/Breasts Skin/Breast: Reports as per HPI *Neurologic Neurologic: Reports as per HPI Psychiatric Psychiatric: Reports as per HPI Endocrine Endocrine: Reports as per HPI Hematologic/Lymphatic Hematologic/Lymphatic: Reports as per HPI Allergic/Immunologic Allergic/Immunologic: Reports as per HPI Meds Home Medications and Allergies Home Medications ?Medication ?Instructions ?Recorded ?Confirmed ?Type levofloxacin 750 mg tablet 750 mg PO DAILY UTI 7 days #7 tabs 03/20/24 03/27/24 Rx cephalexin 500 mg capsule 1,000 mg (2 x 500 mg) PO BID 7 04/01/24 Rx days #28 caps New Prescriptions to Start Prescriptions: Allergies Allergy/AdvReac Type Severity Reaction Status Date / Time morphine Allergy Other Verified 03/27/24 09:13 Exam Data for Last 24 hours Vital signs and Labs for Last 24 Hours: Temp Pulse Resp BP Pulse Ox O2 Del Method 97.8 F 94 H 18 136/83 97 Room Air 05/11/24 20:25 05/11/24 20:25 05/11/24 20:25 05/11/24 20:25 05/11/24 18:40 05/11/24 20:25 Laboratory Results - last 24 hr 05/11/24 20:10: Urine Color Yellow, Urine Appearance Cloudy, Urine pH 6.0, Ur Specific [place] 1.020, Urine Protein 2+ A, Urine Glucose (UA) Negative, Urine Ketones Negative, Urine Blood 3+ A, Urine Nitrate Negative, Urine Bilirubin Negative, Urine Urobilinogen 0.2, Ur Leukocyte Esterase 2+ A, Urine RBC Tntc, Urine WBC Tntc, Ur Squamous Epith Cells 50-100, Urine Bacteria 4+ I & O for Last 24 hours: Intake & Output 05/09/24 05/10/24 05/11/24 05/12/24 05:59 05:59 05:59 05:59 Weight 130 lb Constitutional Constitutional: mild distress Comments: Is stable without too much problems but then I sit with bladder spasm and quite a bit of pain lasting for up to 3 to 4 minutes. Recurrent every 15 to 30-minute *Routine HEENT Exam Head: Present normocephalic and atraumatic Eye: Present EOMI and PERRL ENT: Present mucous membranes moist *Routine Neck Exam Neck: Present supple and full ROM Routine Chest/Breast/Axilla Exam Comments: No chest wall tenderness equal expansion bilaterally on both lungs. *Routine Respiratory Exam Respiratory: Present decreased breath sounds, CTA bilaterally, normal respiratory effort, able to speak in complete sentences and symmetric chest mo vement *Routine Cardiovascular Exam Cardiovascular: Present RRR, Normal S1, Normal S2 and tachycardia *Routine Abdominal Exam Abdominal: Present soft and normoactive bowel sounds Comments: Mild tenderness on palpation did not press deep due to the patient's bladder spasm causing lots of discomfort to her Lucio is in place *Routine Rectal Exam Rectal:: deferred *Routine Genitalia Exam Genitalia:: deferred *Routine Extremities Exam Extremities: Present normal capillary refill Comments: Normal exam of arms and legs no signs of injury good range of motion able to stand without difficulty actually has been working and picking up packages Routine Back/Spine/Pelvis Exam Back/Spine: Present full ROM Comments: No signs of back discomfort or CVA tenderness on exam *Routine Skin Exam Skin: Present intact, dry and warm Comments: No lesions or abnormal bruising found *Routine Neurological Exam Neurological: Present alert, oriented X3, CN II-XII intact and normal speech Routine Psychiatric Exam Psychiatric: Present normal affect, normal thought process, cooperative, good insight and good judgment Comments: Patient is very stoic about her present situation really just needing the pain controlled. H&P: Result Impressions 1. Bladder spasm secondary to resistant urinary tract infection related to chronic Lucio catheter for bladder cancer 2. Long-term smoker has not smoked for couple of weeks no signs of respiratory difficulty Assessment and Plan *Assessment and plan (1) Mass of bladder: Status: Acute Category: Medical Code(s): N32.89 - Other specified disorders of bladder (2) Bladder cancer: Status: Acute Qualifiers: Bladder location: unspecified site Qualified Code(s): C67.9 - Malignant neoplasm of bladder, unspecified Category: Medical Code(s): C67.9 - Malignant neoplasm of bladder, unspecified (3) Bladder spasm: Status: Acute Category: Medical Code(s): N32.89 - Other specified disorders of bladder (4) Infection with multi-drug resistant microorganisms: Status: Acute Category: Medical (5) Complicated urinary tract infection: Status: Acute Category: Medical Code(s): N39.0 - Urinary tract infection, site not specified (6) Hematuria: Status: Acute Qualifiers: Hematuria type: gross Qualified Code(s): R31.0 - Gross hematuria Category: Medical Code(s): R31.9 - Hematuria, unspecified (7) COPD (chronic obstructive pulmonary disease): Status: Acute Qualifiers: COPD type: unspecified COPD Qualified Code(s): J44.9 - Chronic obstructive pulmonary disease, unspecified Category: Medical Code(s): J44.9 - Chronic obstructive pulmonary disease, unspecified (8) History of tobacco abuse: Status: Acute Category: Social Hx Code(s): Z87.891 - Personal history of nicotine dependence Plan 1. Patient is very stable at this time but labs have reported that she has multidrug-resistant urinary tract infection requiring IV medications.. Patient has had a Lucio catheter in place since mid March. 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 The reason for coming in is intense pain from the bladder spasms. Lucio catheter was changed in the emergency room. Will need to place upstairs keep on IV antibiotics have pharmacy to evaluate for proper dosing as the meropenem may be needed for 14 days. PICC line will need to be placed because of this. And potential referral for infectious disease to suggesting Dr. Polanco in [place]. Will work tonight to keep the patient comfortable to get these things started tomorrow hopefully everything can be put into place. The lady is remarkable and the fact that she does not want to stop working. She is very aware of the condition she has.
[2024-05-11] MEDS: MEROPENEM 1 GM in 0.9 % SODIUM CHLORIDE 100 ML IV (21:51)
[2024-05-11] MEDS: KETOROLAC 30MG/ML VIAL 15 MG IV (22:03)
--- NOTE | 2024-05-11 22:30 | PC.NURSE ---
Pt has a great amount of blood in urine (dark red color), notified GUILLE Sidhu
[2024-05-12 04:00] VITALS: BP 125/74; PULSE 68; RESP 16; TEMP 36.4; O2SAT 99; BMI 24.4
[2024-05-12] MEDS: KETOROLAC 30MG/ML VIAL 15 MG IV (04:56)
[2024-05-12] MEDS: MEROPENEM 1 GM in 0.9 % SODIUM CHLORIDE 100 ML IV ×2 (04:56→11:56)
--- NOTE | 2024-05-12 06:13 | EXP.EVENT.NO ---
Nursing reported to me that the patient had thoughts that showed situational depression., Per policy request has been made to evaluate for mental health needs. Patient has remained stable all night no other issues since admission
[2024-05-12 07:00] LABS: Basophils # 0.1 K/mm3 (0-0.2); Basophils % 0.9 % (0.1-2.0); Hematocrit 36.1 % (37.0-47.0); Hemoglobin 11.6 g/dL (12.2-16.2); Lymphocytes # 1.5 K/mm3 (0.7-4.5); Lymphocytes % 23.3 % (10-50); Mean Corpuscular HGB Conc 32.1 g/dL (31.8-35.4); Mean Platelet Volume 11.9 fl (7.4-10.4); Monocytes # 0.7 K/mm3 (0.1-1.0); Monocytes % 10.5 % (1.7-9.3); Neutrophils # 4.2 K/mm3 (1.8-7.8); Neutrophils % 64.8 % (37.0-80.0); Platelet Count 238 K/mm3 (142-424); Red Blood Count 4.15 M/mm3 (4.20-5.40); Red Cell Distribution Width 13.8 % (11.5-17.5); White Blood Count 6.5 K/mm3 (4.8-10.8)
[2024-05-12 07:14] LABS: Anion Gap 7.6 mEq/L (5-15); Bilirubin,Total 0.5 mg/dl (0.2-1.3); Blood Urea Nitrogen 25 mg/dl (7-17); Calcium 8.7 mg/dl (8.4-10.2); Carbon Dioxide 25 mmol/L (22.0-30.0); Chloride 107 mmol/L (98-107); Creatinine Clearance Estimated 71 mL/min (50-200); Estimated Glomerular Filt Rate 73 ml/min (>60); GFR (African American) 89 ML/MIN (>60); Glucose 76 mg/dl (74-100); Potassium 3.6 mmoL/L (3.5-5.1); Sodium 136 mmol/L (136-145)
[2024-05-12 07:15] LABS: Alanine Aminotransferase 15 U/L (12-78); Albumin Level 3.3 g/dl (3.5-5.0); Albumin/Globulin Ratio 1.7 (1.1-1.8); Alkaline Phosphatase 48 U/L (38-126); Aspartate Amino Transferase 25 U/L (14-36); Globulin 1.9 g/dL (1.3-3.2); Total Protein,Serum 5.2 g/dl (6.3-8.2)
[2024-05-12 08:00] VITALS: BP 113/68; PULSE 72; RESP 16; TEMP 36.7; O2SAT 98
[2024-05-12] MEDS: PHENAZOPYRIDINE 200MG TABLET 200 MG PO ×3 (08:45→19:13)
[2024-05-12] MEDS: ENOXAPARIN 40MG/0.4ML SYRINGE 40 MG SUBCUT (08:45)
--- NOTE | 2024-05-12 13:22 | CARE MANAGER ---
Patient will require IV antibiotics at discharge. Patient is having a midline placed today for the 6 day course. Patient Choice signed for [employer] and order/ clinical have been faxed.
--- NOTE | 2024-05-12 14:37 | EXP.DC.SUM ---
General Admission date:: 05/11/24 HPI HPI HPI: Ms. Zaldivar a 58-year-old female, has come to the emergency room today due to significant bladder spasm causing great pain. She has an indwelling catheter that is there due to urethral mass and bladder mass. Patient is noted to having previous bladder cancer treated in her 20s. Patient saw Dr. Davidson in the emergency room on 1110 of this year. Catheter was placed. And noting that catheter was also replaced on April 28 according to the patient. Per the patient she is expecting to start chemotherapy. It is noted that she has some concerning lymph node also previous CT scan a area in the spleen and questionable areas in the lungs. Patient was a long-term smoker but stopped in June 2023 after significant episode of pneumonia. Patient has been noted as having a urinary tract infection that is resistant with Morganella Morganii. Resistance to all except meropenem and ertapenem. Both drugs will require long-term IV use of a minimum of 14 days. Given first dose of meropenem in the emergency room. Pharmacy consult done for dosing, setting up for PICC line placement tomorrow. Then to consider referral to Dr. Polanco in [place] infectious disease to follow. 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 I have explained the PICC line placement and why it would be necessary. Or that she would have to come in having IV antibiotics done which just was not practical. And she would not be able to work. Patient is insistent that she continues to work and states that she will then protect the PICC line the best she can Patient is stable at this time except for the intermittent bladder spasms which give a pain of 9 out of 10, we are now trying a couple things going to give 1 dose of Toradol to see if this will help. Noting that the patient has a history of hematuria but her CBC is normal at this time with normal platelets Hospital Course Hospital Course Hospital Course: Brandi Zaldivar is a 58 year old female who was admitted for a history of multi-drug resistant UTI. #Multi drug resistant UTI - History of reucrrently growing MDR Morganella Moganii, with most recent culture in the past week at . - Due to resistance, started on ertepenem with improvement in symptoms. - Placed midline, and discharged with ertepenem for 6 more days. - Vitals stable, no signs of sepsis. #Uretheral, bladder cancer #Bladder spasms - Following with urology for definitive treatment, with upcoming procedure planned. Former smoker. - Discharged with imipramine for spasms. Total time spent on discharge: 32 minutes on chart review, counseling, documentation, and direct care with patient. Exam Data for Last 24 hours Vital signs and Labs for Last 24 Hours: Temp Pulse Resp BP Pulse Ox O2 Del Method 98.1 F 72 16 113/68 98 Room Air 05/12/24 08:00 05/12/24 08:00 05/12/24 08:00 05/12/24 08:00 05/12/24 08:00 05/12/24 13:00 Laboratory Results - last 24 hr 05/11/24 20:10: Urine Color Yellow, Urine Appearance Cloudy, Urine pH 6.0, Ur Specific [place] 1.020, Urine Protein 2+ A, Urine Glucose (UA) Negative, Urine Ketones Negative, Urine Blood 3+ A, Urine Nitrate Negative, Urine Bilirubin Negative, Urine Urobilinogen 0.2, Ur Leukocyte Esterase 2+ A, Urine RBC Tntc, Urine WBC Tntc, Ur Squamous Epith Cells 50-100, Urine Bacteria 4+ 05/11/24 20:19: WBC 14.0 H, RBC 4.54, Hgb 12.6, Hct 38.8, MCV 85.5, MCH 27.8, MCHC 32.5, RDW 13.5, Plt Count 288, MPV 11.7 H, Neut % (Auto) 74.9, Lymph % (Auto) 17.4, Real % (Auto) 6.3, Eos % (Auto) 0.3, Baso % (Auto) 0.7, Neut # (Auto) 10.5 H, Lymph # (Auto) 2.4, Real # (Auto) 0.9, Eos # (Auto) 0.0, Baso # (Auto) 0.1, Sodium 136, Potassium 4.2, Chloride 105, Carbon Dioxide 22, Anion Gap 13.2, BUN 25 H, Creatinine 0.80, Estimated Creat Clear 70, Estimated GFR 73, Est GFR ( Amer) 89, Glucose 97, Calcium 9.5, Magnesium 2.0, Total Bilirubin 0.2, AST 25, ALT 18, Alkaline Phosphatase 63, Total Protein 6.6, Albumin 4.3, Globulin 2.3, Albumin/Globulin Ratio 1.9 H 05/12/24 06:05: WBC 6.5 D, RBC 4.15 L, Hgb 11.6 L, Hct 36.1 L, MCV 87.0, MCH 28.0, MCHC 32.1, RDW 13.8, Plt Count 238, MPV 11.9 H, Neut % (Auto) 64.8, Lymph % (Auto) 23.3, Real % (Auto) 10.5 H, Eos % (Auto) 0.0 L, Baso % (Auto) 0.9, Neut # (Auto) 4.2, Lymph # (Auto) 1.5, Real # (Auto) 0.7, Eos # (Auto) 0.0, Baso # (Auto) 0.1, Sodium 136, Potassium 3.6, Chloride 107, Carbon Dioxide 25, Anion Gap 7.6, BUN 25 H, Creatinine 0.80, Estimated Creat Clear 71, Estimated GFR 73, Est GFR ( Amer) 89, Glucose 76 D, Calcium 8.7, Total Bilirubin 0.5, AST 25, ALT 15, Alkaline Phosphatase 48, Total Protein 5.2 L, Albumin 3.3 L D, Globulin 1.9, Albumin/Globulin Ratio 1.7 I & O for Last 24 hours: Intake & Output 05/09/24 05/10/24 05/11/24 05/12/24 23:59 23:59 23:59 23:59 Intake Total 600 / 600 Output Total 800 / 800 Balance -200 / -200 Weight 60.237 kg 60.237 kg Constitutional Constitutional: no acute distress *Routine HEENT Exam Head: Present normocephalic Eye: Present EOMI and PERRL ENT: Present mucous membranes moist *Routine Neck Exam Neck: Present supple; Absent lymphadenopathy *Routine Respiratory Exam Respiratory: Present CTA bilaterally *Routine Cardiovascular Exam Cardiovascular: Present RRR *Routine Abdominal Exam Abdominal: Present soft and normoactive bowel sounds; Absent tenderness *Routine Extremities Exam Extremities: Absent cyanosis, clubbing or edema *Routine Skin Exam Skin: Present warm; Absent rash *Routine Neurological Exam Neurological: Present alert and oriented X3 Results Data Completed and Pending Labs on day of discharge: Labs from last 24 hours 05/12/24 05/11/24 05/11/24 06:05 20:19 20:10 WBC 6.5 D 14.0 H RBC 4.15 L 4.54 Hgb 11.6 L 12.6 Hct 36.1 L 38.8 MCV 87.0 85.5 MCH 28.0 27.8 MCHC 32.1 32.5 RDW 13.8 13.5 Plt Count 238 288 MPV 11.9 H 11.7 H Neut % (Auto) 64.8 74.9 Lymph % (Auto) 23.3 17.4 Real % (Auto) 10.5 H 6.3 Eos % (Auto) 0.0 L 0.3 Baso % (Auto) 0.9 0.7 Neut # (Auto) 4.2 10.5 H Lymph # (Auto) 1.5 2.4 Real # (Auto) 0.7 0.9 Eos # (Auto) 0.0 0.0 Baso # (Auto) 0.1 0.1 Sodium 136 136 Potassium 3.6 4.2 Chloride 107 105 Carbon Dioxide 25 22 Anion Gap 7.6 13.2 BUN 25 H 25 H Creatinine 0.80 0.80 Estimated Creat Clear 71 70 Estimated GFR 73 73 Est GFR ( Amer) 89 89 Glucose 76 D 97 Calcium 8.7 9.5 Magnesium 2.0 Total Bilirubin 0.5 0.2 AST 25 25 ALT 15 18 Alkaline Phosphatase 48 63 Total Protein 5.2 L 6.6 Albumin 3.3 L D 4.3 Globulin 1.9 2.3 Albumin/Globulin Ratio 1.7 1.9 H Urine Color Yellow Urine Appearance Cloudy Urine pH 6.0 Ur Specific [place] 1.020 Urine Protein 2+ A Urine Glucose (UA) Negative Urine Ketones Negative Urine Blood 3+ A Urine Nitrate Negative Urine Bilirubin Negative Urine Urobilinogen 0.2 Ur Leukocyte Esterase 2+ A Urine RBC Tntc Urine WBC Tntc Ur Squamous Epith Cells 50-100 Urine Bacteria 4+ DS: Diagnosis Discharge Diagnosis (1) Mass of bladder: Status: Acute Code(s): N32.89 - Other specified disorders of bladder (2) Bladder cancer: Status: Acute Code(s): C67.9 - Malignant neoplasm of bladder, unspecified Qualifiers: Bladder location: unspecified site Qualified Code(s): C67.9 - Malignant neoplasm of bladder, unspecified (3) Bladder spasm: Status: Acute Code(s): N32.89 - Other specified disorders of bladder (4) Infection with multi-drug resistant microorganisms: Status: Acute (5) Complicated urinary tract infection: Status: Acute Code(s): N39.0 - Urinary tract infection, site not specified (6) Hematuria: Status: Acute Code(s): R31.9 - Hematuria, unspecified Qualifiers: Hematuria type: gross Qualified Code(s): R31.0 - Gross hematuria (7) COPD (chronic obstructive pulmonary disease): Status: Acute Code(s): J44.9 - Chronic obstructive pulmonary disease, unspecified Qualifiers: COPD type: unspecified COPD Qualified Code(s): J44.9 - Chronic obstructive pulmonary disease, unspecified (8) History of tobacco abuse: Status: Acute Code(s): Z87.891 - Personal history of nicotine dependence Meds Home Medications and Allergies Home Medications ?Medication ?Instructions ?Recorded ?Confirmed ?Type imipramine HCl 25 mg tablet 25 mg PO HS Bladder spasms #30 tabs 05/12/24 05/19/24 Rx New Prescriptions to Start Prescriptions: imipramine HCl Hira Lawson Allergies Allergy/AdvReac Type Severity Reaction Status Date / Time morphine Allergy Other Verified 05/19/24 11:44 Discharge Plan Disposition Patient Disposition: Home, Self-Care Condition: Fair Follow up Plan Follow up with: South Swift MD [Primary Care Provider] - 05/19/24 11:00 am Prescriptions/Medication Reconciliation: New imipramine HCl 25 mg tablet 25 mg PO HS Qty: 30 0RF Problem Reconciliation Problems Reviewed?: Yes Patient Discharge Instructions Patient Instructions: Urinary Tract Infection Print Language: Citizen Of [place] Providers Primary Care Provider: South Swift Admit Provider: Hira Lawson Attending Provider: Hira Lawson
[2024-05-12] MEDS: ERTAPENEM SODIUM 1 GM in 0.9 % SODIUM CHLORIDE 50 ML IV (15:09)
[2024-05-12 16:00] VITALS: BP 139/56; PULSE 72; RESP 18; TEMP 36.4; O2SAT 96
--- NOTE | 2024-05-12 19:03 | PC.NURSE ---
Patient ready for d/c md walters to enter orders for home pyridium before she leaves.
--- NOTE | 2024-05-15 15:25 | CARE MANAGER ---
Called and spoke with patient regarding recent discharge. Patient stated that she is doing ok, has started new medication and was aware of scheduled F/U appt. No concerns/questions at time of call.
== END 2024-05-12 19:34 | disposition home or self-care (01) ==
LOC: ER 19:41 → 2ND 19:54
PROVIDERS: Nurse Practitioner Family; Physician Assistant; Admitting Provider Student in an Organized Health Care Education/Training Program; Emergency Provider Emergency Medicine; PCP Family Medicine; Visit Provider Student in an Organized Health Care Education/Training Program
DX: N39.0 Urinary tract infection, site not specified (principal); C67.9 Malignant neoplasm of bladder, unspecified; R31.0 Gross hematuria; J44.9 Chronic obstructive pulmonary disease, unspecified; Z87.891 Personal history of nicotine dependence; B96.89 Other specified bacterial agents as the cause of diseases classified elsewhere; Z16.24 Resistance to multiple antibiotics; N32.89 Other specified disorders of bladder
CPT/HCPCS: 36410; 36415; 51702; 80053; 81001; 83735; 85025; 87077; 87086; 87088; 87186; 99285; G0378; J1335; J1650; J1885; J2185

== ENCOUNTER 2024-06-05 12:42 | Outpatient (CLI) | payer OTHER, SELFPAY ==
--- NOTE | 2024-06-05 12:52 | CT_ITS ---
FINAL REPORT TECHNIQUE: Routine axial images were obtained from the lung apices to below the diaphragm following IV contrast administration. Individualized dose reduction techniques using automated exposure control or adjustment of the mA and/or kV according to the patient size were employed. CLINICAL HISTORY: MALIGNANT NEOPLASM OF URINARY BLADDER COMPARISON: 07/04/2023 FINDINGS: The moderate right pleural effusion has resolved. Patchy airspace infiltrates bilaterally, particularly in the right lung have significantly improved. There is linear scarring bilaterally. No adenopathy or mass lesion is present. A small hiatal hernia is noted. IMPRESSION: Interval of right pleural effusion with significant improvement of patchy airspace infiltrates. Reviewed, Interpreted and Dictated by Charlie Wiseman MD Transcribed by Mary Kang Authenticated and [facility]
[2024-06-05] MEDS: SODIUM CHLORIDE 0.9% 10ML SYR (RAD ONLY) 10 ML IV (13:18)
[2024-06-05] MEDS: IOPAMIDOL-370 (76%);100ML BOTTLE 75 ML IV (13:18)
--- NOTE | 2024-06-05 13:32 | ECG_ITS ---
APPROVED REPORT Exam: Resting ECG HR:76 bpm ECG Measurements Heart Rate 76 AXES VA 170 P 68 QRSd 94 QRS 51 QT 379 T 53 QTc 409 Conclusion SINUS RHYTHM NORMAL ECG UNCONFIRMED REPORT Electronically signed by : Ciaran Park MD 06/08/2024 10:55:12
== END 2024-06-05 23:59 | disposition home or self-care (01) ==
PROVIDERS: PCP Family Medicine; Visit Provider Urology
DX: C67.9 Malignant neoplasm of bladder, unspecified (principal)
CPT/HCPCS: 71260; 93005; Q9967

== ENCOUNTER 2024-06-05 13:45 | Emergency (ER) | payer OTHER, SELFPAY ==
[2024-06-05] VITALS (13 sets, daily range): BP systolic 127–160; BP diastolic 70–79; PULSE 70–90; RESP 12–21; TEMP 36.8; O2SAT 98–100; BMI 24.1
--- NOTE | 2024-06-05 14:13 | HMH.EDGENADL ---
Discharge Plan Disposition Patient Disposition: Home, Self-Care Condition: Good Prescriptions Prescriptions: No Action imipramine HCl 25 mg tablet 25 mg PO HS Qty: 30 0RF Referrals Follow up/Referrals: South Swift MD [Primary Care Provider] - See instructions Activity Restrictions/Add. Instructions Additional Instructions/Restrictions: You were evaluated in the emergency department today. At this time, it is not clear whether this was an allergic reaction or just flushing. Please follow-up closely with primary care. If you develop worsening symptoms, return to the emergency department right away. Take 50 mg of Benadryl every 8 hours as needed for itching/allergic reaction type symptoms Clinical Impressions Clinical Impression: Flushing Instructions Patient Instructions: DI for Food Allergy, DI for Rash Print Language Print Language: Kenyan Discharge ED Provider: Sindy Hardy General Adult HPI General Chief complaint: Allergic Reaction Stated complaint: possible reaction to contrast in radiology Time Seen by Provider: 06/05/24 13:58 Mode of Arrival: Ambulatory Source of Information: Patient Limitations: No Limitations Description of Symptoms (Recalled from ER Triage Doc. by RN): Pt states she had an outpatient CT today, and left the appointment for an ECHO. At the echo appointment pt was noted to have redness across her chest. Pt denies itching. Airway intact. Pt states she has a PMH of bladder cancer. History of Present Illness HPI narrative: This patient is a 58-year-old female with a history of COPD, bladder cancer, tobacco use disorder, depression presenting to the emergency department for evaluation with concern for possible allergic reaction. Patient had an outpatient CT with contrast today, which she has had multiple times in the past, and then she had an echo afterward. The certified surgical technologist noticed that the patient's chest was very red and warm. The patient states that she does feel a little bit flushed but she denies any itching, posterior oropharyngeal swelling, sensation that her throat is tight, difficulty breathing, difficulty swallowing, wheezing, nausea, vomiting, abdominal cramping, or other concerns. She states that she did not even know that she was read until they told her. She denies any other concerns or complaints at this time. Of note, she supposed to be admitted tonight for antibiotics overnight and then surgery in the morning at . She states that she will be heading to after leaving here. Given this, she does not want any Benadryl that would make her sleepy. Related Data Previous Rx's ?Medication ?Instructions ?Recorded imipramine HCl 25 mg tablet 25 mg PO HS Bladder spasms #30 tabs 05/12/24 Allergies Allergy/AdvReac Type Severity Reaction Status Date / Time morphine Allergy Other Verified 05/19/24 11:44 [facility] Disclaimer: The information contained in this section may have been updated after the patient was seen, as this information can be updated by other users. Medical History Sepsis without septic shock Multifocal pneumonia Pneumonia Acute hypoxemic respiratory failure Sepsis Influenza Pain Hypokalemia Hypocalcemia Bladder infection Under or uninsured Substance abuse Alcoholism Anxiety Bladder cancer Depression Surgical History Hx of tonsillectomy History of mandibular surgery Hx of hysterectomy Family History Other Bleeding disorder Cancer Coronary artery disease Diabetes Hypertension Social History Smoking Status: Current every day smoker tobacco type: cigarettes years smoked: 30 smoking status stop date: 2 weeks ago , also had paused after June for pneumonia alcohol intake: current alcohol intake frequency: holidays/special occasions only substance use type: former substance user current occupational status: employed Travel in the last 8 weeks: None Have you lived/traveled outside [place] in past 30 days?: No Contact w/someone who lives/traveled outside [place] past 30 days?: No Exposure to someone with infectious disease in past 14 days?: No Do you have a fever (greater than 100.4 F or 38 C)?: No Have you tested positive for COVID-19: No Exposed to someone with COVID-19 in past 14 days?: No Do you have a sore throat?: No Do you have a cough?: No Do you have any weakness?: No Do you have any diarrhea?: No Are you experiencing any unusual bleeding?: No Do you have any muscle aches/pain?: No Do you have any abdominal pain?: No Are you experiencing loss of taste or smell?: No Other Medical History Have you received the Flu Vaccine for this season: No Have you received the Pneumonia Vaccine: No ROS Obtained: Yes All systems reviewed & no additional complaints except as documented Physical Exam General General appearance: alert and in no apparent distress Head Head exam: atraumatic and normocephalic Eye Eye exam: Present normal appearance, PERRL and EOMI ENT ENT exam: Present normal exam, normal oropharynx, mucous membranes moist and normal external ear exam Neck Neck exam: Present normal inspection, full ROM and trachea midline; Absent tenderness Chest Chest inspection: Present normal inspection and symmetric chest wall rise; Absent tenderness Respiratory Respiratory exam: Present normal lung sounds bilaterally; Absent respiratory distress, wheezes, stridor or accessory muscle use Cardiovascular Cardiovascular exam: Present regular rate and normal rhythm Abdominal Exam Abdominal exam: Present soft; Absent distention, tenderness or guarding Extremities Exam Extremities exam: Present normal inspection, full ROM and normal capillary refill; Absent tenderness or edema Back Exam Back exam: Present normal inspection and full ROM; Absent tenderness Neurological Exam Neurological exam: Present alert, oriented X3, CN II-XII intact and normal gait; Absent motor sensory deficit Psychiatric Psychiatric exam: Present normal affect and normal mood Skin Skin exam: Present warm, dry and erythema (redness to chest that is blanching, no urticaria) Medical Decision Making Medical Records Medical records reviewed: Yes I reviewed the patient's medical records. Screening: Per USPSTF and CDC recommendations, given the prevalence of disease in our region, it is our hospital?s policy to screen for HIV and viral Hepatitis for all patients aged 18 and over and those with ongoing risk factors. [place] Inquiry Pt receiving controlled substance: No Vital Signs: 06/05/24 13:50 06/05/24 13:52 06/05/24 14:00 Temperature Temperature Source Pulse Rate 85 90 72 Pulse Rate [Left] Respiratory Rate 14 Blood Pressure 137/70 Blood Pressure [Right Arm] Blood Pressure Mean Blood Pressure Mean [Right Arm] Blood Pressure Source [Right Arm] Blood Pressure Position [Right Arm] 02 Sat by Pulse Oximetry 98 100 100 Oxygen Delivery Method 06/05/24 14:07 06/05/24 14:14 06/05/24 14:15 Temperature 98.2 F Temperature Source Oral Pulse Rate 71 Pulse Rate [Left] 70 Respiratory Rate 19 16 12 Blood Pressure Blood Pressure [Right Arm] 137/70 Blood Pressure Mean Blood Pressure Mean [Right Arm] 92 Blood Pressure Source [Right Arm] Automatic Cuff Blood Pressure Position [Right Arm] Supine 02 Sat by Pulse Oximetry 100 100 Oxygen Delivery Method Room Air Room Air 06/05/24 14:25 06/05/24 14:30 06/05/24 14:31 Temperature Temperature Source Pulse Rate 71 79 76 Pulse Rate [Left] Respiratory Rate 16 19 20 Blood Pressure 158/72 H 127/74 Blood Pressure [Right Arm] Blood Pressure Mean Blood Pressure Mean [Right Arm] Blood Pressure Source [Right Arm] Blood Pressure Position [Right Arm] 02 Sat by Pulse Oximetry 100 100 100 Oxygen Delivery Method 06/05/24 14:45 06/05/24 15:00 06/05/24 15:30 Temperature Temperature Source Pulse Rate 78 70 75 Pulse Rate [Left] Respiratory Rate 20 17 21 Blood Pressure 149/76 H 160/79 H Blood Pressure [Right Arm] Blood Pressure Mean 106 Blood Pressure Mean [Right Arm] Blood Pressure Source [Right Arm] Blood Pressure Position [Right Arm] 02 Sat by Pulse Oximetry 100 100 100 Oxygen Delivery Method Room Air 06/05/24 15:50 Temperature 98.2 F Temperature Source Oral Pulse Rate 74 Pulse Rate [Left] Respiratory Rate 18 Blood Pressure 160/79 H Blood Pressure [Right Arm] Blood Pressure Mean Blood Pressure Mean [Right Arm] Blood Pressure Source [Right Arm] Blood Pressure Position [Right Arm] 02 Sat by Pulse Oximetry Oxygen Delivery Method Room Air Lab Data Lab results reviewed: Yes I reviewed the patient's lab results. Lab Results 06/05/24 14:00: WBC 6.0, RBC 4.55, Hgb 12.7, Hct 39.6, MCV 87.0, MCH 27.9, MCHC 32.1, RDW 14.3, Plt Count 242, MPV 11.7 H, Neut % (Auto) 73.2, Lymph % (Auto) 16.3, [place] % (Auto) 8.1, Eos % (Auto) 1.3, Baso % (Auto) 0.8, Neut # (Auto) 4.4, Lymph # (Auto) 1.0, [place] # (Auto) 0.5, Eos # (Auto) 0.1, Baso # (Auto) 0.1, Sodium 134 L, Potassium 3.9, Chloride 101, Carbon Dioxide 24, Anion Gap 12.9, BUN 20 H, Creatinine 0.70, Estimated Creat Clear 81, Estimated GFR 85, Est GFR ( Amer) 103, Glucose 86, Calcium 8.5, Total Bilirubin 0.3, AST 23, ALT 19, Alkaline Phosphatase 86, Total Protein 5.9 L, Albumin 3.8, Globulin 2.1, Albumin/Globulin Ratio 1.8 06/05/24 14:00 06/05/24 14:00 Orders (Tests/Meds): ED MEDICATIONS Discontinued Medications Generic Name Dose Route Start Last Admin Trade Name Albaroq PRN Reason Stop Dose Admin Dexamethasone Sodium Phosphate 10 mg 06/05/24 14:10 06/05/24 14:17 Dexamethasone 4mg/Ml 1ml Vial IV 06/05/24 14:11 10 mg ONCE ONE Administration Famotidine 20 mg 06/05/24 14:10 06/05/24 14:18 Famotidine 20mg/2ml Vial IV 06/05/24 14:11 20 mg ONCE ONE Administration Lactated Ringer's 1,000 mls @ 999 mls/hr 06/05/24 14:10 06/05/24 14:17 Lactated Ringer's 1000 Ml Bag IV 06/05/24 15:10 999 mls/hr .Q1H1M ONE Administration Loratadine 10 mg 06/05/24 14:10 06/05/24 15:18 Loratadine 10mg Tablet PO 06/05/24 14:11 10 mg ONCE ONE Administration Sodium Chloride 8 ml 06/05/24 14:10 Sodium Chloride 0.9% 10ml Vial IV 07/05/24 14:09 NEEDED PRN dilute pepcid ORDERS Category Date Time Status Complete Blood Count Auto Diff Stat Lab 06/05/24 14:00 Completed Comprehensive Metabolic Panel Stat Lab 06/05/24 14:00 Completed Medical Decision Narrative: In summary, this patient is a 58-year-old female presenting to the Emergency Department for evaluation of redness to her chest after receiving IV contrast earlier. Differential diagnoses considered include but are not limited to lotion, allergic reaction, urticaria. Ruling out the most morbid conditions drove assessment. It should be noted patient's history includes bladder cancer, tobacco use, COPD which are not at goal therapy. This complicates all aspects of care by increasing patient's risk for morbidity. On exam, the patient is very well-appearing. I have low concern for allergic reaction based on clinical presentation with only isolated erythema to her chest that is blanching. She has no urticaria, no posterior oropharyngeal swelling, stridor, no wheezing, no abdominal cramping, nausea, or vomiting. Just to be on the safe side, I did give her IV dexamethasone, Pepcid, and oral Claritin. She does not want Benadryl at this time because she has to drive herself to [place] to be admitted for surgery. Patient's labs came back reassuring without acute change from prior lab evaluation. on multiple subsequent reassessments, she is resting comfortably with no worsening in symptoms and actual improvement in her redness of her chest. Given this, I feel that she is appropriate for discharge. She was given instructions for supportive management and strict return precautions. She was discharged after all questions were answered Critical Care Critical Care Time Critical Care Time: No
[2024-06-05 14:15] LABS: Basophils # 0.1 K/mm3 (0-0.2); Basophils % 0.8 % (0.1-2.0); Eosinophils # 0.1 K/mm3 (0.0-0.4); Eosinophils % 1.3 % (0.1-12.0); Hematocrit 39.6 % (37.0-47.0); Hemoglobin 12.7 g/dL (12.2-16.2); Lymphocytes % 16.3 % (10-50); Mean Corpuscular HGB Conc 32.1 g/dL (31.8-35.4); Mean Corpuscular Hemoglobin 27.9 pg (27.0-31.2); Mean Platelet Volume 11.7 fl (7.4-10.4); Monocytes # 0.5 K/mm3 (0.1-1.0); Monocytes % 8.1 % (1.7-9.3); Neutrophils # 4.4 K/mm3 (1.8-7.8); Neutrophils % 73.2 % (37.0-80.0); Platelet Count 242 K/mm3 (142-424); Red Blood Count 4.55 M/mm3 (4.20-5.40); Red Cell Distribution Width 14.3 % (11.5-17.5)
[2024-06-05] MEDS: DEXAMETHASONE 4MG/ML 1ML VIAL 10 MG IV (14:17)
[2024-06-05] MEDS: LACTATED RINGERS 1000ML 1,000 ML 999 ML IV (14:17)
[2024-06-05] MEDS: FAMOTIDINE 20MG/2ML VIAL 20 MG IV (14:18)
--- NOTE | 2024-06-05 14:26 | PC.NURSE ---
1426 pharmacy called to tube down claritin tablet
[2024-06-05] MEDS: LORATADINE 10MG TABLET 10 MG PO (15:18)
[2024-06-05 15:35] LABS: Albumin Level 3.8 g/dl (3.5-5.0); Chloride 101 mmol/L (98-107)
[2024-06-05 15:36] LABS: Potassium 3.9 mmoL/L (3.5-5.1); Sodium 134 mmol/L (136-145)
[2024-06-05 15:38] LABS: Alanine Aminotransferase 19 U/L (12-78); Albumin/Globulin Ratio 1.8 (1.1-1.8); Alkaline Phosphatase 86 U/L (38-126); Anion Gap 12.9 mEq/L (5-15); Aspartate Amino Transferase 23 U/L (14-36); Bilirubin,Total 0.3 mg/dl (0.2-1.3); Blood Urea Nitrogen 20 mg/dl (7-17); Carbon Dioxide 24 mmol/L (22.0-30.0); Creatinine Clearance Estimated 81 mL/min (50-200); Estimated Glomerular Filt Rate 85 ml/min (>60); GFR (African American) 103 ML/MIN (>60); Globulin 2.1 g/dL (1.3-3.2); Total Protein,Serum 5.9 g/dl (6.3-8.2)
[2024-06-05 15:39] LABS: Calcium 8.5 mg/dl (8.4-10.2); Glucose 86 mg/dl (74-100)
== END 2024-06-05 15:50 | disposition home or self-care (01) ==
PROVIDERS: Emergency Provider Emergency Medicine; PCP Family Medicine
DX: R23.2 Flushing (principal)
CPT/HCPCS: 80053; 85025; 96361; 96374; 96375; 99283; J1100; J7120; S0028

== ENCOUNTER 2024-09-26 20:40 | Outpatient (CLI) | payer OTHER, SELFPAY | END 2024-09-26 23:59 | disposition home or self-care (01) | LOC: LAB.DROPOF 20:40 | PROVIDERS: PCP Nurse Practitioner; Visit Provider Nurse Practitioner | DX: T14.8XXA Other injury of unspecified body region, initial encounter (principal); W54.0XXA Bitten by dog, initial encounter | CPT/HCPCS: 87070; 87077; 87186; 87205 ==